=== PATIENT | male | born 1975 | race Caucasian/White ===

== ENCOUNTER 2022-12-03 15:43 | Emergency (ER) | payer OTHER, SELFPAY ==
[2022-12-03 16:25] VITALS: BP 110/76; PULSE 99; RESP 18; TEMP 36.9; O2SAT 97; BMI 31.5
--- NOTE | 2022-12-03 16:32 | ED_ITS ---
HPI - Syncope General Time Seen by Provider: 16:32 Date Seen: 12/03/22 Chief Complaint: Syncope/Fainted Stated Complaint: Passed out in Kitchen Time Seen by Provider: 12/03/22 16:30 Source: patient, family and RN notes reviewed Mode of arrival: ambulatory Limitations: no limitations History of Present Illness HPI narrative: 47-year-old male who presents today after syncopal episode and palpitations. Patient reports that he went up and down the stairs and after that felt like his heart was racing. He laid down for a while and symptoms did not improve, got up and took a couple of steps, passed out. Did not hit his head it does not complain of any pain. Denies any chest pain associated with this or shortness of breath, however does note that he has had recent increase in his reflux symptoms primarily in the evening. He denies nausea, vomiting, diarrhea. No new medications. He says that his heart rate felt fast but not irregular and spouse reports that was around 180. He drinks about 1 cup of coffee a day but no other caffeine or energy drinks or pre workout drinks. Patient and spouse report that patient had a similar episode to this on October h although he did not pass out at that time. Head tried to follow-up with his primary care provider but was not able to schedule an appointment. Related Data Home Medications Medication Instructions Recorded Confirmed bupropion HCl 300 mg 24 hr tablet, 450 mg PO DAILY 12/03/22 12/03/22 extended release dextroamphetamine-amphetamine ER 30 mg PO DAILY 12/03/22 12/03/22 30 mg 24hr capsule,extend release (Adderall XR) escitalopram oxalate 5 mg tablet 5 mg PO DAILY 12/03/22 12/03/22 (Lexapro) loratadine 10 mg tablet 10 mg PO DAILY 12/03/22 12/03/22 Allergies Allergy/AdvReac Type Severity Reaction Status Date / Time No Known Drug Allergies Allergy Verified 12/03/22 16:22 Review of Systems Status of ROS: Reports: 10 or more systems reviewed and unremarkable except as noted in History and below Exam Narrative: Exam Narrative: General: Well-developed and well-nourished, no acute distress Head: Atraumatic and normocephalic Eyes: Pupils are equal reactive, extraocular motions intact, conjunctiva clear ENT: External nose and ears are normal, posterior pharynx without erythema or exudate Neck: No midline cervical tenderness, full spontaneous range of motion the neck, trachea midline, no adenopathy Heart: Regular rate and rhythm no murmurs or thrills Lungs: Clear to auscultation bilaterally without wheezes or crackles Abdomen: Soft, nontender, nondistended with active bowel sounds Musculoskeletal: No tenderness, deformity, or edema Neurologic: Awake, alert, and oriented x3, no gross focal neurologic deficits, cranial nerves intact as tested Psych: Mood and affect are appropriate Skin: No rashes Const: Vital Signs, click to edit/add: Vital Signs - 24 hr 12/03/22 16:25 Temperature 98.4 F Pulse Rate [Right Pulse Oximeter] 99 Respiratory Rate 18 Blood Pressure [Ri ght Upper Arm] 110/76 Pulse Oximetry 97 Oxygen Delivery Me thod Room Air Course Course Hospital Course: Patient seen examined, prior records reviewed. Patient today presents with palpitations and a syncopal episode. By history it sounds like rate was about 180 and was regular. This by description would be most consistent with SVT, cannot exclude flutter fibrillation but again reported to be regular so fibrillation less likely. No chest pain associated with this episode but does note increased reflux symptoms recently. This may be contributing to some cardiac irritability precipitating SVT, or could be related to anginal symptom. Labs and fluids are ordered and will discuss further treatment with the patient. Consider beta-tito temporarily until patient can be seen by Cardiology and have a Holter monitor and further testing. Reevaluation(s) Time of Reevaluation #1: 17:37 Reevaluation #1: Labs independently interpreted by me with normal hemoglobin, negative troponin, reassuring metabolic panel and magnesium. Patient remains stable in the emergency department and asymptomatic. Needs to follow-up with cardiology and primary care for Zio patch and consideration for further testing and possible ab lation depending on dysrhythmia. Discussed possible beta-tito initiation with the patient. He would like to wait and speak to his regular doctor and have more testing done prior to this. His spouse has had prior cardiac surgery and apparently had SVT so they are familiar with what this is, evaluation treatment. Vital Signs Vital signs: Initial Vital Signs Temperature 98.4 F 12/03/22 16:25 Temperature Source Temporal Artery Scan 12/03/22 16:25 Pulse Rate 99 12/03/22 16:25 Respiratory Rate 18 12/03/22 16:25 Blood Pressure 110/76 12/03/22 16:25 Blood Pressure Mean 87 12/03/22 16:25 Blood Pressure Position Sitting 12/03/22 16:25 Pulse Oximetry 97 12/03/22 16:25 Oxygen Delivery Method Room Air 12/03/22 16:25 Vital Signs Temperature 98.4 F 12/03/22 16:25 Pulse Rate 99 12/03/22 16:25 Respiratory Rate 18 12/03/22 16:25 Blood Pressure 110/76 12/03/22 16:25 Pulse Oximetry 97 12/03/22 16:25 Oxygen Delivery Method Room Air 12/03/22 16:25 Temperature 98.4 F 12/03/22 16:25 Pulse Rate 99 12/03/22 16:25 Respiratory Rate 18 12/03/22 16:25 Blood Pressure 110/76 12/03/22 16:25 Pulse Oximetry 97 12/03/22 16:25 Oxygen Delivery Method Room Air 12/03/22 16:25 MDM - Syncope Lab Data Labs: Lab Results 12/03/22 12/03/22 Range/Units 16:43 16:45 WBC 6.17 (4.50-11.00) K/uL RBC 5.75 (4.30-5.90) m/uL Hgb 16.3 (13.5-17.5) gm/dL Hct 48.2 (37.0-53.0) % MCV 84 (80-100) fL MCH 28 (26-34) pg MCHC 34 (32-36) gm/dL RDW Coeff of Andrei 12.0 (11.5-15.5) % Plt Count 349 (140-440) K/uL Neut % (Auto) 49.6 (42.0-72.0) % Lymph % (Auto) 36.6 (20-44) % [place] % (Auto) 10.9 (0.0-11.0) % Eos % (Auto) 1.3 (0.0-7.0) % Baso % (Auto) 0.6 (0.0-3.0) % Neut # (Auto) 3.06 (1.7-7.0) K/uL Lymph # (Auto) 2.26 (0.90-2.90) K/uL [place] # (Auto) 0.70 (0.00-0.90) K/UL Eos # (Auto) 0.08 (0.00-0.50) K/uL Baso # (Auto) 0.04 (0.00-0.30) K/uL Abs Immat Gran (auto) 0.06 (0.00-0.30) K/uL Imm/Tot Granulo (auto) 1.0 % Sodium 136 (135-149) mmol/L Potassium 4.5 (3.6-5.1) mmol/L Chloride 104 (96-114) mmol/L Carbon Dioxide 22 (20-32) mmol/L Anion Gap 10 (7-15) mEq/L BUN 21 (5-24) mg/dL Creatinine 1.0 (0.5-1.5) mg/dL Estimated Creat Clear 105.42 Estimated GFR 95 ml/min Glucose 81 (60-115) mg/dL Calcium 9.1 (8.4-10.6) mg/dL Magnesium 2.2 (1.5-2.6) mg/dL POC Troponin I 0.00 L (0.01-0.04) ng/ml ECG Data Attestation: I personally reviewed and interpreted this ECG as follows: ECG interpretation date: 12/03/22 ECG interpretation time: 16:17 Prior ECG tracings: not available for review Interpretation: Normal sinus rhythm rate 89, no acute ST elevations or depressions, normal intervals, normal axis, QTC 442, IL 160. No prior for comparison. Discharge Plan Discharge Clinical Impression: Heart palpitations, Syncope Patient Disposition: Home w/ Parent or Adult Condition: Stable Instructions: Supraventricular Tachycardia (ED), Heart Palpitations (DC) Additional Instructions: Avoid caffeine and alcohol Follow-up with primary care as soon as possible for further evaluation and treatment Activity Level: Activity as Tolerated Discharge Diet: Regular Prescriptions: No Action loratadine 10 mg tablet 10 mg PO DAILY escitalopram oxalate [Lexapro] 5 mg tablet 5 mg PO DAILY dextroamphetamine-amphetamine [Adderall XR] 30 mg capsule,extended release 24hr 30 mg PO DAILY bupropion HCl 300 mg tablet extended release 24 hr 450 mg PO DAILY Stand Alone Forms: [employer] Info Instructions
[2022-12-03 17:04] LABS: Basophils Absolute Auto 0.04 K/uL (0.00-0.30); Basophils Percent Auto 0.6 % (0.0-3.0); Eosinophils Absolute Auto 0.08 K/uL (0.00-0.50); Eosinophils Percent Auto 1.3 % (0.0-7.0); Hematocrit 48.2 % (37.0-53.0); Hemoglobin* 16.3 gm/dL (13.5-17.5); Immature Granulocytes Abs Auto 0.06 K/uL (0.00-0.30); Lymphocytes Absolute Auto 2.26 K/uL (0.90-2.90); Lymphocytes Percent Auto 36.6 % (20-44); Mean Corpuscular HGB Conc 34 gm/dL (32-36); Mean Corpuscular Hemoglobin 28 pg (26-34); Mean Corpuscular Volume 84 fL (80-100); Monocytes Percent Auto 10.9 % (0.0-11.0); Neutrophils Absolute Auto 3.06 K/uL (1.7-7.0); Neutrophils Percent Auto 49.6 % (42.0-72.0); Platelet Count* 349 K/uL (140-440); Red Blood Count 5.75 m/uL (4.30-5.90); White Blood Count* 6.17 K/uL (4.50-11.00)
[2022-12-03 17:12] LABS: Slide Review Reflex No
[2022-12-03 17:23] LABS: Chloride* 104 mmol/L (96-114); Sodium* 136 mmol/L (135-149)
[2022-12-03 17:24] LABS: Potassium* 4.5 mmol/L (3.6-5.1)
[2022-12-03 17:26] LABS: Est. Creatinine Clearance* 105.42; Estimated Glomerular Filt Rate 95 ml/min
[2022-12-03 17:27] LABS: Anion Gap 10 mEq/L (7-15); Blood Urea Nitrogen* 21 mg/dL (5-24); Calcium* 9.1 mg/dL (8.4-10.6); Carbon Dioxide* 22 mmol/L (20-32); Glucose* 81 mg/dL (60-115); Magnesium* 2.2 mg/dL (1.5-2.6)
[2022-12-03 17:44] VITALS: PULSE 88; O2SAT 97
[2022-12-03 17:45] VITALS: BP 121/86; PULSE 86; O2SAT 98
[2022-12-03 17:46] VITALS: PULSE 87; O2SAT 98
== END 2022-12-03 17:59 | disposition home or self-care (01) ==
PROVIDERS: Emergency Provider Family Medicine; PCP Physician Assistant Medical
DX: R55 Syncope and collapse (principal); R00.2 Palpitations
CPT/HCPCS: 36415; 80048; 83735; 84484; 85025; 93005; 99284

== ENCOUNTER 2023-08-22 20:33 | Outpatient (CLI) | payer OTHER, SELFPAY ==
--- OUTSIDE RECORDS SUMMARY | 2023-08-22 20:36 | XMS_ITS | Continuity of Care Document ---
Author Name [facility] Organization [facility] Care Team Providers Care Hoop Cutter Name Role Phone [facility] Unavailable Unavailable Problems Combined list of problems from Department of Defense and Veterans Affairs facilities. It does not include entries that were removed or entered in error. Problem Status Onset Date Problem Type Date of Resolution Comments Source Exposure to potentially hazardous substance ([facility] [id number]) Active 06/16/19 24 Condition Jun 16, 2023 Entered By: HOLLAND LOPEZ [facility]: [facility] LO[facility] Documentation Initiative [facility] Pain in left ankle and joints of left foot Active 08/31/19 17 Condition [facility] Allergic rhinitis Active Condition [facility] Attention deficit hyperactivity disorder, predominantly inattentive type Active Condition [facility] Depression Active Condition [facility] Erectile dysfunction Active Condition [facility] Family social history Active Condition Jan 14, 2021 Entered By: JOHN CESAR Comment: 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 2 kids.Dec 27, 2022 Entered By: JOHN CESAR Comment: M Aunt w SLE, Mother w MS. +moms side w autoimmune disease. MGF CVA. Dad + depression. 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 [place]ed [place] Entered By: JOHN CESAR Comment: Quit smoking 2009. Over 100 cig/lifetime. No etoh. [facility] Migraine Active Condition [facility] Osteoarthritis Active Condition [facility] Osteoarthritis Active Condition Jun 102018 Entered By: PASCUAL TROTTER Comment: hands [facility] Pes planus Active Condition Feb 01 Entered By: CLAUDIA MUNROE Comment: bilateral, appears to cause left ankle pains [facility] Posttraumatic stress disorder Active Condition [facility] Primary erectile dysfunction Active Condition [facility] Seasonal allergic rhinitis Active Condition [facility] Spasm of bladder Active Condition [facility] Strain of tendon of foot and ankle Active Condition [facility] skin disorders appendage hair follicle folliculitis Inactive Condition FOLLICULITIS: Discussed folliculitis vs pseudo folliculitis. Instructed to obtain a 2 bladed razor instead of the 5 blade razor he is currently using. Continue to shave after showering, but don''t dry face first. Have Rx''d a 5 day course of Septra DS and some topical Bactroban. F/U prn after the abx are complete. No shaving waiver needed. [facility] migraine headache Active Condition [facility] GRAINE HEADACHE: - Diagnosis based on chief complaint and exam findings - Maxalt given at 1020 patient reports symptoms improved - Encouraged to regulate sleep cycle - Don''t skip meals - Increase water/fluid intake - RTC if no improvement or condition worsens - Report to ER if you experience fevers greater than 103, severe headache, visual changes/disturb ances, lightheadedness , syncope, chest pain, tachycardia, SOB, wheezing, numbness, tingling, change in strength, etc - Discussed patient care with preceptor - Patient verbalized agreement and understanding [facility] no psychiatric diagnosis or condition on axis I Inactive Condition [facility] Need For Prophylactic Measure Inactive Condition [facility] visit for: issue medical certificate Inactive Condition [facility] assessment of patient condition work status Active Condition [facility] deviated nasal septum Active Condition [facility] lateral epicondylitis (tennis elbow) left Active Condition [facility] visit for: issue medical certificate fitness Inactive Condition [facility] visit for: issue repeat prescription for medication Inactive Condition [facility] pharyngitis Inactive Condition [facility] upper respiratory infection Inactive Condition [facility] axis V global assess of functioning (GAF) scale ___ (100-0) Active Condition [facility] psychiatric diagnosis or condition deferred on axis II Active Condition [facility] Administrative Evaluation Services Inactive Condition [facility] male erectile disorder Active Condition [facility] prostatitis Active Condition [facility] bladder disorders Active Condition [facility] assess patient condition work-related occupational disease Active Condition [facility] conditions influencing health status Active Condition [facility] visit for: screening exam traumatic brain injury Active Condition [facility] visit for: examination of subpopulation Active Condition [facility] urethritis Inactive Condition DoD pain during urination (dysuria) Active Condition [facility] urinary tract infection Inactive Condition [facility] visit for: services physical pre-deployment Active Condition [facility] tendonitis Active Condition DoD joint pain, localized in the wrist Active Condition DoD tenosynovitis de Quervain's Inactive Condition DoD rhythm disorder Active Condition DoD primary snoring Active Condition DoD post-traumatic stress disorder Active Condition [facility] visit for: occupational health / fitness exam Active Condition [facility]D Need For Vaccination Against Influenza Inactive Condition [facility] pharyngitis acute Inactive Condition [facility] xerosis cutis Inactive Condition DoD anxiety disorder NOS Active Condition DoD plantar fasciitis Inactive Condition [facility] FASCIITIS: - Diagnosis based on chief complaint and exam findings - Plantar Fasciitis exercise handout given - RTC if no improvement or condition worsens - Report to ER if you experience fevers greater than 103, severe headache, visual changes/disturb ances, lightheadedness , syncope, chest pain, tachycardia, SOB, wheezing, numbness, tingling, change in strength, etc - Discussed patient care with preceptor - Patient verbalized agreement and understanding DoD generalized anxiety disorder Inactive Condition [facility] hyperlipidemia Active Condition DoD major depression chronic Active Condition No SI/HIResidual symptoms suggestive of ongoing depression, vs. med side effects,, vs. other. Patient concerned for [facility]ef[facility] for ongoing eval and mgmtNeed assessment for WWQ statusAt risk for PTSD? At risk for TBI[31yo AD male with chronic major depression on Wellbutrin and Celexa, ambien and prn xanax -- requesting psychiatry eval for ongoing eval and tx -- assess and comment on WWQ status.] [facility] closed fracture distal phalanx 2nd finger Inactive Condition [facility] primary insomnia Inactive Condition [facility] allergic rhinitis Active Condition DoD sciatica Inactive Condition [facility] Patient Counseling: Active Condition DoD insomnia Active Condition history of insomnia has done well on this med in the past, needs refill DoD depression Active Condition history o f depression and anxiety, not suicidal or homicidal recently pcs'd needs refill of meds, will temp refill as this is an acute sick call slot, patient will make a routine appt with his PCM [facility] visit for: screening exam depression Inactive Condition DoD lateral epicondylitis (tennis elbow) right Inactive Condition ASA prn. ice. handout. discussed dx and rehab today. [facility] visit for: services physical Active Condition [facility] visit for: administrative purpose Inactive Condition Patient received all post deployment couseling as required [facility] visit for: services flight physical Inactive Condition [facility] astigmatism regular Active Condition [facility] refractive error - myopia Active Condition [facility] alcohol abuse Active Condition [facility] Diagnosis: ICD-10-CM F43.12 Post-traumatic stress disorder, chronic Active Diagnosis [facility] Diagnosis: ICD-10-CM F33.9 Major depressive disorder, recurrent, unspecified Active Diagnosis [facility] Diagnosis: ICD-10-CM 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 Medication Details Route Status Patient Instructions Prescription Expires Prescription Number Last Dispense Date Ordering Provider Order Date Order Qty Source AMPHETAMINE /DEXTROAMPH ETAMINE 30MG TAB TAKE ONE TABLET BY MOUTH EVERY DAY ORALLY ACTIVE SAM CESAR F 2020 [facility] BUPROPION HCL 150MG 24HR TAB,SA TAKE THREE TABLETS BY MOUTH EVERY MORNING FOR MOOD ORALLY ACTIVE 06/09/2024 [id number] Neda CHESTER T 2023 270 [facility] BUPROPION HCL 150MG 24HR TAB,SA TAKE THREE TABLETS BY MOUTH EVERY MORNING FOR MOOD ORALLY DISCONT INUED 04/20/2024 [id number] Neda CHESTER T 2023 270 [facility] BUPROPION HCL 150MG 24HR TAB,SA TAKE THREE TABLETS BY MOUTH EVERY MORNING FOR MOOD ORALLY 02/18/2023 [id number] MATTHIEU SALAS 2021 270 [facility] CARBOXYMETH YLCELLULOSE NA 1% GEL,OPH 0.4ML INSTILL 1 DROP TO BOTH EYES TWICE A DAY FOR EYE IRRITATI ON BOTH EYES 08/17/2023 [id number] WALTERS,P ATRICIA M 2022 90 [facility] CELECOXIB 200MG CAP TAKE ONE CAPSULE BY MOUTH EVERY DAY NEEDED FOR PAIN ORALLY 02/24/2023 [id number] SAM CESAR F 2021 90 [facility] DEXTROAMPHE TAMINE-AMPH ET ER (dextroamph etamine sulf-saccha rate/amphet amine sulf-aspart ate), 20 MG, CAP ER 24H, ORAL, [employer], 100 ea. BOTTLE Active [id number] 2023 14 Pharmac y [facility]ilit y DEXTROAMPHE TAMINE-AMPH ET ER (dextroamph etamine sulf-saccha rate/amphet amine sulf-aspart ate), 30 MG, CAP ER 24H, ORAL, [employer], 100 ea. BOTTLE Active [id number] 2023 30 Pharmac y [facility] t[facility] Service Facilit y DEXTROAMPHE TAMINE-AMPH ET ER (dextroamph etamine sulf-saccha rate/amphet amine sulf-aspart ate), 30 MG, CAP ER 24H, ORAL, [employer], 100 ea. BOTTLE Active [id number] 2023 30 Pharmac y [facility] t[facility] Service Facilit y ESCITALOPRA M OXALATE 10MG TAB TAKE ONE TABLET BY MOUTH EVERY DAY FOR MOOD ORALLY ACTIVE 07/25/2024 [id number] 4 Neda CHESTER T 2023 90 [facility] ESCITALOPRA M OXALATE 10MG TAB TAKE ONE TABLET BY MOUTH EVERY DAY FOR MOOD ORALLY DISCONT INUED (EDIT) 09/07/2023 [id number] Neda CHESTER T 2023 90 [facility] ESCITALOPRA M OXALATE 5MG TAB TAKE ONE TABLET BY MOUTH AT BEDTIME FOR DEPRESSI ON ORALLY 05/26/2023 [id number] MATTHIEU SALAS 2022 90 [facility] FLUTICASONE PROPIONATE 50MCG/SPRAY SOLN,NASAL, 16GM SPRAY 2 SPRAYS IN EACH NOSTRIL EVERY DAY FOR ALLERGIE S NASAL 02/24/2023 [id number] SAM CESAR F 2021 3 [facility] LORATADINE 10MG TAB TAKE ONE TABLET BY MOUTH EVERY DAY NEEDED FOR ALLERGIE S ORALLY 02/24/2023 [id number] SAM CESAR F 2021 90 [facility] METOPROLOL SUCCINATE (METOPROLOL SUCCINATE), 25 MG, TAB ER 24H, ORAL, [facility], 500 ea. BOTTLE Cancele d [id number] : 2023 0 Pharmac y [facility] t[facility] Service [facility]ilit y METOPROLOL SUCCINATE (METOPROLOL SUCCINATE), 25 MG, TAB ER 24H, ORAL, [facility], 500 ea. BOTTLE Active [id number] 2023 120 Pharmac y [facility]ilit y OMEPRAZOLE 20MG CAP,EC TAKE 1 CAPSULE BY MOUTH EVERY DAY ORALLY ACTIVE SAM CESAR F 2022 [facility] RIZATRIPTAN BENZOATE 10MG TAB,ORALLY DISINTEGRAT ING DISSOLVE ONE TABLET IN MOUTH ONCE NEEDED FOR HEADACHE S *MAY REPEAT AFTER 2 HOURS IF SYMPTOMS PERSIST ORALLY 02/25/2023 [id number] SAM CESAR 2021 18 [facility] SILDENAFIL CITRATE 100MG TAB TAKE ONE TABLET BY MOUTH NEEDED - TAKE 1 HOUR BEFORE ANTICIPA TISHA SEXUAL ACTIVITY --MAXIMU M 6 DOSES FOR 30-DAY SUPPLY. FOR ERECTION S ORALLY ACTIVE 12/28/2023 [id number] SAM CESAR F 2022 18 [facility] SILDENAFIL CITRATE 100MG TAB TAKE ONE-HALF TABLET BY MOUTH NEEDED - TAKE 1 HOUR BEFORE ANTICIPA TISHA SEXUAL ACTIVITY --MAXIMU M 4 DOSES FOR 30-DAY SUPPLY. FOR ERECTION S ORALLY 09/17/2022 [id number] MATTHIEU SALAS 2021 9 [facility] Allergies, Adverse Reactions, Alerts Combined list of allergies from Department of Defense and Veterans Affairs facilities. It does not include entries that were removed or entered in error. Substance Category Reaction Severity Reaction type Status Date Reported Comments Source [facility] Propensity to adverse reaction (finding) Itching of eye active 7 [facility] {Cla } Allergy to substance (disorder) Unknown active 3 [facility] Immunizations Combined list of available immunizations from the Department of Defense and Veterans Affairs facilities. Immunization Series Date Given Administered By Site Reaction Lot Number CVX Code Drug [facility] Rn Status Comments Source INFLUENZA, INJECTABLE, QUADRIVALENT, PRESERVATIVE FREE 2021 150 complet ed [facility] TDAP 2021 115 complet ed [facility] COVID-19 (PFIZER), MRNA, LNP-S, PF, 30 MCG/0.3 ML DOSE 3 2020 208 complet ed PFR; [id number]; 2 [facility] INFLUENZA, INJECTABLE, QUADRIVALENT, PRESERVATIVE FREE 2020 150 complet ed [facility] COVID-19 (PFIZER), MRNA, LNP-S, PF, 30 MCG/0.3 ML DOSE 2 2020 208 complet ed PFR; [id number]; 1 [facility] COVID-19 (CloSys), MRNA, LNP-S, PF, 30 MCG/0.3 ML DOSE 1 2020 208 complet ed PFR; [id number]; 1 [facility] INFLUENZA, INJECTABLE, QUADRIVALENT, PRESERVATIVE FREE 2019 150 complet ed [facility] INFLUENZA, SEASONAL, INJECTABLE, PRESERVATIVE FREE 2018 140 complet ed [facility] Influenza, injectable, Madin Lana Canine Kidney, quadrivalent with preservative 1 2016 [id number] Seqirus (SEQ) comple t ed Influenza , injectabl e, Madin Lana Canine Kidney, quadrival ent with preservat mi DoD TD(ADULT) UNSPECIFIED FORMULATION 2016 139 complet ed [facility] tetanus and diphtheria toxoids, adsorbed, preservative free, for adult use (2 Lf of tetanus toxoid and 2 Lf of diphtheria toxoid) 3 2016 [id number] Sanofi Pasteur (PMC) complet ed tetanus and diphtheri a toxoids, adsorbed, preservat mi free, for adult use (2 Lf of tetanus toxoid and 2 Lf of diphtheri a toxoid) DoD Influenza, seasonal, injectable 0 2015 [id number] 141 [employer] (SEQ) complet ed Influenza , seasonal, injectabl e DoD influenza, live, intranasal, quadrivalent 1 2014 [id number] 149 [employer] (MED) complet ed influenza , live, intranasa l, quadrival ent DoD influenza, live, intranasal, quadrivalent 18 2013 [id number] 149 [employer], [employer]. (MED) complet ed influenza , live, intranasa l, quadrival ent DoD measles, mumps and rubella virus vaccine 2 2013 [id number] 03 Merck (MSD) complet ed measles, mumps and rubella virus vaccine DoD anthrax vaccine 6 2013 [id number] 24 [facility] ([facility]) complet ed anthrax vaccine DoD typhoid Vi capsular polysaccharid e vaccine 8 2013 [id number] 101 Sanofi Pasteur ([facility]) complet ed typhoid Vi capsular polysacch aride vaccine DoD Influenza, seasonal, injectable, preservative free 17 2012 [id number] 140 [employer]. (NOV) complet ed Influenza , seasonal, injectabl e, preservat mi free DoD influenza virus vaccine, live, attenuated, for intranasal use 17 2011 [id number] 111 [employer], [employer]. (MED) complet ed influenza virus vaccine, live, attenuate d, for intranasa l use DoD tuberculin skin test; purified protein derivative solution, intradermal 6 2011 Unknown, Provider [id number] 96 Sanofi Pasteur (PMC) complet ed tuberculi n skin test; purified protein derivativ e solution, intraderm al [facility] Influenza, seasonal, injectable, preservative free 1 2010 140 Transcribed (TRS) complet ed Influenza , seasonal, injectabl e, preservat mi free DoD influenza virus vaccine, split virus (incl. purified surface antigen)-reti red CODE 1 2010 [id number] 15 [facility] [employer] (CS) complet ed influenza virus vaccine, split virus (incl. purified surface antigen)- retired CODE DoD anthrax vaccine 5 2010 [id number] 24 [facility] ([facility]) complet ed anthrax vaccine DoD typhoid Vi capsular polysaccharid e vaccine 1 2010 [id number] 101 Sanofi Pasteur ([facility]) complet ed typhoid Vi capsular polysacch aride vaccine DoD anthrax vaccine 5 2007 [id number] 24 [facility] ([facility]) complet ed anthrax vaccine DoD typhoid Vi capsular polysaccharid e vaccine 1 2007 [id number] 101 Sanofi Pasteur ([facility]) complet ed typhoid Vi capsular polysacch aride vaccine DoD influenza virus vaccine, live, attenuated, for intranasal use 1 2007 [id number] 111 [employer], [employer]. (MED) complet ed influenza virus vaccine, live, attenuate d, for intranasa l use DoD anthrax vaccine 4 2006 [id number] 24 [facility] ([facility]) complet ed anthrax vaccine DoD influenza virus vaccine, live, attenuated, for intranasal use 0 2006 [id number] 111 [facility] (SKB) complet ed influenza virus vaccine, live, attenuate d, for intranasa l use DoD anthrax vaccine 3 2006 [id number] 24 [facility] ([facility]) complet ed anthrax vaccine DoD tetanus toxoid, reduced diphtheria toxoid, and acellular pertu is vaccine, adsorbed 1 2006 [id number] 115 Sanofi Pasteur ([facility]) complet ed tetanus toxoid, reduced diphtheri a toxoid, and acellular pertussis vaccine, adsorbed DoD anthrax vaccine 1 2006 [id number] 24 [facility] ([facility]) complet ed anthrax vaccine DoD varicella virus vaccine 0 2005 21 () Not Given varicella virus vaccine [facility] tuberculin skin test; purified protein derivative solution, intradermal 1 2005 Unknown, Provider [id number] 96 Sanofi Pasteur ([facility]) complet ed tuberculi n skin test; purified protein derivativ e solution, intraderm al [facility] influenza virus vaccine, live, attenuated, for intranasal use 1 2005 [id number] 111 [employer] (MED) complet ed influenza virus vaccine, live, attenuate d, for intranasa l use DoD anthrax vaccine 1 2005 [id number] 24 [facility] ([facility]) complet ed anthrax vaccine DoD typhoid Vi capsular polysaccharid e vaccine 1 2005 [id number] 101 Sanofi Pasteur ([facility]) complet ed typhoid Vi capsular polysacch aride vaccine DoD influenza virus vaccine, live, attenuated, for intranasal use 1 2004 [id number] 111 [employer]. (MED) complet ed influenza virus vaccine, live, attenuate d, for intranasa l use [facility] influenza virus vaccine, split virus (incl. purified surface antigen)-reti red CODE 1 2003 [id number] 15 Sanofi Pasteur (PMC) complet ed influenza virus vaccine, split virus (incl. purified surface antigen)- retired CODE [facility] influenza virus vaccine, whole virus 0 2003 [id number] 16 Sanofi Pasteur (PMC) complet ed influenza virus vaccine, whole virus [facility] vaccinia (smallpox) vaccine 0 2003 [id number] 75 [employer] (WAL) complet ed vaccinia (smallpox ) vaccine [facility] typhoid vaccine, parenteral, other than acetone-kille d, dried 0 2003 [id number] 41 Sanofi Pasteur (PMC) complet ed typhoid vaccine, parentera l, other than acetone-k illed, dried [facility] tuberculin skin test; purified protein derivative solution, intradermal 1 2003 Unknown, Provider [id number] 96 Teresa () complet ed tuberculi n skin test; purified protein derivativ e solution, intraderm al [facility] rabies vaccine, for intramuscular injection RETIRED CODE 3 2003 [id number] 18 [place] (CON) complet ed rabies vaccine, for intramusc ular injection RETIRED CODE [facility] [place] Encephalitis Vaccine SC 3 2003 [id number] 39 Sanofi Pasteur (PMC) complet ed [place] Encephali tis Vaccine [facility] rabies vaccine, for intramuscular injection RETIRED CODE 2 2003 [id number] 18 [place] (CON) complet ed rabies vaccine, for intramusc ular injection RETIRED CODE [facility] [place] Encephalitis Vaccine SC 2 2003 [id number] 39 Sanofi Pasteur (PMC) complet ed [place] Encephali tis Vaccine [facility] rabies vaccine, for intramuscular injection RETIRED CODE 1 2003 [id number] 18 [place] (CON) complet ed rabies vaccine, for intramusc ular injection RETIRED CODE [facility] [place] Encephalitis Vaccine SC 1 2003 [id number] 39 Sanofi Pasteur (PMC) complet ed [place] Encephali tis Vaccine [facility] influenza virus vaccine, whole virus 0 2002 [id number] 16 [employer] (PWJ) complet ed influenza virus vaccine, whole virus DoD tuberculin skin test; purified protein derivative solution, intradermal 1 2002 Unknown, Provider 96 () complet ed tuberculi n skin test; purified protein derivativ e solution, intraderm al DoD influenza virus vaccine, whole virus 0 2001 [id number] 16 Sanofi Pasteur ([facility]) complet ed influenza virus vaccine, whole virus DoD tuberculin skin test; purified protein derivative solution, intradermal 1 2001 Unknown, Provider 96 () complet ed tuberculi n skin test; purified protein derivativ e solution, intraderm al DoD typhoid Vi capsular polysaccharid e vaccine 0 2001 [id number] [facility] ([facility]) complet ed typhoid Vi capsular polysacch aride vaccine DoD influenza virus vaccine, whole virus 0 2000 [id number] 16 Merck (MSD) complet ed influenza virus vaccine, whole virus DoD influenza virus vaccine, whole virus 0 2000 [id number] 16 [facility] complet ed influenza virus vaccine, whole virus DoD typhoid vaccine, parenteral, other than acetone-kille d, dried 0 1999 [id number] 41 Merieux (IM) complet ed typhoid vaccine, parentera l, other than acetone-k illed, dried DoD tuberculin skin test; purified protein derivative solution, intradermal 1 1999 Unknown, Provider [id number] 96 [facility] ([facility]) complet ed tuberculi n skin test; purified protein derivativ e solution, intraderm al DoD hepatitis B vaccine, adult dosage 3 1999 [id number] 43 [employer]line (B) complet ed hepatitis B vaccine, adult dosage DoD influenza virus vaccine, whole virus 0 1998 [id number] 16 [facility] ([facility]) complet ed influenza virus vaccine, whole virus DoD influenza virus vaccine, whole virus 0 [id number] 16 [employer] (WAL) complet ed influenza virus vaccine, whole virus DoD typhoid vaccine, parenteral, other than acetone-kille d, dried 0 1997 [id number] 41 Merieux (IM) complet ed typhoid vaccine, parentera l, other than acetone-k illed, dried DoD hepatitis B vaccine, adult dosage 2 1997 [id number] 43 [employer]line (SKB) complet ed hepatitis B vaccine, adult dosage DoD yellow fever vaccine 0 [id number] 37 [employer] (CON) complet ed yellow fever vaccine DoD hepatitis B vaccine, adult dosage 1 1997 [id number] 43 [employer] (SKB) complet ed hepatitis B vaccine, adult dosage DoD hepatitis A vaccine, adult dosage 2 1997 [id number] Merck (MSD) complet ed hepatitis A vaccine, adult dosage DoD trivalent poliovirus vaccine, live, oral 0 1996 02 () complet ed trivalent polioviru s vaccine, live, oral DoD measles, mumps and rubella virus vaccine 0 1996 03 () complet ed measles, mumps and rubella virus vaccine DoD hepatitis A vaccine, adult dosage 1 1996 [id number] [employer] (SKB) complet ed hepatitis A vaccine, adult dosage DoD meningococcal polysaccharid e vaccine (MPSV4) 0 1996 32 () complet ed meningoco ccal polysacch aride vaccine (MPSV4) DoD tetanus and diphtheria toxoids, adsorbed, preservative free, for adult use (2 Lf of tetanus toxoid and 2 Lf of diphtheria toxoid) 0 1996 09 () complet ed tetanus and diphtheri a toxoids, adsorbed, preservat mi free, for adult use (2 Lf of tetanus toxoid and 2 Lf of diphtheri a toxoid) DoD influenza virus vaccine, whole virus 0 1996 16 () complet ed influenza virus vaccine, whole virus DoD Vital Signs Combined list of inpatient and outpatient Vital Signs from Department of Defense and Veterans Affairs, ranging from 12 months to all on record, depending upon the facility. Vital Sign Value Date Comments Source Encounters Combined list of: 1) Encounters from Department of Veterans Affairs facilities going back up to thelast 18 months. 2) Encounters from the Department of Defense facilities going back up to 280 months. Location Location Details Encounter Type Encounter Number Reason For Visit Attending Provider ADM Date DC Date Status Disposition Source [facility] ) OUTPATIENT [id number] DANIEL CHANG 10/16 Released w/o Limitations KO[facility]([employer] [facility] Rose([employer] [facility] ([place] ) OUTPATIENT [id number] DANIEL CHANG 10/16 Released w/o Limitations [facility] KOJO Slade([employer] [facility] ([place] Jose [facility] KOJO Spicer([place] [facility] ([facility]) ) OUTPATIENT [id number] edema nose bride CLAUDIA MENDEZ 10/16 Released w/o Limitations [facility]([employer] [facility] ([place] Jose [facility] KOJO Spicer([place] [facility] ([facility]) ) OUTPATIENT [id number] cyst right side of nose. CLAUDIA MENDEZ 10/19 Released w/o Limitations [facility] KO[facility] Slade([employer] [facility] ([place] Jose [facility] KOJO Spicer([employer] Optometry [facility] ([facility]) ) OUTPATIENT [id number] OMAR Burciaga 02/11 Released w/o Limitations Jose [facility] KOJO Wood([employer] Optomet ry [facility] ([place] Jose [facility] KOJO Spicer([employer] Flight Medicine [facility] ([facility]) ) OUTPATIENT [id number] [facility] JOHAN Arevalo 06/10 Released w/o Limitations [facility] KOJO Slade([employer] Flight Medicin e [facility] ([place] Jose [facility] KOJO Spicer([employer] [facility] ) OUTPATIENT [id number] 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 MATTHIEU SALDANA 11/24 Released w/o Limitations [facility]([employer] Pediatr ics [facility] ([place] Jose [facility] KOJO Spicer([employer] [facility] TELE CONSULT [id number] possibl e food poisoni DELON Ridley 03/02 [facility]([employer] [facility] ([place] Jose [facility] KOJO Spicer(Basset t [facility]) OUTPATIENT [id number] FLASH ESTRADA 03/02 Released w/o Limitations [facility] KOJO Slade(Arango ett [facility]) Jose [facility] KOJO Spicer([employer] [facility] ([facility]) ) OUTPATIENT [id number] elbow pain CLAUDIA MENDEZ 03/07 Released w/o Limitations Jose [facility] KOJO Wood([employer] [facility] ([place] Jose [facility] KOJO Spicer([employer] [facility] ) TELE CONSULT [id number] milena WRIGHTLEMODESTO 03/07 [facility] KOJO Slade([employer] [facility] ([place])) Jose [facility] KOJO Spicer([employer] [facility] ) OUTPATIENT [id number] persona moreno referre d per life skills CLAUDIA MENDEZ 03/08 Released w/o Limitations Jose [facility] KOJO Wood([employer] [facility] ([place])) [facility] KOJO Rose([employer] [facility] ([place]) ) OUTPATIENT [id number] f/u meds CLAUDIA MENDEZ 05/25 Released w/o Limitations [facility] KOJO Slade([employer] [facility] ([place] Jose [facility] KOJO Spicer([employer] Flight [facility] ([facility]) ) TELE CONSULT [id number] ?? re: GRIS Rodriguez 06/23 [facility] KO[facility]ade([employer] Flight [facility]in [facility] ([place])) [facility]([employer] [facility] ([place]) ) OUTPATIENT [id number] f/u sleep disturb ances CLAUDIA MENDEZ 06/28 Released w/o Limitations [facility]([employer] [facility] ([place])) [facility] [place]Hear ing Conserv[facility] ion [facility]) OUTPATIENT [id number] FRANCY Mitchell 07/19 Released w/o Limitations [facility] [place](He aring Conserv ation [facility]) [facility]([employer] [facility] ([place]) ) OUTPATIENT [id number] shoulde r pain/ swollen gland underar m CLAUDIA MENDEZ 08/31 Released w/o Limitations [facility]([employer] [facility] ([place] OUTPAT[facility] [id number] 10/29 Released w/o Limitations [facility] OUTPATIENT [id number] 11/30 Released w/o Limitations [facility] OUTPATIENT [id number] 01/02 Released w/o Limitations [facility]([employer] [facility] ([place] ) OUTPATIENT [id number] change meds SUSIE FRANK 03/24 Released w/o Limitations [facility]([employer] [facility] ([place])) [facility]([employer] [facility] ([place] ) OUTPATIENT [id number] f/u and renewal of meds SUSIE FRANK 06/02 Released w/o Limitations [facility]([employer] [facility] ([place])) [facility](Wa [facility]rior Oper Med Team D_AD) OUTPATIENT [id number] MEDICAT ION BREANNA BROWN 08/24 Released w/o Limitations [facility]( [place] [facility] D_[place]) [facility](Hi rrior Oper Med Team D_AD) OUTPATIENT [id number] POSSIBL E PBI THEODORE NIETO 10/16 Released with Work/Duty Limitations [facility]( [place] [facility] Med Team D_AD) [facility] Oper Med Team D_AD) TELE CONSULT [id number] Lab results PEDRO NIEVES DL 10/19 [facility]( [place] [facility] Med Team D_AD) [facility](ZZ Neurology Cl WR) OUTPATIENT [id number] memory lapses or loss [facility] 11/12 Released w/o Limitations [facility]( ZZNeuro logy Cl WR) [facility](Hi rrior Oper Med Team D_AD) TELE CONSULT [id number] med refill NIEVESCANDICE VENEGASPATRIA DL 01/09 [facility]( [place] [facility] Med Team D_AD) [facility](Hi rrior Oper Med Team D_AD) OUTPATIENT [id number] severe cough POLY ROJO 01/10 Released w/o Limitations [facility]( [place] [facility] Med [facility] D_AD) [facility] OUTPATIENT [id number] 04/19 Released w/o Limitations [facility] OUTPATIENT [id number] 06/21 Released w/o Limitations [facility](Op erational Medicine MG) OUTPATIENT [id number] postdep loyment POLY ROJO 07/26 Released w/o Limitations [facility]( Operati onal Medicin e MG) [facility](Hi rrior Oper Med Team D_AD) OUTPATIENT [id number] f/u Occupat ional Therapy RUBIO MCCORMACK 08/13 Released w/o Limitations [facility]( [place] Oper Med Team D_AD) [facility]) DENTAL [id number] t-2 exam, insert HNG BATTLESIAT JOVONSAYDA Carlos O 11/27 Released w/o Limitations [facility]( [facility]) [facility]) DENTAL [id number] pro only MIGEL MILLER 11/28 Released w/o Limitations [facility]( [facility]) [facility]([place] [facility]) TELE CONSULT [id number] CC - AD w/ lower back pain. # . ISAIAH WU 12/19 [facility]( [place] s MG) [facility](Pr imary Care NO) OUTPATIENT [id number] refill meds JUAN CASTILLO 02/20 Released w/o Limitations [facility]( Primary Care NO) [facility](Pr imary Care NO) OUTPATIENT [id number] PER PT SORE THROAT MARY LOU TROTTER 03/03 Released w/o Limitations [facility]( Primary Care NO) [facility](Pr imary Care NO) OUTPATIENT [id number] Seasona l Flumist Lot# [id number] RADHA GALAVIZ 03/03 Released w/o Limitations [facility]( Primary Care NO) [facility](Pr imary Care NO) TELE CONSULT [id number] mental health appoint ment JUAN CASTILLO 12/08 [facility]( Primary Care NO) [facility](Pr imary Care NO) OUTPATIENT [id number] med f/u JUAN CASTILLO 02/16 Released w/o Limitations [facility] Primary Care NO) [facility](Pr imary Care NO) OUTPATIENT [id number] pain in left wrist JUAN CASTILLO 04/28 Released w/o Limitations [facility]( Primary Care NO) [facility](Pr imary Care NO) OUTPATIENT [id number] f/u for tendoni BREANNA Sims 06/29 Released w/o Limitations [facility]( Primary Care NO) [facility](Pr imary Care NO) OUTPATIENT [id number] deployi bashir, needs med renewal BREANNA CORDON 09/17 Released w/o Limitations [facility]( Primary Care NO) [facility](Op erational Medicine MG) OUTPATIENT [id number] pha/dep TOLU Hyde 09/29 Released w/o Limitations [facility]( Operati onal Medicin e MG) [facility](Op erational Medicine MG) OUTPATIENT [id number] TOLU Ulloa 09/29 Released w/o Limitations [facility]( Operati onal Medicin e MG) [facility](Fl ight Med MG) OUTPATIENT [id number] Hearing Test KRANTHI ALANIZ Moreno 10/19 Released w/o Limitations [facility]( Flight Med MG) [facility](Op erational Medicine MG) OUTPATIENT [id number] Pre-Dep loyment Clearan rani LEONEL LEON 11/10 Released w/o Limitations [facility]( Operati onal Medicin e MG) [facility] OUTPATIENT [id number] 11/20 Released w/o Limitations [facility] OUTPATIENT [id number] 12/22 [facility] OUTPATIENT [id number] 12/31 [facility] OUTPATIENT [id number] 01/02 Released w/o Limitations Theater Facilit y [facility](ZZZLS L TBI Screening Neurology ) OUTPATIENT [id number] OND/OEF Concuss ion Screen RAGHU CORDOBA 01/04 Released w/o Limitations [facility](ZZZ LSL TBI Screeni ng Neurolo gy) [facility](LSL Urology) OUTPATIENT [id number] difficu lty urinati DONALD Martinez 01/04 Released w/o Limitations [facility](LSL Urology ) [facility]) OUTPATIENT [id number] 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 MORRIS NAVARRO 01/04 Released w/o Limitations [facility]urin [facility]) [facility](LSL Urology) OUTPATIENT [id number] f/u DONALD GARCÍA 01/05 Released w/o Limitations [facility](LSL Urology ) [facility]) OUTPATIENT [id number] F/U-TCC MORRIS NAVARRO 01/05 Released w/o Limitations [facility]) [facility](Op erational Medicine MG) OUTPATIENT [id number] post deploym ent TOLU GRACE 01/12 Released w/o Limitations [facility]( Operati onal Medicin e MG) [facility](Ca se Managemen t Cl MG) TELE CONSULT [id number] New pt / air-tinbreanna DOOLEY ND, SKYLA 01/14 [facility]( Case Managem ent Cl MG) [facility](Op erational Medicine MG) OUTPATIENT [id number] Post-De ploymen t Clearan ce LEONEL LEON S 01/14 Released w/o Limitations [facility]( Operati onal Medicin e MG) [facility](Ca se Managemen t Cl MG) TELE CONSULT [id number] Update assessm ent SOUMYA ISRAEL, SKYLA 02/16 [facility]( Case Managem ent Cl MG) [facility](Fa chintan Med Cl Team M_Non-AD) OUTPATIENT [id number] MENTAL CONFUSI ON MELISSA VASQUEZ S 02/16 Released w/o Limitations [facility]( Family Med Cl Team M_Non-A D) [facility](Op tometry Clinic MG) OUTPATIENT [id number] eye exam DONALD YOUSIF 02/24 Released w/o Limitations [facility]( Optomet ry Clinic MG) [facility](Ur ology Cl Be) OUTPATIENT [id number] visit for: militar y service s marcelina mayer pre-dep PASCUAL Randall 02/24 Released w/o Limitations [facility]( Urology Cl Be) [facility](Ur ology Cl Be) TELE CONSULT [id number] LYNETTE Egan pt request eval for PRINCE SIERRA 03/11 [facility]( Urology Cl Be) [facility](Ur ology Cl Be) TELE CONSULT [id number] eduardoona PRINCE Doe 03/16 [facility]( Urology Cl Be) [facility](Ur ology Cl Be) TELE CONSULT [id number] testost PRINCE Millard 03/18 [facility]( Urology Cl Be) [facility](Ur ology Cl Be) OUTPATIENT [id number] f/up lab ASHWIN CARBAJAL 04/15 Released w/o Limitations [facility]( Urology Cl Be) [facility](Wa rrior Oper Med Team D_AD) TELE CONSULT [id number] Fit for duty letter needs cosme reKelsea #[phone] / . DONALD TROTTER 05/04 [facility]( [place] Oper Med Team D_AD) [facility] Med Cl Team M_Non-AD) OUTPATIENT [id number] fit for duty letter MELISSA VASQUEZ Joana 05/12 Released w/o Limitations [facility]( Family Med Cl Team M_Non-A D) [facility]) OUTPATIENT [id number] Notes Entered by: CANDIDO POLANCO A 09 Sep 2011 0803 ------- ------- ------- ------- -- [facility] BIMAL POLANCO 09/08 Released w/o Limitations [facility](P [facility]) [facility]) OUTPATIENT [id number] NEW PATIENT /WELBUT RIN REFILL MAZIN MULLEN 10/25 Released w/o Limitations [facility]) [facility]) OUTPATIENT [id number] EMERALD WEISS 10/27 Released w/o Limitations [facility]) [facility]) TELE CONSULT [id number] Notes Entered by: Reji HASSAN 01 Nov 2011 1312 ------- ------- ------- ------- -- 72HR/LILIBETH LOCKE 10/31 [facility]) [facility]) OUTPATIENT [id number] continu ed symptom s from 25 October MAZIN MULLEN 11/01 Released w/o Limitations [facility]) [facility]) OUTPATIENT [id number] Notes Entered by: KSENIA LOPEZ 22 Nov 2011 1211 ------- ------- ------- ------- -- KSENIA GIBSON 11/21 Released w/o Limitations [facility]) [facility]) OUTPATIENT [id number] Notes Entered by: KSENIA LOPEZ 22 Nov 2011 1219 ------- ------- ------- ------- -- KSENIA GIBSON 11/21 Released w/o Limitations [facility]) [facility]) TELE CONSULT [id number] Notes Entered by: RIMA LUNDBERG 02 Dec 2011 1108 ------- ------- ------- ------- -- 72HR REFILL LILIBETH GOLDEN 12/01 [facility]) [facility]) OUTPATIENT [id number] SEXUAL ISSUES LILIBETH GOLDEN 12/29 Released w/o Limitations [facility]) [facility]) TELE CONSULT [id number] Notes Entered by: SHASHA SANTOYO 06 Jan 2012 0949 ------- ------- ------- ------- -- Medicat LILIBETH Price 01/05 [facility]) [facility]) TELE CONSULT [id number] Notes Entered by: SALCEDO 27 Jan 2012 1507 ------- ------- ------- ------- -- 24HR ACUTE OLIVIA CHINCHILLA 01/26 [facility]) [facility] OUTPATIENT [id number] WRIST TENDONI SUMA NEUMANN 04/21 Released w/o Limitations [facility] ) [facility]) TELE CONSULT [id number] Notes Entered by: JULI CARTER AE 24 Apr 2012 1441 ------- ------- ------- ------- -- Results of SUMA Mandujano 04/24 [facility] ) [employer]([facility]) TELE CONSULT [id number] Notes Entered by: DEENA BRIDGES 04 May 2012 1254 ------- ------- ------- ------- -- 72 HR UMAIR VELAZQUEZ 05/04 [facility] ) [employer]([facility]) TELE CONSULT [id number] Notes Entered by: MICHA COLVIN 11 Aug 2012 0809 ------- ------- ------- ------- -- NETWORK RESULTS OSBALDO Bernard NOTE 05/24 SUMA MCCARTNEY 08/11 [facility] ) [employer]([facility]) TELE CONSULT [id number] Notes Entered by: MICHA COLVIN 11 Aug 2012 0812 ------- ------- ------- ------- -- NETWORK RESULTS OSBALDO Bernard NOTE 05/24 MCKAYLA NGUYEN 08/11 [facility] ) [employer]([facility]) OUTPATIENT [id number] DISCUSS POSS RHINOPL MCKAYLA KIMBALL 08/25 Released w/o Limitations [employer]([facility] ) [facility]) OUTPATIENT [id number] Notes Entered by: FUENTES WOOD 30 Oct 2012 1419 ------- ------- ------- ------- -- dta MIRIAM YOUSSEF Justin 10/30 Released w/o Limitations [facility]) [facility]) OUTPATIENT [id number] Notes Entered by: ALDO REIS 23 Nov 2012 1045 ------- ------- ------- ------- -- dta MORRIS BERMUDEZ 11/23 Released w/o Limitations [facility]) [facility]) OUTPATIENT [id number] RONNIE LANDINERLUAN 12/12 Released w/o Limitations [facility]) [facility]) OUTPATIENT [id number] Notes Entered by: ALDO REIS 12 Dec 2012 0953 ------- ------- ------- ------- -- dta MAURI STANLEYAJIT Coles 12/12 Released w/o Limitations [facility]) [facility]) OUTPATIENT [id number] Notes Entered by: KSENIA LOPEZ 27 Dec 2012 0810 ------- ------- ------- ------- -- KSENIA GIBSON 12/27 Released w/o Limitations [facility]) [facility]) TELE CONSULT [id number] Notes Entered by: BLESSING PAYAN 24 Apr 2013 1334 ------- ------- ------- ------- -- Carol AnnR ERIN REDDING 04/24 [facility]) [facility]) OUTPATIENT [id number] Notes Entered by: KSENIA LOPEZ 14 May 2013 1336 ------- ------- ------- ------- -- KSENIA GIBSON 05/14 Released w/o Limitations [employer]([facility]) [employer](Opt ometry) OUTPATIENT [id number] GEE BURNS 05/30 Released w/o Limitations [employer] [facility] [employer](O ptometr y) [facility] OUTPATIENT [id number] 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 10/10 Released w/o Limitations [facility] OUTPATIENT [id number] 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 11/22 Released w/o Limitations Theater Facilit y [facility]) OUTPATIENT [id number] Notes Entered by: MITA MACIEL 04 Dec 2013 0828 ------- ------- ------- ------- -- Occupat ional Health Exam/Au RUBIO Del Angel 12/04 Released w/o Limitations [facility](F light Medicin e) [facility]) OUTPATIENT [id number] Notes Entered by: KSENIA LOPEZ 05 Dec 2013 0911 ------- ------- ------- ------- -- KSENIA GIBSON 12/05 Released w/o Limitations [facility]) [facility]) OUTPATIENT [id number] Notes Entered by: LELE DE LA GARZA 09 Jan 2014 1245 ------- ------- ------- ------- -- Return from [facility] 01/09 Released w/o Limitations [facility]) [facility]) OUTPATIENT [id number] PRP LEONEL MURPHY 01/24 Released w/o Limitations [facility]) [facility]) OUTPATIENT [id number] KEITH RICKETTS 02/06 Released w/o Limitations [facility]) [facility]) OUTPATIENT [id number] f/u KEITH MCINTYRE 02/18 Released w/o Limitations [facility]) [facility]) OUTPATIENT [id number] Notes Entered by: KSENIA LOPEZ 18 Mar 2014 1225 ------- ------- ------- ------- -- [facility] KSENIA LOPEZ 03/18 Released w/o Limitations [facility]) [facility]) TELE CONSULT [id number] Notes Entered by: CARMELITA TORO 18 Apr 2014 0821 ------- ------- ------- ------- -- 24 HR ACUTE KEITH MCINTYRE 04/18 [facility]) [facility]) OUTPATIENT [id number] Notes Entered by: DAVIDE GAONA 24 Apr 2014 1133 ------- ------- ------- ------- -- PER KEITH PEARSON 04/24 Released w/o Limitations [facility]) [facility]) OUTPATIENT [id number] Notes Entered by: FUENTES WOOD 14 Jun 2014 0934 ------- ------- ------- ------- -- KEITH BECKMAN 06/14 Released w/o Limitations [facility]) [facility](Opt ometry) OUTPATIENT [id number] EYE EXAM RICH ELENA 08/08 Released w/o Limitations [facility](O ptometr y) [facility]) TELE CONSULT [id number] Notes Entered by: ERIN CARPENTER 13 Sep 2014 0916 ------- ------- ------- ------- -- Missed ERIN PIMENTEL Moreno 09/13 [facility](P [facility]) [facility]([facility]) OUTPATIENT [id number] Notes Entered by: DAVIDE GAONA 08 Oct 2014 1401 ------- ------- ------- ------- -- PERKEITH POWER 10/08 Released w/o Limitations [facility] [facility](P [facility]) [facility] [place] [place] OUTPATIENT [id number] Pre-Op, JUANI Chang 10/15 Released w/o Limitations [facility] [place] [place] [place] [place] OUTPATIENT [id number] CRS Briefin g/HUANG Rivera 10/16 Released w/o Limitations [facility] [place] [place] [place] [place] OUTPATIENT [id number] CRS Surgery /HUANG Rivera 10/17 Released w/o Limitations [facility] [place] [place] [place] [place] OUTPATIENT [id number] 4 day f/u, JUANI Chang 10/21 Released w/o Limitations [facility] [place] [place](Opt ometry) OUTPATIENT [id number] CRS 1 week GEE HARRIS 10/25 Released w/o Limitations [employer](O ptometr y) [employer](Opt ometry) OUTPATIENT [id number] 1 mo crs f/u GEE HARRIS 11/15 Released w/o Limitations [employer](O ptometr y) [facility]) OUTPATIENT [id number] Notes Entered by: AMARA GONZALEZ 20 Nov 2014 1103 ------- ------- ------- ------- -- leg pain KEITH MCINTYRE 11/20 Released w/o Limitations [facility](P [facility]) [facility](Opt ometry) OUTPATIENT [id number] 2 mo crs f/u STEVENGEE LOPEZ 01/02 Released w/o Limitations [employer](O ptometr y) [employer](Opt ometry) OUTPATIENT [id number] 3 mo crs f/u STEVENGEE LOPEZ 01/21 Released w/o Limitations [employer](O ptometr y) [facility] OUTPATIENT [id number] nasal congest ion KEITH MCINTYRE 02/26 Released w/o Limitations [facility]) [facility]) OUTPATIENT [id number] Notes Entered by: JUAN FRANCISCO NAZARIO 05 Mar 2015 1215 ------- ------- ------- ------- -- WALK IN PRP PHA EMERALD NAZARIO 03/05 Released w/o Limitations [facility]) [facility]) OUTPATIENT [id number] Notes Entered by: KSENIA LOPEZ 05 Mar 2015 1302 ------- ------- ------- ------- -- KSENIA GIBSON 03/05 Released w/o Limitations [facility]) [facility] OUTPATIENT [id number] req fit and clear KEITH MCINTYRE 03/12 Released w/o Limitations [facility]) [facility] OUTPATIENT [id number] Notes Entered by: JAUN QUINTANA 17 Apr 2015 1257 ------- ------- ------- ------- -- Cold SX's KEITH MCINTYRE 04/17 Released w/o Limitations [employer]([facility]) [employer](Phy sical Therapy) OUTPATIENT [id number] leg pain OLIVIA STAPLES S 04/18 Released w/o Limitations [employer](P hysical Therapy ) [employer](Opt ometry) OUTPATIENT [id number] 6 month CRS f/u KASSYRICH B 04/21 Released w/o Limitations [employer](O ptometr y) [employer](Phy sical Therapy) OUTPATIENT [id number] OLIVIA STAPLES S 05/19 Released w/o Limitations [employer](P hysical Therapy ) [employer]([facility]) OUTPATIENT [id number] per KEITH Lane 05/21 Released w/o Limitations [employer]([facility]) [facility] OUTPATIENT [id number] Notes Entered by: AMARA GONZALEZ 27 Jun 2015 1248 ------- ------- ------- ------- -- rash KEITH MCINTYRE 06/26 Released w/o Limitations [employer]([facility]) [facility]) OUTPATIENT [id number] Notes Entered by: YAMINI BOWENS 11 Jul 2015 1402 ------- ------- ------- ------- -- OCCUPAT [facility]/ AUDIOGR AM KALEY GARCIA 07/10 Released w/o Limitations [employer]([facility]) [employer]) OUTPATIENT [id number] LILIBETH SINHA 09/28 Released w/o Limitations [employer]([facility]) [employer](Opt ometry) OUTPATIENT [id number] 12 mo crs f/u KASSY NUSRATSHANTE B 10/26 Released w/o Limitations [employer](O ptometr y) [employer]) OUTPATIENT [id number] Notes Entered by: JOHAN MACKEY 22 Dec 2015 1051 ------- ------- ------- ------- -- BACK PAIN LILIBETH TOMPKINS 12/21 Released w/o Limitations [facility] TELE CONSULT [id number] Notes Entered by: SANA ANGELES 06 Jan 2016 1444 ------- ------- ------- ------- -- Network Results -PODIAT RY-8Jul y16-See artifac ts & images LILIBETH TOMPKINS 01/05 [facility]) [facility] TELE CONSULT [id number] Notes Entered by: XOCHILT WILLIAMSON 04 Feb 2016 1425 ------- ------- ------- ------- -- Self inspect ion LATANYA WILLIAMSON 02/03 [facility] TELE CONSULT [id number] Notes Entered by: Kristen TOMPKINS HER 05 Feb 2016 0934 ------- ------- ------- ------- -- TB concern s LILIBETH TOMPKINS 02/04 [facility]) [facility] TELE CONSULT [id number] Notes Entered by: Kristen TOMPKINS HER 24 Feb 2016 1236 ------- ------- ------- ------- -- Discuss ion with member LILIBETH TOMPKINS 02/23 [facility]) [facility] OUTPATIENT [id number] Notes Entered by: YANIRA HULL 18 Mar 2016 1052 ------- ------- ------- ------- -- WALK IN ANKLE / JOINT PAIN LILIBETH TOMPKINSI 03/18 Released with Work/Duty Limitations [facility]) [facility] OUTPATIENT [id number] Notes Entered by: STEVEN DE LA CRUZ 04 May 2016 1129 ------- ------- ------- ------- -- TRISERV ICE RONNIE [facility] 05/04 Released w/o Limitations [facility]) OUTPATIENT [id number] Maryam HASSAN per [facility] liz [facility] 05/05 Released w/o Limitations [facility]) [facility] TELE CONSULT [id number] Notes Entered by: MONICA ALAMO 03 Jun 2016 141 ------- ------- ------- ------- -- Network results - sleep study -look in artifac ts and images LILIBETH TOMPKINSI 06/03 [facility]) [facility] OUTPATIENT [id number] Notes Entered by: YANIRA HULL 09 Jun 2016 0707 ------- ------- ------- ------- -- walk in per LILIBETH Olivas 06/09 Released w/o Limitations [facility]) [facility] TELE CONSULT [id number] Notes Entered by: Kristen TOMPKINS 25 Jun 2016 1047 ------- ------- ------- ------- -- DAWG LILIBETH LeaI 06/25 [facility]) [facility]) TELE CONSULT [id number] Notes Entered by: EULALIA DUNHAM 17 Aug 2016 0944 ------- ------- ------- ------- -- [facility] [place] Jennifer Goode ce Review EULALIA DUNHAM 08/17 Released w/o Limitations [facility](B [facility] Oper[facility]al Medicin e Clin) [facility] OUTPATIENT [id number] PRP-sle ep concern s/pain DONALD PATEL 08/27 Released w/o Limitations [facility]) [facility] TELE CONSULT [id number] Notes Entered by: MARIBEL PATEL 30 Aug 2016 0736 ------- ------- ------- ------- -- Xray results DONALD PATEL 08/30 [facility]) [facility]) OUTPATIENT [id number] Urinary Pain/Er ectile Disfunc tion DONALD PATEL 09/10 Released w/o Limitations [address] [place] [address] Group([facility]) [facility] TELE CONSULT [id number] Notes Entered by: MARIBEL PATEL 17 Sep 2016 1052 ------- ------- ------- ------- -- Lab results DONALD PATEL 09/17 [facility]) [facility] TELE CONSULT [id number] Notes Entered by: MARIBEL PATEL 21 Sep 2016 1207 ------- ------- ------- ------- -- Medicat ion renewal DONALD PATEL 09/21 [facility]) [facility] OUTPATIENT [id number] Notes Entered by: MAXIMO HUGHES 22 Oct 2016 0951 ------- ------- ------- ------- -- Walk In for insect bite DONALD PATEL 10/22 Released with Work/Duty Limitations [facility]) [facility]) TELE CONSULT [id number] Notes Entered by: SANA ANGELES 10 Nov 2016 1049 ------- ------- ------- ------- -- Network Results --MRI LT ANKLE-- 11/05/16 --See artifac ts & images. DONALD PATEL 11/10 [facility]) [facility]) TELE CONSULT [id number] Notes Entered by: MAO HILLMAN 16 Nov 2016 1527 ------- ------- ------- ------- -- NETWORK RESULTS --PODIA TRY --JUL 17 -- SEE ARTIFAC TS & IMAGES DONALD PATEL 11/16 [facility](P [facility]) [facility]) OUTPATIENT [id number] CONSULT DONALD SU 11/19 Released with Work/Duty Limitations [facility](P er Rel [facility]g [facility]) [facility](Inc orrect [facility](Inac tive)) OUTPATIENT [id number] Notes Entered by: GARRET FREEMAN 19 Nov 2016 0943 ------- ------- ------- ------- -- AUDIOGR AM ANEUDY FREEMAN 11/19 Released w/o Limitations [facility](I ncorrec t [facility](In active) ) [facility]) TELE CONSULT [id number] Notes Entered by: ADRIENNE MENJIVAR 26 Nov 2016 0939 ------- ------- ------- ------- -- Network Results -XR Left Hand 4aug17 See Artifac ts and Images DONALD PATEL 11/26 [facility]) [facility](Inc orrect [facility](Inac tive)) OUTPATIENT [id number] Notes Entered by: CRISTAL CAMARGO 06 Dec 2016 1030 ------- ------- ------- ------- -- AUDIOGR AM FOLLOW- UP LEATHA SALDAÑA 12/06 Released w/o Limitations [facility](I ncorrec t [facility](In active) ) [facility]) TELE CONSULT [id number] Notes Entered by: MARIBEL PATEL 15 Dec 2016 0952 ------- ------- ------- ------- -- DONALD NOVAK 12/15 [facility]) [facility] OUTPATIENT [id number] WALK IN PER CAPT DONALD GARVIN 12/28 Released w/o Limitations [facility]) [facility] OUTPATIENT [id number] PRP:F/U DONALD PATEL 02/04 Released w/o Limitations [facility]) [facility] OUTPATIENT [id number] Wart Removal -Left Foot DONALD PATEL 02/25 Released w/o Limitations [facility]) [facility](Phy sical Therapy) OUTPATIENT [id number] L Ankle ROM SANAM LOUIS 03/17 Released w/o Limitations [facility](P hysical Therapy ) [facility] OUTPATIENT [id number] Need more migrain e medicin e/wart removal DONALD PATEL 05/02 Released with Work/Duty Limitations [facility]) [facility] OUTPATIENT [id number] Medicat ion Follow Up DONALD PATEL 05/26 Released with Work/Duty Limitations [employer]([facility]) [employer]([facility]) OUTPATIENT [id number] Medicat ion Follow Up DONALD PATEL 08/31 Released w/o Limitations [employer]([facility]) [employer](C Team B-Non AD) OUTPATIENT [id number] MEDICAT ION REFILL RADHA KATHLEEN 01/06 Released w/o Limitations [employer](F Team B-Non AD) [employer](Fli ght Medicine) OUTPATIENT [id number] 4 naf ESTEFANY JEFF Breanna 03/16 Released w/o Limitations [employer](F light Medicin e) [place] [facility] OFFICE O/P EST MOD 30-39 MIN [id number] Diagnos is: ICD-10- CM F33.9 Major depress mi disorde r, recurre nt, unspeci fied
JENY CESAR F 02/23 [facility] [place] [facility] Outpatient Encounter [id number] 04/23 [facility] [place] [facility] Outpatient Encounter [id number] 05/07 [facility] [place] [facility] OFF[facility] O/P EST MOD 30-39 MIN [id number] Diagnos is: ICD-10- CM F43.12 Post-tr aumatic stress disorde r, chronic
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
LYNETTE WALTERS 08/16 [facility] [place] [facility] Outpatient Encounter [id number] 08/16 [facility] [place] [facility] Outpatient Encounter [id number] 10/22 [facility] [place] [facility] Outpatient Encounter [id number] 12/27 [facility] [place] [facility] OFF[facility] O/P EST HI 40-54 MIN [id number] Diagnos is: ICD-10- CM F33.9 Major depress mi disorde r, recurre nt, unspeci fied
JENY CESAR 12/27 [facility] [place] [facility] Outpatient Encounter [id number] RAQUEL MORRISON 04/20 [facility] [place] [facility] O/P EST MOD 30 MIN [id number] Diagnos is: ICD-10- CM F43.12 Post-tr aumatic stress disorde r, chronic
FREDY CHESTER T [facility] [place] [facility] Outpatient Encounter [id number] 07/18 [facility] [place] [facility] OFF[facility] O/P EST MOD 30 MIN [id number] Diagnos is: ICD-10- CM F43.12 Post-tr aumatic stress disorde r, chronic
FREDY CHESTER T 07/24 [facility] Procedures Combined list of: 1) Procedures from Department of [facility] Affairs facilities going back up to thelast 18 months, not all [place] non-surgical procedures are included; 2) All procedures from the Department of Defense facilities. Procedure Procedure Type Code Date Perfomer Comments Sourkristen e Case Management, each 15 minutes SKYLA HARDY Diagnostic Cystoscopy Diagnostic Cystoscopy 65678 DONALD ROLNAD Measuremt Post-Voiding Resid Urine, Bladder Capacity Ultrasd Measuremt Post-Voiding Resid Urine, Bladder Capacity Ultrasd 46240 Vivi GARCÍADONALD [facility] Psychometric Neuropsych Testing Battery Admin By Computer Psychometric Neuropsych Testing Battery Admin By Computer 23016 011 JENNY RAMOS [facility] Psychometric Neuropsych Testing Battery Admin By Computer Psychometric Neuropsych Testing Battery Admin By Computer 46970 010 KARI MCDERMOTT [facility] Psychiatric Diagnostic Evaluation Comprehensive Examination Psychiatric Diagnostic Evaluation Comprehensive Examination 24130 010 JENNY RAMOS [facility] Audiometry Group Testing Audiometry Group Testing 73090 007 FRANCY HEART [facility] Clinical Social Work Individual Outpatient Counseling 45 Minutes Clinical Social Work Individual Outpatient Counseling 45 Minutes 62183 006 MIRTA TEMO [facility] Clinical Social Work Individual Outpatient Counseling 45 Minutes Clinical Social Work Individual Outpatient Counseling 45 Minutes 50670 006 BRENT KIRBY [facility] Clinical Social Work Individual Outpatient Counseling 30 Minutes Clinical Social Work Individual Outpatient Counseling 30 Minutes 60825 006 MARY CARMEN [facility] Threshold Audiogram (Pure Tone) Threshold Audiogram (Pure Tone) 36603 006 JOHAN SILVA [facility] Determination Of Refractive State Determination Of Refractive State 07874 005 OMAR LEROY [facility] Ophthalmological New Patient Start Comprehensive Care Ophthalmological New Patient Start Comprehensive Care 99236 005 OMAR LEROY [facility] Excision Of Lesion Face Benign .6 to 1cm 005 CLAUDIA PHILLIPS [facility] Psychiatric Diagnostic Evaluation Comprehensive Examination Psychiatric Diagnostic Evaluation Comprehensive Examination 73193 005 DANIEL CHANG [facility] Psychiatric Diagnostic Evaluation Review of Records and Reports Psychiatric Diagnostic Evaluation Review of Records and Reports 17330 005 DANIEL CHANG [facility] Psychometric Emotional / Behavioral A e ment Psychometric Emotional / Behavioral Assessment 20720 018 JUWAN AZAR Psychotherapy Individual Approximately 60 Minutes Psychotherapy Individual Approximately 60 Minutes 62742 018 JUWAN AZAR Psychometric Emotional / Behavioral A e ment Psychometric Emotional / Behavioral Assessment 61915 018 JUWAN AZAR Psychiatric Diagnostic Evaluation Comprehensive Examination Psychiatric Diagnostic Evaluation Comprehensive Examination 33521 018 JUWAN AZAR Psychometric Emotional / Behavioral A e ment Psychometric Emotional / Behavioral Assessment 04421 018 KACY AZARSA Derik [facility] Psychometric Neuropsych Testing Battery Admin By Computer Psychometric Neuropsych Testing Battery Admin By Computer 57471 018 JUWAN AZAR Psychotherapy Individual Approximately 60 Minutes Psychotherapy Individual Approximately 60 Minutes 22300 018 DOE JUWAN [facility] Physical Therapy Service Evaluation Low Complexity Physical Therapy Service Evaluation Low Complexity 41276 017 SANAM LOUIS Paring / Curettage Of Benign Hyperkeratotic Lesion, Single Paring / Curettage Of Benign Hyperkeratotic Lesion, Single 61631 017 DONALD PATEL Destruction Of Flat Warts By Cryosurgery Up To 14 Lesions Destruction Of Flat Warts By Cryosurgery Up To 14 Lesions 92079 017 DONALD PATEL Psychiatric Therapy Preparation of Psychiatric Status Report Psychiatric Therapy Preparation of Psychiatric Status Report 33602 017 JERRY RAMAN [facility] Psychometric Emotional / Behavioral A e ment Psychometric Emotional / Behavioral Assessment 95591 016 SUSIE WALKER Psychotherapy Indiv Approx 45 Min W/ Medical Evaluation & Management 016 SUSIE WALKER Psychotherapy Indiv Approx 45 Min W/ Medical Evaluation & Management 016 JESUS HAHN Psychometric Emotional / Behavioral A e ment Psychometric Emotional / Behavioral Assessment 93912 016 JESUS HAHN Determination Of Refractive State Determination Of Refractive State 72978 016 RICH ELENA Ophthalmological Prior Patient Start Comprehensive Care Ophthalmological Prior Patient Start Comprehensive Care 98742 016 RICH ELENA Psychometric Emotional / Behavioral A e ment Psychometric Emotional / Behavioral Assessment 19232 016 JERRY RAMAN Psychotherapy Individual Approximately 60 Minutes 016 JERRY RAMAN Psychometric Emotional / Behavioral A e ment Psychometric Emotional / Behavioral Assessment 46753 016 JERRY RAMAN Psychotherapy Individual Approximately 60 Minutes 016 JERRY RAMAN Psychotherapy Indiv Approx 45 Min W/ Medical Evaluation & Management 016 JESUS HAHN Psychometric Emotional / Behavioral A e ment Psychometric Emotional / Behavioral Assessment 56859 JESUS HAHN [facility] Psychometric Emotional / Behavioral A e ment Psychometric Emotional / Behavioral Assessment 45188 JERRY RAMAN Psychotherapy Individual Approximately 60 Minutes JERRY RAMAN Psychotherapy Individual Approx 30 Min W/ Medical Evaluation & Management JESUS HAHN [facility] Physical Therapy: ___ Se ion Segments, 15 Minutes Each Physical Therapy: ___ Session Segments, 15 Minutes Each 37422 OLIVIA STAPLES S [facility] Physical Therapy Service Re-Evaluation Physical Therapy Service Re-Evaluation 69297 OLIVIA STAPLES S [facility] Psychotherapy Individual Approximately 60 Minutes JERRY RAMAN Psychotherapy Individual Approximately 45 Minutes JERRY RAMAN Postoperative Visit, Without Charge Postoperative Visit, Without Charge 84563 RICH ELENA [facility] Foot, arch support, removable, premolded, longitudinal, each OLIVIA STAPLES L420 M sz 13 [facility] Physical Therapy Education Orthotics Training EDILMA STAPLESIN S [facility] Physical Therapy: ___ Se ion Segments, 15 Minutes Each Physical Therapy: ___ Session Segments, 15 Minutes Each 30183 EDILMA STAPLESIN S [facility] Physical Therapy Service Evaluation Physical Therapy Service Evaluation 10271 EDILMA STAPLESIN S [facility] Psychotherapy Individual Approx 30 Min W/ Medical Evaluation & Management JESUS HAHN [facility] Non-Physician Phone Call To Pt/Provider Intermed (11-20 min) Non-Physician Phone Call To Pt/Provider Intermed (11-20 min) 21038 JERRY RAMAN Psychotherapy Individual Approximately 60 Minutes JERRY RAMAN Psychotherapy Individual Approximately 60 Minutes JERRY RAMAN Psychotherapy Individual Approximately 60 Minutes JERRY RAMAN Postoperative Visit, Without Charge Postoperative Visit, Without Charge 55053 GEE HARRIS [facility] Psychotherapy Individual Approximately 60 Minutes JERRY RAMAN Psychotherapy Individual Approximately 60 Minutes 015 JERRY RAMAN Psychotherapy Individual Approximately 60 Minutes 015 JERRY RAMAN Postoperative Visit, Without Charge Postoperative Visit, Without Charge 93675 015 GEE HARRIS Psychotherapy Individual Approximately 60 Minutes 015 JERRY RAMAN Psychotherapy With Medication Management Psychotherapy With Medication Management 33298 015 HUANGSHANTELKANE JESUS Moreno [facility] Psychotherapy Individual Approximately 60 Minutes 015 JERRY RAMAN Psychotherapy Individual Approximately 60 Minutes 015 JERRY RAMAN Psychotherapy Individual Approximately 60 Minutes 015 JERRY RAMAN Postoperative Visit, Without Charge Postoperative Visit, Without Charge 15235 015 GEE HARRIS Postoperative Visit, Without Charge Postoperative Visit, Without Charge 94006 015 GEE HARRIS Postoperative Visit, Without Charge Postoperative Visit, Without Charge 75170 015 JUANI GAMBOA Photorefractive keratectomy (PRK) 015 SOLIS ORTIZ [facility] [employer]vised [employer] Educational Services Physician Supervised Group Educational Services 67123 015 SOLIS ORTIZ Scanning Computerized Ophthalmic Diagnostic Imaging Optic Nerve Scanning Computerized Ophthalmic Diagnostic Imaging Optic Nerve 02254 015 JUANI GAMBOA Corneal Pachymetry Corneal Pachymetry 73072 10/10 015 JUANI GAMBOA Scanning Computerized Ophthalmic Diagnostic Imaging Anterior Segment, Unilateral Scanning Computerized Ophthalmic Diagnostic Imaging Anterior Segment, Unilateral 88332 015 JUANI GAMBOA External Ocular Photography External Ocular Photography 82280 015 JUANI GAMBOA Computerized Corneal Topography Computerized Corneal Topography 68265 015 JUANI GAMBOA Determination Of Refractive State Determination Of Refractive State 85780 015 JUANI GAMBOA Ophthalmological New Patient Start Comprehensive Care Ophthalmological New Patient Start Comprehensive Care 11669 015 JUANI GAMBOA Psychotherapy Individual Approximately 60 Minutes 015 JERRY RAMAN Psychiatric Diagnostic Evaluation Psychiatric Diagnostic Evaluation 43423 015 JERRY RAMAN Non-Physician Phone Call To Pt/Provider Intermed (11-20 min) Non-Physician Phone Call To Pt/Provider Intermed (11-20 min) 52708 015 ROGELIO COOK Ophthalmological Prior Patient Start Comprehensive Care Ophthalmological Prior Patient Start Comprehensive Care 87171 015 RICH ELENA Corneal Pachymetry Corneal Pachymetry 43421 015 RICH ELENA Computerized Corneal Topography Computerized Corneal Topography 33931 015 RICH ELENA Determination Of Refractive State Determination Of Refractive State 46491 015 RICH ELENA Psychotherapy Individual Approximately 60 Minutes 014 MAYRA ALFARO Psychotherapy Individual Approximately 30 Minutes 014 JESUS HAHN Psychotherapy With Medication Management Psychotherapy With Medication Management [id number] JESUS HAHN Psychiatric Diagnostic Evaluation Initial Psychiatric Diagnostic Evaluation Initial [id number] MAYRA ALFARO Spectacles Services Fitting Monofocal Except For Aphakia Spectacles Services Fitting Monofocal Except For Aphakia [id number] GEE HARRIS Determination Of Refractive State Determination Of Refractive State [id number] GEE HARRIS Ophthalmological New Patient Start Comprehensive Care Ophthalmological New Patient Start Comprehensive Care [id number] GEE HARRIS Psychotherapy With Medication Management Psychotherapy With Medication Management [id number] JESUS HAHN Psychologic Testing And Report Administered By Computer Psychologic Testing And Report Administered By Computer [id number] TEENA STANLEY Psychotherapy With Medication Management Psychotherapy With Medication Management [id number] JESUS HAHN Psychiatric Diagnostic Evaluation Review of Records and Reports Psychiatric Diagnostic Evaluation Review of Records and Reports [id number] DIMAS SUERO Psychotherapy Individual Approximately 60 Minutes 013 DIMAS SUERO Psychotherapy Individual Approximately 60 Minutes 013 DIMAS SUERO Psychotherapy Individual Approximately 60 Minutes 013 GABYAceDIMAS Tyson Psychotherapy With Medication Management Psychotherapy With Medication Management [id number] HUANGMARIZA JESUS Mayer Tyson Psychiatric Diagnostic Evaluation Comprehensive Examination Psychiatric Diagnostic Evaluation Comprehensive Examination [id number] DIMAS SUERO Psychotherapy Individual Approx 30 Min W/ Medical Evaluation & Management Psychotherapy Individual Approx 30 Min W/ Medical Evaluation & Management [id number] JEANETTENICK JESUS Mayer Tyson Psychotherapy With Medication Management Psychotherapy With Medication Management [id number] SELMA JESUS Mayer Tyson Psychologic Testing And Report Administered By Computer Psychologic Testing And Report Administered By Computer [id number] TEENA STANLEY [facility] Psychiatric Diagnostic Evaluation Comprehensive Examination Psychiatric Diagnostic Evaluation Comprehensive Examination [id number] SELMA JESUS Mayer Tyson Psychiatric Diagnostic Evaluation Comprehensive Examination Psychiatric Diagnostic Evaluation Comprehensive Examination [id number] JENNA HECTOR [facility] Fitting Monofocal Except For Aphakia [facility] Services Fitting Monofocal Except For Aphakia [id number] [id number] DONALD YOUSIF 1 FOC, 1 GMI, 1 S91A. PD 59 [facility] Determination Of Refractive State Determination Of Refractive State [id number] [id number] DONALD YOUSIF Ophthalmological New Patient Start Comprehensive Care Ophthalmological New Patient Start Comprehensive Care [id number] [id number] DONALD YOUSIF Coordinated care fee, maintenance rate 011 SKYLA BRUCE Case Management, each 15 minutes 011 SKYLA BRUCE Coordinated care fee, maintenance rate 011 SKYLA BRUCE SCREENING TEST OF VISUAL ACUITY, QUANTITATIVE, BILATERAL [facility] AUDIOMETRIC TESTING OF GROUPS [facility] ANTHRAX VACCINE, FOR SUBCUTANEOUS OR INTRAMUSCULAR USE 007 [facility] POSTOPERATIVE FOLLOW-UP VISIT, NORMALLY INCLUDED IN THE SURGICAL PACKAGE, INDICATE THAT EVALUATION & MANAGEMENT SERVICE WAS PERFORMED DURING A POSTOPERATIVE PERIOD REASON RELATED ORIGINAL PROCEDURE 015 [facility] PHOTOREFRACTIVE KERATECTOMY (PRK) 015 [facility] PHYS/OTH QUALIFIED HEALTH PLASTIC TOOL MAKER QUALIFIED,EDUCATION,TR AIN,LICENSURE/REGULATI ON (WHEN APPLICABLE) EDUC SER RENDERED TO PATS IN A GRP SETTING (EG,,OBESITY,O R DIABETIC INSTRUCT) [facility] SCANNING COMPUTERIZED OPHTHALMIC DIAGNOSTIC IMAGING, POSTERIOR SEGMENT, WITH INTERPRETATION AND REPORT, UNILATERAL OR BILATERAL; OPTIC NERVE [facility] INDIVIDUAL PSYCHOTHERAPY, INSIGHT ORIENTED, BEHAVIOR MODIFYING AND/OR SUPPORTIVE, IN AN OFFICE OR OUTPATIENT FACILITY, APPROXIMATELY 45 TO 50 MINUTES [id number] WITH THE PATIENT [facility] INDIVIDUAL PSYCHOTHERAPY, INSIGHT ORIENTED, BEHAVIOR MODIFYING AND/OR SUPPORTIVE, IN AN OFFICE OR OUTPATIENT FACILITY, APPROXIMATELY 45 TO 50 MINUTES [id number] WITH THE PATIENT DoD INDIVIDUAL PSYCHOTHERAPY, INSIGHT ORIENTED, BEHAVIOR MODIFYING AND/OR SUPPORTIVE, IN AN OFFICE OR OUTPATIENT FACILITY, APPROXIMATELY 20 TO 30 MINUTES [id number] WITH THE PATIENT [facility] PATIENT EDUCATION, NOT OTHERWISE CLASSIFIED, NON-PHYSICIAN PROVIDER, INDIVIDUAL, PER SESSION [facility] PURE TONE AUDIOMETRY (THRESHOLD); AIR ONLY [facility] DETERMINATION OF REFRACTIVE STATE DoD EXCISION, OTHER BENIGN LESION INCLUDING MARGINS, EXCEPT SKIN TAG (UNLESS LISTED ELSEWHERE), FACE, EARS, EYELIDS, NOSE, LIPS, MUCOUS MEMBRANE; EXCISED DIAMETER 0.6 TO 1.0 CM [facility] PSYCHIATRIC DIAGNOSTIC INTERVIEW EXAMINATION [facility] PSYCHIATRIC EVALUATION OF HOSPITAL RECORDS, OTHER PSYCHIATRIC REPORTS, PSYCHOMETRIC AND/OR PROJECTIVE TESTS, AND OTHER ACCUMULATED DATA FOR MEDICALDIAGNOSTIC PURPOSES [facility] MANUAL THERAPY TECHNIQUES (EG, MOBILIZATION/ MANIPULATION, MANUAL LYMPHATIC DRAINAGE, MANUAL TRACTION), 1 OR MORE REGIONS, EACH 15 MINUTES 004 [facility] DETERMINATION OF REFRACTIVE STATE [facility] MEASUREMENT OF POST-VOIDING RESIDUAL URINE AND/OR BLADDER CAPACITY BY ULTRASOUND, NON-IMAGING 011 [facility] BRIEF EMOTIONAL/BEHAVIORAL ASSESSMENT (EG, DEPRESSION INVENTORY, ATTENTION-DEFICIT/HYPE RACTIVITY DISORDER [ADHD] SCALE), WITH SCORING AND DOCUMENTATION, PER STANDARDIZED INSTRUMENT [facility] BRIEF EMOTIONAL/BEHAVIORAL ASSESSMENT (EG, DEPRESSION INVENTORY, ATTENTION-DEFICIT/HYPE RACTIVITY DISORDER [ADHD] SCALE), WITH SCORING AND DOCUMENTATION, PER STANDARDIZED INSTRUMENT [facility] NEUROPSYCHOLOGICAL TESTING (EG, [place] CARD SORTING TEST), ADMINISTERED BY A COMPUTER, WITH QUALIFIED HEALTH PLASTIC TOOL MAKER INTERPRETATION AND REPORT [facility] BRIEF EMOTIONAL/BEHAVIORAL ASSESSMENT (EG, DEPRESSION INVENTORY, ATTENTION-DEFICIT/HYPE RACTIVITY DISORDER [ADHD] SCALE), WITH SCORING AND DOCUMENTATION, PER STANDARDIZED INSTRUMENT [facility] PHYSICAL THERAPY EVALUATION:LOW COMPLEXITY,REQ:HIST W NO PERS FACT &/COMORB THAT IMPACT PLAN OF CARE;CLIN DECIS MAKING OF LOW COMPLEXITY,TYPICALLY,2 0 MIN ARE SPENT [id number] W THE PATIENT &/FAMILY [facility] PARING OR CUTTING OF BENIGN HYPERKERATOTIC LESION (EG, CORN OR CALLUS); SINGLE LESION [facility] PREPARATION OF REPORT OF PATIENT'S PSYCHIATRIC STATUS, HISTORY, TREATMENT, OR PROGRESS (OTHER THAN FOR LEGAL OR CONSULTATIVE PURPOSES) FOR OTHER INDIVIDUALS, AGENCIES, OR INSURANCE CARRIERS [facility] BRIEF EMOTIONAL/BEHAVIORAL ASSESSMENT (EG, DEPRESSION INVENTORY, ATTENTION-DEFICIT/HYPE RACTIVITY DISORDER [ADHD] SCALE), WITH SCORING AND DOCUMENTATION, PER STANDARDIZED INSTRUMENT [facility] PSYCHOTHERAPY, 45 MINUTES WITH PATIENT WHEN PERFORMED WITH AN EVALUATION AND MANAGEMENT SERVICE (LIST SEPARATELY IN ADDITION TO THE CODE FOR PRIMARY PROCEDURE) [facility] DETERMINATION OF REFRACTIVE STATE [facility] BRIEF EMOTIONAL/BEHAVIORAL ASSESSMENT (EG, DEPRESSION INVENTORY, ATTENTION-DEFICIT/HYPE RACTIVITY DISORDER [ADHD] SCALE), WITH SCORING AND DOCUMENTATION, PER STANDARDIZED INSTRUMENT [facility] BRIEF EMOTIONAL/BEHAVIORAL ASSESSMENT (EG, DEPRESSION INVENTORY, ATTENTION-DEFICIT/HYPE RACTIVITY DISORDER [ADHD] SCALE), WITH SCORING AND DOCUMENTATION, PER STANDARDIZED INSTRUMENT [facility] PSYCHOTHERAPY, 45 MINUTES WITH PATIENT WHEN PERFORMED WITH AN EVALUATION AND MANAGEMENT SERVICE (LIST SEPARATELY IN ADDITION TO THE CODE FOR PRIMARY PROCEDURE) [facility] BRIEF EMOTIONAL/BEHAVIORAL ASSESSMENT (EG, DEPRESSION INVENTORY, ATTENTION-DEFICIT/HYPE RACTIVITY DISORDER [ADHD] SCALE), WITH SCORING AND DOCUMENTATION, PER STANDARDIZED INSTRUMENT [facility] PSYCHOTHERAPY, 30 MINUTES WITH PATIENT WHEN PERFORMED WITH AN EVALUATION AND MANAGEMENT SERVICE (LIST SEPARATELY IN ADDITION TO THE CODE FOR PRIMARY PROCEDURE) [facility] THERAPEUTIC PROCEDURE, 1 OR MORE AREAS, EACH 15 MINUTES; THERAPEUTIC EXERCISES TO DEVELOP STRENGTH AND ENDURANCE, RANGE OF MOTION AND FLEXIBILITY [facility] PSYCHOTHERAPY, 60 MINUTES WITH PATIENT DoD PSYCHOTHERAPY, 45 MINUTES WITH PATIENT DoD POSTOPERATIVE FOLLOW-UP VISIT, NORMALLY INCLUDED IN THE SURGICAL PACKAGE, INDICATE THAT EVALUATION & MANAGEMENT SERVICE WAS PERFORMED DURING A POSTOPERATIVE PERIOD REASON RELATED ORIGINAL PROCEDURE DoD FOOT, ARCH SUPPORT, REMOVABLE, PREMOLDED, LONGITUDINAL, EACH DoD PSYCHOTHERAPY, 30 MINUTES WITH PATIENT WHEN PERFORMED WITH AN EVALUATION AND MANAGEMENT SERVICE (LIST SEPARATELY IN ADDITION TO THE CODE FOR PRIMARY PROCEDURE) DoD TELE ASSESS & MGT SRV PROV QUAL NONPHYS HLTH CARE PRO TO EST PAT,PARENT,GUARD NOT ORIG REL ASSESS & MGT SRV PROV W/IN PREV 7 DAYS NOR LEAD ASSESS & MGT SRV/PX W/IN NXT 24H/SOON APT; 11-20 MIN MED DIS DoD PSYCHOTHERAPY, 60 MINUTES WITH PATIENT DoD PSYCHOTHERAPY, 60 MINUTES WITH PATIENT DoD PSYCHOTHERAPY, 60 MINUTES WITH PATIENT DoD POSTOPERATIVE FOLLOW-UP VISIT, NORMALLY INCLUDED IN THE SURGICAL PACKAGE, INDICATE THAT EVALUATION & MANAGEMENT SERVICE WAS PERFORMED DURING A POSTOPERATIVE PERIOD REASON RELATED ORIGINAL PROCEDURE DoD PSYCHOTHERAPY, 60 MINUTES WITH PATIENT DoD PSYCHOTHERAPY, 60 MINUTES WITH PATIENT DoD PSYCHOTHERAPY, 60 MINUTES WITH PATIENT DoD POSTOPERATIVE FOLLOW-UP VISIT, NORMALLY INCLUDED IN THE SURGICAL PACKAGE, INDICATE THAT EVALUATION & MANAGEMENT SERVICE WAS PERFORMED DURING A POSTOPERATIVE PERIOD REASON RELATED ORIGINAL PROCEDURE DoD PSYCHOTHERAPY, 60 MINUTES WITH PATIENT DoD PHARMACOLOGIC MANAGEMENT, INCLUDING PRESCRIPTION AND REVIEW OF MEDICATION, WHEN PERFORMED WITH PSYCHOTHERAPY SERVICES (LIST SEPARATELY IN ADDITION TO THE CODE FOR PRIMARY PROCEDURE) DoD PSYCHOTHERAPY, 60 MINUTES WITH PATIENT DoD PSYCHOTHERAPY, 60 MINUTES WITH PATIENT DoD PSYCHOTHERAPY, 60 MINUTES WITH PATIENT DoD POSTOPERATIVE FOLLOW-UP VISIT, NORMALLY INCLUDED IN THE SURGICAL PACKAGE, INDICATE THAT EVALUATION & MANAGEMENT SERVICE WAS PERFORMED DURING A POSTOPERATIVE PERIOD REASON RELATED ORIGINAL PROCEDURE DoD POSTOPERATIVE FOLLOW-UP VISIT, NORMALLY INCLUDED IN THE SURGICAL PACKAGE, INDICATE THAT EVALUATION & MANAGEMENT SERVICE WAS PERFORMED DURING A POSTOPERATIVE PERIOD REASON RELATED ORIGINAL PROCEDURE DoD PSYCHOTHERAPY, 60 MINUTES WITH PATIENT DoD PSYCHIATRIC DIAGNOSTIC EVALUATION [facility] TELE ASSESS & MGT SRV PROV QUAL NONPHYS HLTH CARE PRO TO EST PAT,PARENT,GUARD NOT ORIG REL ASSESS & MGT SRV PROV W/IN PREV 7 DAYS NOR LEAD ASSESS & MGT SRV/PX W/IN NXT 24H/SOON APT; 11-20 MIN MED DIS [facility] OPHTHALMOLOGICAL SERVICES: MEDICAL EXAMINATION AND EVALUATION, WITH INITIATION OR CONTINUATION OF DIAGNOSTIC AND TREATMENT PROGRAM; COMPREHENSIVE, ESTABLISHED PATIENT, 1 OR MORE VISITS DoD PSYCHOTHERAPY, 60 MINUTES WITH PATIENT DoD PSYCHOTHERAPY, 30 MINUTES WITH PATIENT DoD PSYCHIATRIC DIAGNOSTIC EVALUATION [facility] FITTING OF SPECTACLES, EXCEPT FOR APHAKIA; MONOFOCAL [facility] PHARMACOLOGIC MANAGEMENT, INCLUDING PRESCRIPTION AND REVIEW OF MEDICATION, WHEN PERFORMED WITH PSYCHOTHERAPY SERVICES (LIST SEPARATELY IN ADDITION TO THE CODE FOR PRIMARY PROCEDURE) [facility] PSYCHOLOGICAL TSTING (INCL PSYCHODIAG ASSESSMNT, EMOTITY, INTELLECTUAL ABILITIES, PERSONALITY &PSYCHOPATHOLOGY, EG, MMPI), ADMINISTERED COMPUTER, W QUALIFIED HEALTH PLASTIC TOOL MAKER INTERPRET &RPT [facility] PSYCHIATRIC EVALUATION OF HOSPITAL RECORDS, OTHER PSYCHIATRIC REPORTS, PSYCHOMETRIC AND/OR PROJECTIVE TESTS, AND OTHER ACCUMULATED DATA FOR MEDICALDIAGNOSTIC PURPOSES DoD PSYCHOTHERAPY, 60 MINUTES WITH PATIENT DoD PSYCHOTHERAPY, 60 MINUTES WITH PATIENT DoD PSYCHOTHERAPY, 60 MINUTES WITH PATIENT DoD PHARMACOLOGIC MANAGEMENT, INCLUDING PRESCRIPTION AND REVIEW OF MEDICATION, WHEN PERFORMED WITH PSYCHOTHERAPY SERVICES (LIST SEPARATELY IN ADDITION TO THE CODE FOR PRIMARY PROCEDURE) [facility] PSYCHIATRIC DIAGNOSTIC INTERVIEW EXAMINATION [facility] INDIVIDUAL PSYCHOTHERAPY, INSIGHT ORIENTED, BEHAVIOR MODIFYING AND/OR SUPPORTIVE, IN AN OFFICE OR OUTPATIENT FACILITY, APPROXIMATELY 20 TO 30 MINUTES [id number] W THE PATIENT; W MED EVAL & MGT SER [facility] PHARMACOLOGIC MANAGEMENT, INCLUDING PRESCRIPTION, USE, AND REVIEW OF MEDICATION WITH NO MORE THAN MINIMAL MEDICAL PSYCHOTHERAPY [facility] PSYCHOLOGICAL TSTING (INCL PSYCHODIAG ASSESSMNT, EMOTITY, INTELLECTUAL ABILITIES, PERSONALITY &PSYCHOPATHOLOGY, EG, MMPI), ADMINISTERED COMPUTER, W QUALIFIED HEALTH PLASTIC TOOL MAKER INTERPRET &RPT [facility] PSYCHIATRIC DIAGNOSTIC INTERVIEW EXAMINATION [facility] PSYCHIATRIC DIAGNOSTIC INTERVIEW EXAMINATION [facility] FITTING OF SPECTACLES, EXCEPT FOR APHAKIA; MONOFOCAL [facility] COORDINATED CARE FEE, MAINTENANCE RATE [facility] CASE MANAGEMENT, EACH 15 MINUTES [facility] NEUROPSYCHOLOGICAL TESTING (EG, [place] CARD SORTING TEST), ADMINISTERED BY A COMPUTER, WITH QUALIFIED HEALTH PLASTIC TOOL MAKER INTERPRETATION AND REPORT [facility] INTRODUCTION OF NEEDLE OR INTRACATHETER, VEIN [facility] NEUROPSYCHOLOGICAL TESTING (EG, [place] CARD SORTING TEST), ADMINISTERED BY A COMPUTER, WITH QUALIFIED HEALTH PLASTIC TOOL MAKER INTERPRETATION AND REPORT [facility] PSYCHIATRIC DIAGNOSTIC INTERVIEW EXAMINATION [facility] Social History Combined list of available smoking, tobacco, and other social history from Department of Defense and Veterans Affairs facilities. Social History Type Response Date Comment Sour e Tobacco smoking status NHIS [facility] FORMER USER 12/27/2022 [place] [facility] History of tobacco use [facility] QUIT 1 5 YRS OR MORE 12/27/2022 [facility] History of tobacco use [facility] FORMER USER 02/23/2022 [facility] History of tobacco use [facility] NEVER USED 01/14/2021 [facility] History of tobacco use [facility]-TOBACCO QUIT 5 TO < 15 YRS 06/13/2019 [facility] History of tobacco use [facility] FORMER USER 06/13/2018 [facility] This section is an empty social history section. [facility] Plan of Care List of future care activities from Department of Veterans Affairs facilities. Additional future care activities may be listed in the Assessment and Plan section. Date/Time Care Activity Care Activity Detail Facili ty 08/22/2023 AMBULATORY - NONE AMBULATORY - NONE [facility] 09/19/2023 AMBULATORY - PSYCHIATRY AMBULATORY - PSYC HIATRY [facility]
--- OUTSIDE RECORDS SUMMARY | 2023-08-22 20:36 | XMS_ITS | Encounter Summary ---
Author Name Department of [facility] Organization [facility] Address [address] [place] [address] Selected Encounter This section includes the information on record at MD for the Encounter. Date/Time Encounter Type Encounter Description Reason Provider Source Dec 27, 2022 01:00 PM OFFICE O/P EST HI 40-54 MIN PRIMARY CARE/MEDICINE ICD-10-CM F33.9 Major depressive disorder, recurrent, unspecified JOHN CESAR Derik Encounter Template Text not used by MD Assessments - Encounter Diagnoses This section includes the primary and secondary diagnoses documented for the Encounter. Date/Time Primary/Secondary Diagnosis Diagnosis Name Provider Source Dec 27, 2022 01:53 PM PRIMARY Major depressive disorder, recurrent, unspecified JOHN CESAR [facility] Dec 27, 2022 01:53 PM SECONDARY Allergic rhinitis, unspecified JOHN CESAR [facility] Dec 27, 2022 01:53 PM SECONDARY Congenital pes planus, unspecified foot JOHN CESAR [facility] Dec 27, 2022 01:53 PM SECONDARY Contact with and exposure to other hazardous substances JOHN CESAR [facility] Dec 27, 2022 01:53 PM SECONDARY Male erectile dysfunction, unspecified JOHN CESAR [facility] Dec 27, 2022 01:53 PM SECONDARY Other migraine, not intractable, without status migrainosus JOHN CESAR [facility] Dec 27, 2022 01:53 PM SECONDARY Post-traumatic stress disorder, chronic JOHN CESAR [facility] Dec 27, 2022 01:53 PM SECONDARY Primary osteoarthritis, unspecified site JOHN CESAR [facility] Dec 27, 2022 01:53 PM SECONDARY Syncope and collapse JOHN CESAR [facility] Dec 27, 2022 01:53 PM SECONDARY Tachycardia, unspecified JOHN CESAR [facility] Plan of Treatment: Future Appointments (+ 6 months) and Future Tests (+/- 45 days) The Plan of Treatment section includes future care activities for the patient from [facility] This section includes future appointments and future orders which are active, pending or scheduled. Future Appointments This section includes appointments that were scheduled to occur 6 months from the date of the Encounter, up to a maximum of 20 appointments. The data comes from all [facility]. Appointment Date/Time Appointment Type Appointme nt Facility Name Jun 02, 2023 01:00 PM [facility] Jun 09, 2023 10:15 AM [facility] Active, Pending, and Scheduled Orders This section includes a listing of several types of active, pending, and scheduled orders, including clinic medications orders, diagnostic test orders, procedure orders and consult orders; where the start date of the order is 45 days before the date of the Encounter or 45 days after the date of theEncounter. The data comes from all [facility]. Test Date/Time Test Type Test Details Facility Name Dec 27, 2022 12:00 AM Laboratory - Chemi stry Order OCCULT BLOOD FIT X1 SCREEN STOOL FECES SP ONCE [facility] Vital Signs: All taken on the encounter date This section contains inpatient and outpatient Vital Signs collected on the date of the Encounter. Date/Time Temperature Pulse Blood Pressure Respiratory Rate SP02 Pain Height Weight Body Mass Index Source Dec 27, 2022 12:51 PM 91 /min 127/86 mm[Hg] 16 /min 97 % 0 73 in 233 lb 31 [facility] Social History: Smoking Status (Most current) and Tobacco Use (All prior to encounter date) This section includes the most current, and the historical, smoking and tobacco- related health factors from the MD facility where the Encounter took place. Current Smoking Status This section includes the most current smoking, or tobacco-related health factor, from the MD facility where the Encounter took place. Date/Time Current Smoking Status Comment Mellissa aleman Dec 27, 2022 01:00 PM VA-TOBACCO FORMER USER [facility] Tobacco Use History This section includes a history of the smoking, or tobacco-related health factors, that were collected on or before the date of the Encounter. The data comes from the MD facility where the Encounter took place. Date/Time Smoking Status/Tobacco Use Comment F kala Dec 27, 2022 01:00 PM VA-TOBACCO QUIT 15 YRS OR MORE [facility] Feb 23, 2022 09:30 AM VA-TOBACCO FORMER USER [facility] Feb 23, 2022 09:30 AM VA-TOBACCO QUIT 15 YRS OR MORE [facility] Jan 14, 2021 11:00 AM VA-TOBACCO NEVER USED [facility] Jun 13, 2019 12:54 PM VA-TOBACCO FORMER USER [facility] Jun 13, 2019 12:54 PM VA-TOBACCO QUIT 5 TO < 15 YRS [facility] Jun 13, 2018 08:51 AM VA-TOBACCO FORMER USER [facility] Jun 13, 2018 08:51 AM VA-TOBACCO QUIT 5 TO < 15 YRS [facility] Encounter Notes: All associated encounter notes This section contains the clinical notes associated to the Encounter. Date/Time Encounter Note(s) Provider Source Dec 27, 2022 01:51 PM ADMINISTRATIVE NOTE: LOCAL TITLE: AFTER VISIT SUMMARY NOTE STANDARD TITLE: ADMINISTRATIVE NOTE DICT DATE: DEC 27, 2022@13:51:32 ENTRY DATE: DEC 27, 2022@13:51:32 DICTATED BY: JOHN CESAR EXP COSIGNER: URGENCY: STATUS: COMPLETED The patient was provided with a copy of an after-visit summary at the conclusion of the visit. A copy of the after-visit summary provided to the patient is available in [employer]. SCANNED DOCUMENT SIGNATURE NOT REQUIRED Electronically Filed: 12/27/2022 by: JOHN CESAR MD STAFF Physician JOHN CESAR [facility] Dec 27, 2022 12:52 PM INTERNAL MEDICINE OUTPATIENT NOTE: LOCAL TITLE: MEDICINE CLINIC NURSING NOTE STANDARD TITLE: INTERNAL MEDICINE OUTPATIENT NOTE DATE OF NOTE: DEC 27, 2022@12:52 ENTRY DATE: DEC 27, 2022@12:52:56 AUTHOR: KACEY LEE EXP COSIGNER: URGENCY: STATUS: COMPLETED MEDICINE CLINIC NURSING NOTE Has ADDENDA TYPE OF VISIT: Appointment Check In Type of appointment: In-person appointment REASON FOR VISIT: annual visit ALLERGIES: Patient has answered NKA VITAL SIGNS: Blood Pressure: 127/86 (12/27/2022 12:51) Pulse: 91 (12/27/2022 12:51) Respiration: 16 (12/27/2022 12:51) Temperature: 97.8 F [36.6 C] (02/23/2022 09:28) Weight: 233 lb [105.69 kg] (12/27/2022 12:51) Height: 73 in [185.4 cm] (12/27/2022 12:51) BMI: 30.8 O2 Sat: 97% (12/27/2022 12:51) Pain: 0 (12/27/2022 12:51) PAIN SCREEN: Patient is not having significant pain that they wish to discuss with their provider today. MEDICATION Active Outpatient Medications (including Supplies): BUPROPION HCL 150MG 24HR SA TAB TAKE THREE TABLETS BY ACTIVE MOUTH EVERY MORNING FOR MOOD CARBOXYMETHYLCELLULOSE 1% OPH GEL 0.4ML INSTILL 1 DROP TO ACTIVE BOTH EYES TWICE A DAY FOR EYE IRRITATION CELECOXIB 200MG CAP TAKE ONE CAPSULE BY MOUTH EVERY DAY ACTIVE NEEDED FOR PAIN ESCITALOPRAM OXALATE 5MG TAB TAKE ONE TABLET BY MOUTH AT ACTIVE BEDTIME FOR DEPRESSION FLUTICASONE PROP 50MCG 120D NASAL INHL SPRAY 2 SPRAYS IN ACTIVE EACH NOSTRIL EVERY DAY FOR ALLERGIES LORATADINE 10MG TAB TAKE ONE TABLET BY MOUTH EVERY DAY ACTIVE NEEDED FOR ALLERGIES RIZATRIPTAN 10MG DISINTEGRATE TAB DISSOLVE ONE TABLET IN ACTIVE MOUTH ONCE NEEDED FOR HEADACHES *MAY REPEAT AFTER 2 HOURS IF SYMPTOMS PERSIST Non-VA AMPHETAMINE/DEXTROAMPHETAMINE 30MG TAB 30MG MOUTH ACTIVE EVERY DAY Over the Counter/Herbal Medications: The patient states that they take some outside medications and/or herbals. Tobacco Use Screening: The patient is a former tobacco user. The patient quit fifteen or more years ago. Nursing Annual Screening: Fall History Screen During the past 12 months, have you had any falls? Patient does not report any falls in the past 12 months. MEDICATIONS: Patient is on one of the following medication classes: Antihypertensives, Antidepressants, Antipsychotics, Diuretics, or Controlled substance medication used for pain. FALL RISK ADVICE: Fall Risk Advice provided. Handout entitled Fall Prevention At Home reviewed and given to patient and/or significant other. Script Talk Screen Are you able to read your prescription bottles with your glasses, magnifiers or other aids? Yes or patient not taking any prescriptions. Skin Screen Patient reports any current pressure ulcers, a history of pressure ulcers, or a wound from a pesticide use medical coordinator or Patient is bed-confined or a wheelchair-user or Patient requires assistance to transfer/change position No, Skin Screen is Negative Home Abuse/Violence Screen Is your home free of abuse and violence? Yes MOVE! Program Screen Body Mass Index (BMI)= 30.8 [place]: No data available [place] Hgb A1C: No data available [place] Hgb A1C: No data available Point of Care Hgb A1C: POC HGB A1C____ No Outpatient Nutrition Screen Body Mass Index (BMI)= 30.8 [place]: No data available [place] Hgb A1C: No data available [place] Hgb A1C: No data available Point of Care Hgb A1C: POC HGB A1C____ Is patient's BMI less than 18.5? No Does patient have swallowing, coughing, or chewing problems affecting oral intake? No Has patient experienced unplanned weight loss or gain greater than 10 pounds over the last 2 months? No Is patient's Hgb A1C (Glycosylated Hemoglobin) greater than 9.5? Information not available Is patient receiving Total Parenteral Nutrition (TPN) or Tube Feedings? No Patient Health Education Screen BARRIERS/SPECIAL NEEDS: No barriers identified PREFERRED STYLE OF LEARNING: No preference stated Client Assistive Service (JADE) Screen Does the patient require assistance with outpatient visit? No Influenza Immunization: The patient declines to receive the recommended dose of seasonal influenza vaccine. Immunization: INFLUENZA, UNSPECIFIED FORMULATION Refusal Reason: PATIENT DECISION Patient refuses all immunization(s) in the FLU group Date Documented: 12/27/22 12:54 /siva LEE LPN, LPN Signed: 12/27/2022 12:54 12/27/2022 ADDENDUM STATUS: COMPLETED EDUCATION: PARTICIPANT(s): Patient Hemoccult card provided Printed instructions provided and patient/family able to repeat these instructions accurately. /siva LEE LPN, LPN Signed: 12/27/2022 14:18 KACEY LEE [facility] Dec 27, 2022 08:43 AM INTERNAL MEDICINE NOTE: LOCAL TITLE: MEDICINE CLINIC NOTE STANDARD TITLE: INTERNAL MEDICINE NOTE DATE OF NOTE: DEC 27, 2022@08:43 ENTRY DATE: DEC 27, 2022@08:44 AUTHOR: JOHN CESAR COSIGNER: URGENCY: STATUS: COMPLETED SUBJECT: Annual Visit [facility] MATTHIEU PINTO is a 47 year old MALE here for follow up on medical problems as noted in problem list below. Nurse's note and prior clinic notes reviewed. HPI: Annual visit. Seeing MH at MD, meds changed fairly recently with good response. Has community PCP at [facility]: Cici Hartley DO [address] [place] [address] REcent ED visit and PCP f/u: seen in the [facility] emergency department on 12/03 for evaluation of syncope and tachycardia- rose mary was experiencing heart palpitations at home, smart watch showed HR 160-180s. Laid down, then when couldn't sleep, stood and walked 3 steps before syncope, witnessed by his . In ED, EKG was unremarkable. Troponin was negative. CBC and BMP was unremarkable. Similar episode on 10/26, but this did not lead to syncope. Palpitations lasted for approximately 15 to 20 minutes. Saw his PCP in [place] 12/17, TTE, zio and cards consult ordered. Notes walked dog 3 miles yesterday and no issues; HR never broke 130s. Tried valsava and no response. Some orthostatic hypotension which never happens w exercise. No adderall dose changes recently. Losing weight intentionally, changed diet. BORREGO stable, coming in clusters, uses triptan last line. Waiting on neurophthalmology. REVIEW OF SYSTEMS: ROS negative except for as noted above. MEDICAL HISTORY: Reviewed and updated in problem list. SOCIAL HISTORY: Reviewed in problem list and nurses note. ALLERGIES REVIEWED MEDS: buPROPion (WELLBUTRIN XL) 150 mg Extended-Release tablet Take 3 Tablets by mouth every morning. Total of 450mg daily [START ON 01/03/2023] dextroamphetamine-amphetamine (ADDERALL XR) 30 mg Extended- Release capsule Take 1 Capsule (30 mg) by mouth once daily. 30 Capsule 0 dextroamphetamine-amphetamine (Adderall XR) 30 mg Extended-Release capsule Take 1 Capsule (30 mg) by mouth once daily. 30 Capsule 0 dextroamphetamine-amphetamine (Adderall XR) 30 mg Extended-Release capsule Take 1 Capsule (30 mg) by mouth once daily. 25 Capsule 0 dextroamphetamine-amphetamine (Adderall XR) 30 mg Extended-Release capsule Take 1 Capsule (30 mg) by mouth once daily. 30 Capsule 0 dextroamphetamine-amphetamine (ADDERALL) 5 mg tablet Take 1 Tablet (5 mg) by mouth once daily. As needed in the afternoon 30 Tablet 0 dextroamphetamine-amphetamine (ADDERALL) 5 mg tablet Take 1 Tablet (5 mg) by mouth once daily. 30 Tablet 0 dextroamphetamine-amphetamine (ADDERALL) 5 mg tablet Take 1 Tablet (5 mg) by mouth once daily. As needed in the afternoon 30 Tablet 0 escitalopram oxalate (LEXAPRO) 5 mg tablet Take 1 Tablet (5 mg) by mouth every morning. Rx started by [facility]. 0 fluticasone (50 mcg per actuation) nasal solution (FLONASE) SPRAY 2 SPRAYS IN EACH NOSTRIL EVERY DAY FOR ALLERGIES loratadine (CLARITIN) 10 mg tablet TAKE ONE TABLET BY MOUTH EVERY DAY FOR ALLERGIES meloxicam (MOBIC) 7.5 mg tablet Take 1 Tablet (7.5 mg) by mouth once daily. 30 Tablet 0 methocarbamoL (ROBAXIN) 750 mg tablet Take 1 Tablet (750 mg) by mouth every 6 hours if needed for Muscle Spasm. 30 Tablet 0 omeprazole 20 mg tablet Take 1 Tablet (20 mg) by mouth once daily before a meal. 90 Tablet 3 rizatriptan ([employer]) 10 mg disintegrating tablet 10 mg. No current facility-administered medications for this visit. EXAM: Blood Pressure: 127/86 (12/27/2022 12:51) Pulse: 91 (12/27/2022 12:51) Weight: 233 lb [105.69 kg] (12/27/2022 12:51) Body Mass Index: 30.8 General: Alert, well developed, NAD HEENT: Head normocephalic, sclera anicteric Lungs:Nonlabored respirations, on RA, clear breath sounds, normal effort CV: RRR, S1S2, no murmurs Pulses: distal pulses palpable and symmetric Abdomen: Soft, obese, nontender, nondistended MSK: Normal muscle bulk and tone Extremities: No deformities, warm, dry, no edema Skin: Warm, dry, no visible lesions Neuro: Appropriate, oriented, no abnormal movements, normal gait Psych: Pleasant, cooperative, attentive DATA/LABS REVIEWED: records in [facility] reviewed TSH 0.88 Reviewed recent labs/imaging results with patient ASSESSMENT & PLAN: #TAchycardia #Syncope TTE, zio and cards consult ordered per PCP. Suspect SVT, encourage trial vagal maneuvers, consider f/u w MH here re potential DDI and SE- reviewed together #Dyslipidemia: lipids at [facility] reviewed together #ASCVD 1.8%. Recommended lifestyle changes, planning f/u lipids next year #Depression: Stable, seing MH here, on buproprion/escitalopram. Following w therapist at [facility] too. #GERD: on PPI from [facility] PCP, stable, discussed H2B option #ADHD: stable, on adderall XR from [facility] PCP #ED: on sildenafil PRN, discussed testosterone testing indications/tx #Obesity: great work! working on wt loss/TLC, offered MOVE/gymnastic coach program #Seasonal allergic rhinitis; currently on Flonase, refill loratadine #Migraine BORREGO: rizatriptan 10 mg as needed- refill PRN, discussed trial abortive therapy sooner. #Pes planus: new orthotics PRN #OA: mainly involving the hands; changed to PRN celecoxib. #Health Care Maintenance: Colorectal cancer screening: FIT at 45 - order today AAA Screen N/a DM II (Adults 40-70 + obesity): GLUCOSE w community labs Statin (ASCVD > 7.5%, age 40-75): ASCVD risk <2% Prostate CA: N/A Lung CA N/a Return to clinic [facility] 12-18 months, no labs, comanaged care John Cesar MD MPAS Total time spent on patient care including chart review, JLV review, diagnostic and testing review, patient interview/examination, communicating with consultants, care plan changes, counseling and documentation with patient and/or surrogate was 40+ minutes. Future Appointments: DEC 27, 2022@13:00 Clinic: [facility] Avg Risk Colorectal Cancer Screen: AVERAGE RISK colorectal cancer screening is due based on information available to this clinical reminder FOBT/FIT (Fecal Immunochemical Testing) has been ordered. See order tab for details. Medication Reconciliation: Education Evaluations *Was medication education provided for NEW medications or CHANGES to medications? (including medication name, dose, route, reason for use, and potential side effects). No new medications or medication changes during this encounter. TERATOGENIC MED & CONTRACEPTION REVIEW (Optional)... MEDICATION RECONCILIATION List Given: An updated medication list was provided to the patient/caregiver. Review Done: The medication list shown below was verified for accuracy and it includes all pending medications/active medications/all medications or discontinued within the last 90 days/all remote medications and non-VA medications. If a given category (i.e. remote meds) is not shown, that means that a patient doesn't have a medication(s) in that category. Allergies listed below were also reviewed/updated for accuracy. Allergies/ADR from [facility] may not display in CPRS. Use JLV MRT5 - Allergies/ADRs FACILITY ALLERGY/ADR -------- [facility] REPT EFF [id number] [facility] No Known Allergies Active and Recently Outpatient Medications (including Supplies): Issue Date Status Last Fill Active Outpatient Medications Refills Expiration 1) BUPROPION HCL 150MG 24HR SA TAB Qty: ACTIVE Issu:02-17-22 270 for 90 days Sig: TAKE THREE Refills: 1 Last:11-19-22 TABLETS BY MOUTH EVERY MORNING FOR Expr:02-18-23 MOOD 2) CARBOXYMETHYLCELLULOSE 1% OPH GEL 0.4ML ACTIVE Issu:08-16-22 Qty: 90 for 90 days Sig: INSTILL 1 Refills: 3 Last:08-18-22 DROP TO BOTH EYES TWICE A DAY FOR EYE Expr:08-17-23 IRRITATION 3) CELECOXIB 200MG CAP Qty: 90 for 90 days ACTIVE Issu:02-23-22 Sig: TAKE ONE CAPSULE BY MOUTH EVERY Refills: 2 Last:08-31-22 DAY NEEDED FOR PAIN Expr:02-24-23 4) ESCITALOPRAM OXALATE 5MG TAB Qty: 90 ACTIVE Issu:05-25-22 for 90 days Sig: TAKE ONE TABLET BY Refills: 0 Last:11-19-22 MOUTH AT BEDTIME FOR DEPRESSION Expr:05-26-23 5) FLUTICASONE PROP 50MCG 120D NASAL INHL ACTIVE Issu:02-23-22 Qty: 3 for 90 days Sig: SPRAY 2 Refills: 2 Last:08-31-22 SPRAYS IN EACH NOSTRIL EVERY DAY FOR Expr:02-24-23 ALLERGIES 6) LORATADINE 10MG TAB Qty: 90 for 90 days ACTIVE Issu:02-23-22 Sig: TAKE ONE TABLET BY MOUTH EVERY Refills: 1 Last:11-19-22 DAY NEEDED FOR ALLERGIES Expr:02-24-23 7) RIZATRIPTAN 10MG DISINTEGRATE TAB Qty: ACTIVE Issu:02-24-22 18 for 60 days Sig: DISSOLVE ONE Refills: 4 Last:08-31-22 TABLET IN MOUTH ONCE NEEDED FOR Expr:02-25-23 HEADACHES *MAY REPEAT AFTER 2 HOURS IF SYMPTOMS PERSIST Issue Date Status Last Fill Inactive Outpatient Medications Refills Expiration 1) SILDENAFIL CITRATE 100MG TAB Qty: 9 for Issu:09-16-21 90 days Sig: TAKE ONE-HALF TABLET BY Refills: 1 Last:08-31-22 MOUTH NEEDED - TAKE 1 HOUR BEFORE Expr:09-17-22 ANTICIPATED SEXUAL ACTIVITY--MAXIMUM 4 DOSES FOR 30-DAY SUPPLY. FOR ERECTIONS Start Date Active Non-VA Medications Refills Expiration 1) Non-VA AMPHETAMINE/DEXTROAMPHETAMINE ACTIVE 30MG TAB SiMG MOUTH EVERY DAY 9 Total Medications /es/ JOHN CESAR MD STAFF Physician Signed: 12/27/2022 13:53 JOHN CESAR [facility]
--- OUTSIDE RECORDS SUMMARY | 2023-08-22 20:36 | XMS_ITS | Clinical Summary ---
Author Name Unknown Organization [facility] Address [place], [place] [address] Care Team Providers Care Card Tender Name Role Phone Cici Hartley DO Primary Care Provider [phone] Allergies Active Allergy Reactions Criticality Noted Date Comments Unlisted Allergen (Include Detail In Comments) *Unknown - Childhood Rxn 12/12/2012 Seasonal Medications Medication Sig Dispensed Refills Start Date End Date Status loratadine (CLARITIN) 10 mg tablet Take 10 mg by mouth once daily if needed for Allergy Symptoms. 01/14/2021 Active buPROPion (WELLBUTRIN XL) 150 mg Extended-Release tablet Take 450 mg by mouth once daily in the evening. 04/30/2021 Active fluticasone (50 mcg per actuation) nasal solution (FLONASE) Inhale 2 Sprays into affected nostril(s) once daily if needed (seasonal allergies). 02/23/2022 Active rizatriptan (MAXALT SOFTWARE DEVELOPMENT PROJECT MANAGER) 10 mg disintegrating tablet Take 10 mg by mouth 2 times daily if needed for Migraine (headache). Take doses at least 2 hours apart. 02/24/2022 Active escitalopram oxalate (Lexapro) 10 mg tablet Take 10 mg by mouth once daily in the evening. Active omeprazole (PRILOSEC) 20 mg Delayed-Release capsule Take 20 mg by mouth once daily. Active aspirin chewable 81 mg chewable tabletIndications:SVT (supraventricular tachycardia) (HC) Chew 1 Tablet (81 mg) by mouth once daily with a meal. Take for six weeks post ablation, then discontinue. 06/21/2023 Active dextroamphetamine-amp hetamine (Adderall XR) 20 mg Extended-Release capsuleIndications:At tention deficit hyperactivity disorder (ADHD), combined type Take 1 Capsule (20 mg) by mouth once daily. 14 Capsule 06/28/2023 Active dextroamphetamine-amp hetamine (Adderall XR) 30 mg Extended-Release capsuleIndications:At tention deficit hyperactivity disorder (ADHD), combined type Take 1 Capsule (30 mg) by mouth once daily. 30 Capsule 08/07/2023 09/06/2023 Active dextroamphetamine-amp hetamine (Adderall XR) 30 mg Extended-Release capsuleIndications:At tention deficit hyperactivity disorder (ADHD), combined type Take 1 Capsule (30 mg) by mouth once daily. 30 Capsule 09/06/2023 Active dextroamphetamine-amp hetamine (Adderall XR) 30 mg Extended-Release capsuleIndications:At tention deficit hyperactivity disorder (ADHD), combined type Take 1 Capsule (30 mg) by mouth once daily. 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: 05/15/2021 as expected Episode of recurrent major depressive disorder 1 Mild TBI (traumatic brain injury) 01/07/2020 Overview: 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 Encounters Date Type Department Care Team Description 06/28/2023 12:55 PM CDT Office Visit [facility] [address] [place] [address] Cici Hartley DO Post Procedure (SVT Ablation - check incision ); Medication Management (Discuss restarting Adderall) 06/28/2023 Travel 06/26/2023 Travel 06/20/2023 1:50 PM CDT Anesthesia Event [facility] [address] [place] [address] JossueMatthieuVIRGIE 06/20/2023 11:17 AM CDT - 06/21/2023 11:00 AM CDT Hospital Encounter [facility] [address] [place] [address] eHnny Queen MD SVT (supraventricular tachycardia) (Primary Dx) Discharge Disposition: Home Self Care 06/20/2023 Travel 06/02/2023 9:30 AM PAYROLL MANAGER Office Visit [facility] [address] [facility] [address] [place] [address] Henny Queen MD CV Electrophysiology New (Ref Dr. Knight dx: SVT to discuss options//PCP: Cici Hartley DO) 06/02/2023 Travel 05/31/2023 Travel from Last 3 Months Immunizations Name Administration Dates Next Due AMB Influenza, IIV4 PF (=>6 mos Flulaval,Fluzone Fluarix)(Flu Clinic Only) 02/04/2020 Anthrax Vaccine 05/15/2013, 1,01/10/2008,02/25,08/22/2006,07/19/2006,06/07/2005 COVID-19 vaccine ([email or web address] 30mcg/0.3mL) HARITHA FLEMING 03/26/2021,06/15/2020,05/25/2020 Hepatitis A (Adult) 11/25/1997,01/04/1997 Hepatitis B (Adult) 06/19/1999,12/23/1997,1997 Influenza Virus, Unspecified 01/14/2021, 01/25/2019,12/27/2016,01/21,01/09/2013,09/29/2010 Influenza, IIV4 02/23/2022 Influenza, Whole Virus 02/26/2004 Influenza,LAIV4 Live Intrana patrick (Flumist) 02/03/2015,01/26/2012 Frisian Encephalitis 07/15/2003,06/10/2003,05/12 MMR 01/04/1997 MMR, Unspecified 05/15/2013 Meningococcal Vaccine (Menomune) 12/28/1996 Oral Polio Vaccine 01/04/1997 Rabies Vaccine 07/30/2003,06/10/2003,05/30/2003 Smallpox (Vaccinia) Live [id number] 02/07/2004 TD, UNSPECIFIED 09/10/2016 Td (Age >=7 Years) 09/10/2016,12/28/1996 Tdap 02/23/2022,08/22/2006 Tuberculin (PPD) 10/05/2011, 6,08/02/2003,12/03,10/31/2001,03/07/2000 Typhoid (injectable) 05/15/2013,09/30/19 11,01/10/2008,06/07,10/31/2001 Typhoid Parenteral,Killed 11/19/2003,03/07/2000, 01/15/1998 Yellow Fever 11/29/1997 Family History Medical History Relation Name Comments Seizures Daughter Absence Seizure s Lupus Maternal Aunt Stroke Maternal Grandfather Heart failure Maternal Grandmother Multiple sclerosis Mother Relation Name Status Comments Daughter Father Alive Maternal Aunt Maternal Grandfather Maternal Grandmother Mother Alive Social History Tobacco Use Types Packs/Day Years Used Date Smoking Tobacco: Never Smokeless Tobacco: Never Tobacco Cessation:Counseling Given: Yes Alcohol Use Standard Drinks/Week Comments Not Currently 0 (1 standard drink = 0.6 oz pur e alcohol) PHQ-2 Answer Date Recorded PHQ-2 TOTAL SCORE 4 06/28/2023 Social Connections Answer Date Recorded Frequency of Communication with Friends and Fami ly 4 06/26/2023 Financial Resource Strain Answer Date R ecorded Difficulty of Paying Living Expenses 3 06/26/2023 Difficulty of Paying Living Expenses Not on file 06/26/2023 Food Insecurity Answer Date Recorded Worried About Running Out of Food in the Last Ye ar 1 06/26/2023 Transportation Needs Answer Date Record ed Lack of Transportation (Medical) 1 06/26/2023 Housing Stability Answer Date Recorded Unable to Pay for Housing in the Last Year 1 06/26/2023 Sex and Gender Information Value Date Recorded Sex Assigned at Male 05/20/2021 8:39 PM PAYROLL MANAGER Gender Identity Male 05/20/2021 8:39 PM PAYROLL MANAGER Sexual Orientation Straight 05/20/2021 8: 39 PM PAYROLL MANAGER Obstetrics History Last Filed Vital Signs Vital Sign Reading Time Taken Comments Blood Pressure 126/83 06/28/2023 12:54 PM CDT Pulse 74 06/28/2023 12:54 PM CDT Temperature 36.7 ??C (98 ??F) 06/21/2023 9:20 AM CDT Respiratory Rate 11 06/21/2023 1:01 AM CDT Oxygen Saturation 97% 06/28/2023 12:54 PM CDT Inhaled Oxygen Concentration - - Weight 117.9 kg (260 lb) 06/28/2023 12:54 PM CDT Height 185.4 cm (6' 1) 06/20/2023 1:00 PM CDT Body Mass Index 34.3 06/20/2023 1:00 PM CDT Plan of Treatment Health Maintenance Due Date Last Done Comments HIV for age 15-65 1992 Colonoscopy through age 75 2022 COVID-19 vaccine series ( season) 2022 03/26/2021, 06/15/2020, 05/25/2020 Influenza for age 9-49 12/11/2023 , 01/14/2021, 02/04/2020, Additional history exists BMI (ht and wt on same day) for age 18+ 06/02/2024 06/02/2023, 04/23/2022, 11/17/2021, Additional history exists Depression screening for age 12+ 06/27/2024 06/28/2023, 11/17/2021, 11/21/2020, Additional history exists Lipids for age 45-75 11/17/2026 11/17/2021, 11/22/19 21 Tetanus booster 02/24/2032 02/23/2022, 05/2016, 09/10/2016, Additional history exists Hepatitis C screening for age 18-79 Completed 11/17/2021 Tdap Completed 02/23/2022, 08/22/2006 Pneumococcal series for age 6-64 Aged Out No longer eligible based on patient's age to complete this topic Procedures Procedure Name Priority Date/Time Associated Diagnosis Comments SCAN-CARDIAC STRIP 06/21/2023 9: 49 AM CDT EKG 12 LEAD Early AM 06/21/2023 5:27 AM CDT SCAN-CARDIAC STRIP 06/20/2023 11 :34 PM CDT SCAN-CARDIAC STRIP 06/20/2023 11 :34 PM CDT SCAN-CARDIAC STRIP 06/20/2023 11 :34 PM CDT CV PROCEDURE TO BE PERFORMED Routine 06/20/2023 5:09 PM CDT HCHG ACTIVATED CLOTTING TM CV Timed 06/20/2023 4:50 PM CDT HCHG ACTIVATED CLOTTING TM CV Timed 06/20/2023 4:34 PM CDT HCHG ACTIVATED CLOTTING TM CV Timed 06/20/2023 4:33 PM CDT HCHG ACTIVATED CLOTTING TM CV Timed 06/20/2023 3:08 PM CDT HCHG ACTIVATED CLOTTING TM CV Timed 06/20/2023 2:58 PM CDT EP STUDY /ABLATION Routine 06/20/2023 2: 16 PM CDT EKG 12 LEAD Preop 06/20/2023 1:00 PM CDT CBC W PLT NO DIFF Preop 06/20/2023 12: 54 PM CDT BASIC METABOLIC PANEL Preop 06/20/2023 12:54 PM CDT EKG 12 LEAD Today 06/02/2023 9:07 AM PAYROLL MANAGER PVC's (premature ventricular contractions) ANTI HCV Routine 11/17/2021 10:34 AM CDT Encounter for hepatitis C screening test for low risk patient LIPID PANEL W REFLEX MEASURED LDL Routine 11/17/2021 10:34 AM CDT Screening for lipid disorders from Last 3 Months or Most Recently Relevant to Health Maintenance Results * SCAN-CARDIAC STRIP (06/21/2023 9:49 AM CDT) Scanner OTHER * EKG (06/21/2023 5:27 AM CDT) Only the most recent of3 resultswithin the time period is included. Interpretation Normal sinus rhythm Normal ECG When compared with ECG of 20-JUN-2023 13:00, (Unconfirmed ) Minimal criteria for Anterior infarct are no longer Present BEYOND NOW Ventricular Rate 72 BPM BEYOND NOW Atrial Rate 72 BPM BEYOND NOW P-R Interval 156 ms BEYOND NOW QRS Duration 100 ms BEYOND NOW QT 414 ms BEYOND NOW QTc 453 ms BEYOND NOW P [place] 17 degrees BEYOND NOW R [place] 64 degrees BEYOND NOW T [place] 64 degrees BEYOND NOW 06/21/2023 5:27 AM CDT 06/21/2023 12:55 PM CDT Henny Queen MD EKG ORD BEYOND NOW [place], [place] * SCAN-CARDIAC STRIP (06/20/2023 11:34 PM CDT) Scanner OTHER * SCAN-CARDIAC STRIP (06/20/2023 11:34 PM CDT) Scanner OTHER * SCAN-CARDIAC STRIP (06/20/2023 11:34 PM CDT) Scanner OTHER * EP Procedure to be Performed (06/20/2023 5:09 PM CDT) Narrative Henny Queen MD - 06/20/2023 5:09 PM CDT Henny Queen MD ? 06/20/2023 ??5:[address] [facility] COMPREHENSIVE ELECTROPHYSIOLOGY STUDY AND CATHETER ABLATION OF SUPRAVENTRICULAR TACHYCARDIA ( ??ATRIAL TACHYCARDIA) PROCEDURE NOTE Matthieu Pinto [id number] 06/20/2023 47 y.o. 1975 male Referring Physician: Dr. Cici Hartley DO Area Director Of Home Health Sales/Sawmilling Operator: Henny Queen MD Assistants: None Preoperative Diagnosis: Recurrent supraventricular tachycardia. Postoperative Diagnosis: 1.Status post ablation of ??left atrial tachycardia from lateral mitral annulus. Summary of History : 47 y.o. male with recurrent symptomatic supraventricular tachycardia that has resulted in emergency room visits despite ongoing therapy with ??metoprolol who presents for EP study and ablation of arrhythmia mechanism. ??He has had recurrent narrow complex tachycardia.I discussed the alternatives of treatment for the recurrent supraventricular tachycardia including antiarrhythmic therapy versus ablation and I recommended EP study and ablation for the patient given that this strategy has the potential to actually cure him. After an extensive discussion of the risks, potential benefits and post procedure restrictions with the patient, he gave his informed consent to proceeding. Indications for procedure : 1.Recurrent symptomatic paroxysmal supraventricular tachycardia despite ongoing therapy with atenolol in a patient who prefers ablation therapy over antiarrhythmic therapy. PROCEDURES PERFORMED: 1.Comprehensive electrophysiology study including right atrial pacing and recoding, left atrial( coronary sinus) pacing and recording, right ventricular pacing and recording, His bundle recording and paraHisian pacing. 2. Mapping and ablation of ??atrial tachycardia with the assistance of CARTO- 3 D mapping system 3. Isoproterenol infusion for arrhythmia induction and maintenance. 4. ??Trans- septal puncture. 5. Intracardiac echo to visualize trans-septal puncture and rule out pericardial effusion at the end of the case. CATHETERS USED: 1. ??3.5 mm D/F curve ??Thermocool SMART TOUCH ablation catheter (used as a roving catheter for His bundle recording and later right atrial pacing and recording) . Non irrigated settings used for ablation. 2. 4 pole deflectable Catheter for recording and pacing in the right ventricle. 3. 10 pole DecaNav catheter for coronary sinus pacing and recording. 4. 8 Fr intracardiac echo catheter. SITES RECORDED : 1. Right ventricle 2. Right atrium 3. Coronary sinus. 4. His bundle SITES PACED: 1. Right ventricular apex. 2. Coronary sinus 3. Right atrium 4. His bundle TACHYCARDIAS INDUCED : Atrial tachycardia with distal to proximal activation in the coronary sinus with a cycle length of 330 ms. Map showing successful ablation site: DETAILS OF PROCEDURE: The patient presented to the EP lab in sinus rhythm.After a huddle and time out with all participants present was performed, versed and fentanyl was given for mild conscious sedation and then he was subsequently prepped and draped in the usual sterile fashion. After infiltrating the right groin with 2% lidocaine, A single 7 Fr and two 8Fr sheaths were placed into the right femoral vein using ultrasound guidance and the modified Seldinger technique. Through the venous sheaths, first the decapolar catheter was inserted into the coronary sinus, then a non deflectable Bharti catheter was placed into the right ventricular apex and finally an F curve 4 mm ablation catheter was placed onto His position. The decapolar catheter had excellent capture thresholds as did the right ventricular catheter. Baseline conduction intervals were normal. ??Pacing from the right ventricular apex showed decremental ventricular- atrial (VA) conduction with concentric atrial activation consistent with retrograde conduction up the AV node. ParaHisian pacing was consistent with a ngozi response. ??Programmed atrial pacing demonstrated dual AV ngozi pathways with occasional atypical AV ngozi echoes. On isoproterenol the patient had easily inducible tachycardia. The tachycardia had VA wobble, ??eccentric atrial activation with distal to proximal activation in the coronary sinus consistent with atrial tachycardia. Pacing from the right ventricle dissociated the atrial activation from the right ventricle and occasionally we observed a pseudo- V-A-V response but overall the clinical tachycardia was consistent with atrial tachycardia. ??Via the right femoral vein, left atrial instrumentation was performed with single trans-septal puncture using ICE and the Preface Sheath and Heartspan needle. A single Preface sheath was used for the trans-septal puncture which was performed with the 71 cm Heartspan needle. The left atrial opening pressure was 10 mm Hg. Systemic anticoagulation with intravenous heparin was initiated just prior to the first trans-septal puncture with a target ACT of 350- 400 sec. A [employer]-array multielectrode mapping catheter was used for mapping the pulmonary veins ??in tachycardia and an area or early activation on the lateral mitral annulus just below the base of the appendage was identified. This area was 35 ms pre p wave with a Qs on the unipolar electrogram. Ablation lesions delivered here resulted in acceleration and then termination of tachycardia. Extensive ablation was required before the tachycardia was no longer inducible. We increased the isoproterenol gradually to 16 mcg/ minute and repeat programmed stimulation again showed no ?? inducible tachycardia. He still had dual AV ngozi pathways. ?? Intracardiac echo performed in the EP lab showed no pericardial effusion. ??The catheters were then removed and the sheaths were left in place to be removed in the prep and recovery area. He tolerated the procedure well and there were no complications.The patient was taken to a telemetry monitored bed in stable condition. In Summary: Matthieu Pinto presented to the EP lab were a comprehensive electrophysiology study was performed. He had an easily inducible atrial tachycardia that was mapped and ablated from the lateral mitral annulus via a trans- septal catheterization approach. Tachycardia was no longer inducible with aggressive programmed stimulation on isoproterenol after ablation. ??He has dual antegrade and retrograde AV ngozi pathways. Recommendations: 1. Admit overnight for observation patient can be discharged tomorrow if there is no evidence of complications. 2. ??Sheaths to be pulled once ACT < 200. 3 hours of bed rest. 3. Discontinue metoprolol . 4. Follow up with me in electrophysiology clinic in ??6 months 5. Can resume work without restrictions in one week. 6.. Aspirin 81 mg daily for 6 weeks. Henny Queen MD Cardiac Sawmilling Operator [facility] Henny Queen MD ASSISTANT PROPERTY MANAGER OR D * (ABNORMAL) ACTIVATED CLOTTING TIME [id number] ACT (06/20/2023 4:50 PM CDT) Only the most recent of5 resultswithin the time period is included. [facility] ACTIVATED CLOTTING TIME, POCT 352(H) 74 - 125 sec 06/22/2023 4:58 PM CDT [facility] Blood BLOOD SPECIMEN / Unknown 06/20/2023 4:50 PM CDT 06/22/2023 4:58 PM CDT eHnny Queen MD HEMATOLOGY [facility] Nu3 [facility] [address] [place] [address], * EP STUDY /ABLATION (06/20/2023 2:16 PM CDT) Anatomical Region Laterality Modality X-Ray Angiograph y, X-Ray Angiography 06/20/2023 2:16 PM CDT Narrative Transcriptions Henny Queen MD - 06/20/2023 5:59 PM CDT [facility] Electrophysiology Procedure/Implant Report Name: MATTHIEU PINTO Event Date: 06/20/2023 [facility] ID #: [id number] Date: 1975 Gender: Male Age: 47 [facility] #: [id number] Procedure Performed By: HENNY QUEEN [facility] Referring Physician: Dr. Fortino Knight Summary / Conclusions Matthieu Pinto presented to the EP lab were a comprehensiveelectrophysiology study was performed. He had an easily inducible atrialtachycardia that was mapped and ablated from the lateral mitral annulusvia a trans- septal catheterization approach. Tachycardia was no longerinducible with aggressive programmed stimulation on isoproterenol afterablation. He has dual antegrade and retrograde AV ngozi pathways. Recommendations / Plan 1. Admit overnight for observation patient can be discharged tomorrow ifthere is no evidence of complications. 2. Sheaths to be pulled once ACT < 200. 3 hours of bed rest. 3. Discontinue metoprolol . 4. Follow up with me in electrophysiology clinic in 6 months 5. Can resume work without restrictions in one week. 6. Aspirin 81 mg daily for 6 weeks. 7. No contraindications to resuming adderall for treatment of ADHD ifdeemed necessary. Pre-Operative Diagnosis ? SVT (Supraventricular Tachycardia) Post-Operative Diagnosis ? Same as Pre-operative diagnosis Indications ? Same as Pre-operative diagnosis Brief Patient History Matthieu Pinto is a delightful 47 y.o. male with depression, history oftraumatic brain injury, attention deficit hyperactivity disorder and hashad recurrent episodic tachycardia and palpitations with no specificprovoking factors and was noted to have frequent episodes ofsupraventricular tachycardia for which he was referred by Dr. Mccullough discuss treatment options. He notes that over the last year he has hadsudden onset palpitations with heart rates in the 180s to 190s. Most ofthe episodes have occurred at rest without any specific provoking factors.The last time was many minutes to up to an hour. He gets some tightnessin his neck when the episodes persist. He reports an episode of syncopeafter a prolonged episode last October. He was also dehydrated on that day.Since initiation of the metoprolol, the episodes have been lasting shorterin duration but he continues to have multiple episodes per day. Ireviewed the notes by my colleagues as well as his previous cardiovasculartesting. After extensive discussion of the options, Matthieu chose to proceedwith an ablation procedure. Consent & [place] Protocol [place] protocol was followed. TIME OUT conducted just prior tostarting procedure confirmed patient identity, site/side, procedure,patient position, and availability of correct equipment and implants (ifapplicable). The risks, benefits, and alternatives of the procedure were discussed withthe patient and written informed consent was obtained. Procedure Description The patient presented to the EP lab in sinus rhythm.After a huddle andtime out with all participants present was performed, versed and fentanylwas given for mild conscious sedation and then he was subsequently preppedand draped in the usual sterile fashion. After infiltrating the rightgroin with 2% lidocaine, A single 7 Fr and two 8Fr sheaths were placedinto the right femoral vein using ultrasound guidance and the modifiedSeldinger technique. Through the venous sheaths, first the decapolarcatheter was inserted into the coronary sinus, then a non deflectableJosephson catheter was placed into the right ventricular apex and finallyan F curve 4 mm ablation catheter was placed onto His position. Thedecapolar catheter had excellent capture thresholds as did the rightventricular catheter. Baseline conduction intervals were normal. Pacingfrom the right ventricular apex showed decremental ventricular- atrial(VA) conduction with concentric atrial activation consistent withretrograde conduction up the AV node. ParaHisian pacing was consistentwith a ngozi response. Programmed atrial pacing demonstrated dual AVnodal pathways with occasional atypical AV ngozi echoes. On isoproterenolthe patient had easily inducible tachycardia. The tachycardia had VAwobble, eccentric atrial activation with distal to proximal activation inthe coronary sinus consistent with atrial tachycardia. Pacing from theright ventricle dissociated the atrial activation from the right ventricleand occasionally we observed a pseudo- V-A-V response but overall theclinical tachycardia was consistent with atrial tachycardia. Via theright femoral vein, left atrial instrumentation was performed with singletrans-septal puncture using ICE and the Preface Sheath and Heartspanneedle. A single Preface sheath was used for the trans-septal puncturewhich was performed with the 71 cm Heartspan needle. The left atrialopening pressure was 10 mm Hg. Systemic anticoagulation with intravenousheparin was initiated just prior to the first trans-septal puncture with atarget ACT of 350- 400 sec. A [employer]-array multielectrode mapping catheterwas used for mapping the pulmonary veins in tachycardia and an area orearly activation on the lateral mitral annulus just below the base of theappendage was identified. This area was 35 ms pre p wave with a Qs on theunipolar electrogram. Ablation lesions delivered here resulted inacceleration and then termination of tachycardia. Extensive ablation wasrequired before the tachycardia was no longer inducible. We increased theisoproterenol gradually to 16 mcg/ minute and repeat programmedstimulation again showed no inducible tachycardia. He still had dual AVnodal pathways. Intracardiac echo performed in the EP lab showed nopericardial effusion. The catheters were then removed and the sheathswere left in place to be removed in the prep and recovery area. Hetolerated the procedure well and there were no complications.The patientwas taken to a telemetry monitored bed in stable condition. Electrophysiology Study Data Basic Intervals Study State Underlying Rhythm Cycle Length IL PA AH HV QRS [place] QRSMorphology Baseline NSR 754 153 95 50 Post Ablation NSR 579 136 Antegrade 1:1 AV Node Function Study State Pacing Site AV Node SCL 1:1 AH HV Dual AVN Physiology? AVNFast 1:1 AVN Slow 1:1 Wenkebach Cycle Length Baseline CS 330 320 Refractory Periods Study State Pacing Site Paced Cycle Length Paced Cycle ERP AVN ERP DualNode Physiology? AVN ERP (fast) AVN ERP (slow) Baseline CS 500 280-290 Yes 270 Isuprel 500 Retrograde 1:1 AV Node Function Study State Pacing Site AV Node SCL 1:1 Dual AVN Physiology? AVN Fast 1:1 AVN Slow 1:1 Wenkebach Cycle Length No VA Conduction? Midline Activation? Baseline RVA 440 430 Study Events 430 Refractory Periods Study State Pacing Site Paced Cycle Length Paced Cycle ERP AVN ERP DualNode Physiology? AVN ERP (fast) AVN ERP (slow) Baseline RVA 550 250 Yes 430 Study Events Ventricular 550 250 Arrhythmias Study State Arrhythmia Type Arrhythmia Cycle Length Induction Method Baseline ART 340 PES Ablation Data Atrial Tachycardia Energy Source Ablation Catheter Used Rhythm During Ablation # of AttemptsMax Kohler Max Temp. Result RF EZ Steer ThermoCool, 3.5mm STSF-DF NSR 41 40 28 Success Mapping and ablation were performed for an atrial tachycardia in the leftatrium. Comments: Total ablation time: 1112 sec Catheter Use Catheter Type Catheter Description Insertion Site Intracardiac Site SheathSize Sheath Type Sheath Description Ablation EZ STEER Thermocool KOFI, Bidir., 3.5mm tip, Thermocouple, D-Fcurves Right Femoral Vein Map/Abl 8 fr Guide Preface Diagnostic/Map DecaNav F-Curve Decapolar 2-8-2 spacing Right Femoral VeinCS 8 Fr Standard Sidearm Diagnostic Octapolar, D curve, 2 mm Std Deflectable Cath Right FemoralVein RVA 8 fr Standard Sidearm Diagnostic/Map OCTA,PERSEID,2-2-2-2-2,F-CURVE Right Femoral Vein Map/Abl 8fr Guide Preface Procedure(s) Performed ? Site-Rite Ultrasound used for vascular access ? 3D Mapping ? SVT Ablation ? CS/LA Catheter pace/recording ? Intracardiac Echocardiography ? Programmed stimulation after drug Infusion (e.g.,Isoproteronol) Auxiliary Device Mapping System 1: Carto Procedure Detail Estimated Blood Loss: < 50 ml Specimen Collected: None Level of Sedation Achieved: See Anesthesia Note Total Flouro Time: 0 ENAMEL PULVERIZER Fluoro Dose Plane A: 0 mGy Total Flouro Dose: 0 mGy Staff Name Role Henny Queen Sawmilling Operator Racheal Burleson RN Nurse Wanda Rahman EPT Monitor Loren Warner Scrub Gopi Alvarez EPT Lead Front Desk Agent Matthieu Martinez CRNA Medications Ordered and Administered Start Time Stop Time Medication Dose Units Route Ordered By Given By 14:21 0.25% Bupivicaine 10 mL None MD Henny Singh MD 14:21 1% Lidocaine Hydrochloride 10 mL None MD Henny Singh MD 14:21 Heparin 4000 Units IV MD Racheal Singh RN 14:33 (New Bag) Isoproterenol (Isuprel) 2 mcg per min IV MD Racheal Pate, CORINNE 14:35 (New Bag) Isoproterenol (Isuprel) 2 mcg per min IV MD Racheal Pate RN 14:51 0.25% Bupivicaine 5 mL Subcut MD Henny Singh MD 14:51 1% Lidocaine Hydrochloride 5 mL Subcut MD Henny Singh MD 14:59 Heparin 11376 Units IV MD Racheal Singh, CORINNE 15:15 Heparin 2000 Units IV MD Racheal Singh RN 16:10 (New Bag) Isoproterenol (Isuprel) 8 mcg per min IV MD Henny Pate MD 16:26 Heparin 3000 Units IV MD Racheal Singh RN 16:40 (New Bag) Isoproterenol (Isuprel) 8 mcg per min IV MD Racheal Pate RN 16:40 Heparin 3000 Units IV MD Racheal Singh RN 17:05 Protamine 50 Mg IV MD Racheal Singh RN The anesthesia service monitored the patient?s conscious sedation duringthe procedure. The medications listed above were verbally ordered by me and read back tome as documented above. Refer to the hemodynamic procedure log report for additional casedetails. electronically signed on 06/20/2023 5:59:10 PM with status of Final Henny Queen MD Sawmilling Operator [facility] [address] [facility] [address] [place] [address] (p) [phone](f) Henny Queen MD CV IMAGING * CBC with Platelet no Diff (06/20/2023 12:54 PM CDT) [facility] WHITE BLOOD COUNT 6.2 4.5 - 11.0 thou/cu mm 06/20/2023 1:07 PM CDT [facility] RED BLOOD COUNT 5.44 4.30 - 5.90 mil/cu mm 06/20/2023 1:07 PM CDT [facility] HEMOGLOBIN 15.7 13.5 - 17.5 g/dL 06/20/2023 1:07 PM CDT [facility] HEMATOCRIT 45.9 37.0 - 53.0 % 06/20/2023 1:07 PM CDT [facility] MCV 84 80 - 100 fL 06/20/2023 1:07 PM CDT [facility] MCH 28.9 26.0 - 34.0 pg 06/20/2023 1:07 PM CDT [facility] MCHC 34.2 32.0 - 36.0 g/dL 06/20/2023 1:07 PM CDT [facility] RDW 12.4 11.5 - 15.5 % 06/20/2023 1:07 PM CDT [facility] PLATELET COUNT 258 140 - 440 thou/cu mm 06/20/2023 1:07 PM CDT [facility] MPV 9.4 6.5 - 11.0 fL 06/20/2023 1:07 PM CDT [facility] NRBC 0.0 % 06/20/2023 1:07 PM CDT [facility] ABS NRBC 0.0 thou /cu mm 06/20/2023 1:07 PM CDT [facility] Blood BLOOD SPECIMEN / Unknown Non-Lab Venipuncture / Unknown 06/20/2023 12:54 PM CDT 06/20/2023 1:01 PM CDT Henny Queen MD HEMATOLOGY [facility] [address] [place] [address], * Basic Metabolic Panel (06/20/2023 12:54 PM CDT) SODIUM 139 136 - 145 mmol/L 06/20/2023 1:39 PM CDT [facility] POTASSIUM 4.0 3.5 - 5.1 mmol/L 06/20/2023 1:39 PM CDT [facility] CHLORIDE 103 98 - 107 mmol/L 06/20/2023 1:39 PM CDT [facility] CO2,TOTAL 26 22 - 29 mmol/L 06/20/2023 1:39 PM CDT [facility] ANION GAP 10 5 - 18 06/20/2023 1:39 PM CDT [facility] GLUCOSE 97 70 - 99 mg/dL 06/20/2023 1:39 PM CDT [facility] CALCIUM 9.2 8.6 - 10.0 mg/dL 06/20/2023 1:39 PM CDT [facility] BUN 15 6 - 20 mg/dL 06/20/2023 1:39 PM CDT [facility] CREATININE 0.96 0.70 - 1.20 mg/dL 06/20/2023 1:39 PM CDT [facility] BUN/CREAT RATIO 16 10 - 20 1:39 PM T [facility] eGFR >90 >90 mL/min/1.7 3m2 06/20/2023 1:39 PM CDT [facility] Comment:As of 2021, eG FR is calculated by the CKD-EPI creatinine equation without race adjustment. ??eGFR can be influenced by muscle mass, exercise, and diet. ??The reported eGFR is an estimation only and is only applicable if the renal function is stable. Blood BLOOD SPECIMEN / Unknown Non-Lab Venipuncture / Unknown 06/20/2023 12:54 PM CDT 06/20/2023 1:01 PM CDT Henny Queen MD CHEMISTRY [facility] [address] [place] [address], * (ABNORMAL) LIPID PANEL W REFLEX MEASURED LDL (11/17/2021 10:34 AM CDT) CHOLESTEROL,TOTAL 216(H) 100 - 199 mg/dL 11/17/2021 6:34 PM CDT [facility] TRIGLYCERIDES 98 <150 mg/dL 11/17/2021 6:34 PM CDT [facility] HDL CHOLESTEROL 46 >40 mg/dL 6:34 PM CDT [facility] NON-HDL CHOLESTEROL 170(H) <145 mg/dl 11/17/2021 6:34 PM CDT [facility] CHOL/HDL RATIO 4.70(H) <4.50 11/17/2021 6:34 PM CDT [facility] LDL CHOLESTEROL 150(H) <=130 mg/dL 11/17/2021 6:34 PM CDT [facility] VLDL CHOLESTEROL 20 <=30 mg/dL 11/17/2021 6:34 PM CDT [facility] PROVIDER ORDERED STATUS RANDOM 11/17/2021 6:34 PM CDT [facility] Blood BLOOD SPECIMEN / Unknown Venipuncture / Unknown 11/17/2021 10:34 AM CDT 11/17/2021 10:34 AM CDT Cici gokitmatt JOINER CHEMISTRY [facility] [employer] [facility] [address] [place] [address], * ANTI HCV (11/17/2021 10:34 AM CDT) HEPATITIS C ANTIBODY Non-React mi Non-React mi 11/17/2021 6:31 PM CDT [facility] Comment:Antibodies to HCV no t detected; does not exclude the possibility of exposure to HCV. Blood BLOOD SPECIMEN / Unknown Venipuncture / Unknown 11/17/2021 10:34 AM CDT 11/17/2021 10:34 AM CDT Cicicastaclip Odilia JOINER SEND OUTS [facility] [address] [place] [address], [place] from Last 3 Months or Most Recently Relevant to Health Maintenance Advance Directives * Full Code (Latest Code Status on File) Date Activated Date Inactivated Comments 06/20/2023 5:07 PM 06/21/2023 1:32 PM Question Answer Comments Code Status Discussion: Other Care Teams Card Tender Relationship Specialty Start Date End Date Cici Hart[place] [address] PCP - General Family Practice 06/18/20
--- OUTSIDE RECORDS SUMMARY | 2023-08-22 20:37 | XMS_ITS | Encounter Summary ---
Author Name [facility] of [facility] Organization Department of Vetera [facility] Address [address] [place] [address] Selected Encounter This section includes the information on record at [place] for the Encounter. Date/Time Encounter Type Encounter Description Reason Pro vider Source Jul 19, 2023 04:05 PM Outpatient Encounter COMMUNITY CARE CONSULT IHE Encounter Template Text not used by [place] Plan of Treatment: Future Appointments (+ 6 months) and Future Tests (+/- 45 days) The Plan of Treatment section includes future care activities for the patient [facility] [place] [facility] This section includes future appointments and future orders which are active, pending or scheduled. Future Appointments This section includes appointments that were scheduled to occur 6 months from the date of the Encounter, up to a maximum of 20 appointments. The data comes from all [place] treatment facilities. Appointment Date/Time Appointment Type Appointme nt Facility Name Jul 25, 2023 10:15 AM AMBULATORY - PSYCHIATRY [facility] August 22, 2023 09:00 PM AMBULATORY - NONE [facility] Sep 19, 2023 09:15 AM AMBULATORY - PSYCHIATRY [facility] Active, Pending, and Scheduled Orders This section includes a listing of several types of active, pending, and scheduled orders, including clinic medications orders, diagnostic test orders, procedure orders and consult orders; where the start date of the order is 45 days before the date of the Encounter or 45 days after the date of theEncounter. The data comes from all [place] treatment facilities. Test Date/Time Test Type Test Details Facility Name Jun 09, 2023 12:01 PM Consult Order COMMUNITY CARE-SLEEP MEDICINE Cons Vending Stand Supervisor's Choice [facility] Social History: Smoking Status (Most current) and Tobacco Use (All prior to encounter date) This section includes the most current, and the historical, smoking and tobacco- related health factors from the [facility] where the Encounter took place. Current Smoking Status This section includes the most current smoking, or tobacco-related health factor, from the [place] facility where the Encounter took place. Date/Time Current Smoking Status Comment Mellissa aleman Dec 27, 2022 01:00 PM VA-TOBACCO QUIT 15 YRS OR MORE [facility] Tobacco Use History This section includes a history of the smoking, or tobacco-related health factors, that were collected on or before the date of the Encounter. The data comes from the [facility] where the Encounter took place. Date/Time Smoking Status/Tobacco Use Comment F kala Dec 27, 2022 01:00 PM VA-TOBACCO QUIT 15 YRS OR MORE [facility] Feb 23, 2022 09:30 AM VA-TOBACCO FORMER USER [facility] Feb 23, 2022 09:30 AM VA-TOBACCO QUIT 15 YRS OR MORE [facility] Jan 14, 2021 11:00 AM VA-TOBACCO NEVER USED [facility] Jun 13, 2019 12:54 PM VA-TOBACCO FORMER USER [facility] Jun 13, 2019 12:54 PM VA-TOBACCO QUIT 5 TO < 15 YRS [facility] Jun 13, 2018 08:51 AM VA-TOBACCO FORMER USER [facility] Jun 13, 2018 08:51 AM VA-TOBACCO QUIT 5 TO < 15 YRS [facility] Encounter Notes: All associated encounter notes This section contains the clinical notes associated to the Encounter. Date/Time Encounter Note(s) Provider Source Jul 19, 2023 04:06 PM NONVA NOTE: LOCAL TITLE: COMMUNITY CARE PRE-AUTH LETTER (AUTOPRINT) STANDARD TITLE: NONVA NOTE DATE OF NOTE: JUL 19, 2023@16:06 ENTRY DATE: JUL 19, 2023@16:06:53 AUTHOR: MANDEEP BEAR COSIGNER: URGENCY: STATUS: COMPLETED Jul MATTHIEU PINTO [address] [place], [place] [address] Dear MATTHIEU PINTO, Your VA provider has referred you to a provider within the community for care. Your medical care for Sleep Medicine has been authorized with the community care provider listed below. DO NOT REPORT TO THE [facility] Provider info: Care has been approved for the following vendor: Office name, address, and phone number: [facility] [address] [place] [address] Please contact the identified provider to schedule your community appointment. If you need assistance with this appointment, please call your facility community care office [facility] Office of Community Care at [phone] during the hours of 8:30AM - 3:00PM. Please follow up with your local [facility] community care office once this is scheduled. This step is needed to ensure your referral duration is maximized and the VA has accurate referral information for billing purposes. Authorization Number: [id number] Referral Issue Date: 2023-07-13 Expiration Date: 2024-01-09 (subject to change based on first appointment) If you are unable to schedule this appointment or the appointment is no longer needed, please contact the community provider above for notification/rescheduling and then call the [facility] Office [facility] Community Care at [phone] during the hours of 8:30AM - 3:00PM. If you need additional care/services not mentioned above or your authorization has and additional care is needed, please contact your primary care provider for a new referral. To review all care/service(s) approved under your referral, please go to the following link: [employer] [place] Portal([email or web address]) Co-Payments: If you are required to pay a VA co-payment, you will be billed by the VA for each authorized visit that you attend. However, you are NOT REQUIRED to make co-payments to a community provider. Thank you for the opportunity to serve you. Sincerely, [place] [facility] ([facility]) /sania/ MANDEEP BEAR Signed: 07/19/2023 16:08 MANDEEP BEAR [facility]
--- OUTSIDE RECORDS SUMMARY | 2023-08-22 20:37 | XMS_ITS | Encounter Summary ---
Author Name [facility] Organization Department of [facility] Address [address] [place] [address] Selected Encounter This section includes the information on record at [place] for the Encounter. Date/Time Encounter Type Encounter Description Reason Provider Source Jul 25, 2023 10:15 AM OFFICE O/P EST MOD 30 MIN [facility] - IND ICD-10-CM F43.12 Post-traumatic stress disorder, chronic SOLIS CLIFTON Derik Encounter Template Text not used by [place] Assessments - Encounter Diagnoses This section includes the primary and secondary diagnoses documented for the Encounter. Date/Time Primary/Secondary Diagnosis Diagnosis Name Provider Source Jul 25, 2023 10:38 AM PRIMARY Post-traumatic stress disorder, chronic SIVAKUMAR CLIFTON [facility] Jul 25, 2023 10:38 AM SECONDARY Attn-defct hyperactivity disorder, predom inattentive type SIVAKUMAR CLIFTON [facility] Jul 25, 2023 10:38 AM SECONDARY Major depressive disorder, recurrent, unspecified SIVAKUMAR CLIFTON [facility] Plan of Treatment: Future Appointments (+ 6 months) and Future Tests (+/- 45 days) The Plan of Treatment section includes future care activities for the patient from all [place] treatmentfacilities. This section includes future appointments and future orders which are active, pending or scheduled. Future Appointments This section includes appointments that were scheduled to occur 6 months from the date of the Encounter, up to a maximum of 20 appointments. The data comes from all [place] treatment facilities. Appointment Date/Time Appointment Type Appointme nt Facility Name August 22, 2023 09:00 PM AM[facility]ULATORY - NONE [facility] Sep 19, 2023 09:15 AM AMBULATORY - PS[place]AT[place] Social History: Smoking Status (Most current) and Tobacco Use (All prior to encounter date) This section includes the most current, and the historical, smoking and tobacco- related health factors from the [facility] where the Encounter took place. Current Smoking Status This section includes the most current smoking, or tobacco-related health factor, from the [facility] where the Encounter took place. Date/Time Current Smoking Status Comment Mellissa aleman Dec 27, 2022 01:00 PM VA-TOBACCO FORMER USER [facility] Tobacco Use History This section includes a history of the smoking, or tobacco-related health factors, that were collected on or before the date of the Encounter. The data comes from the [facility] where the Encounter took place. Date/Time Smoking Status/Tobacco Use Comment F kala Dec 27, 2022 01:00 PM VA-TOBACCO QUIT 15 YRS OR MORE [facility] Feb 23, 2022 09:30 AM VA-TOBACCO FORMER USER [facility] Feb 23, 2022 09:30 AM VA-TOBACCO QUIT 15 YRS OR MORE [facility] Jan 14, 2021 11:00 AM VA-TOBACCO NEVER USED [facility] Jun 13, 2019 12:54 PM VA-TOBACCO FORMER USER [facility] Jun 13, 2019 12:54 PM VA-TOBACCO QUIT 5 TO < 15 YRS [facility] Jun 13, 2018 08:51 AM VA-TOBACCO FORMER USER [facility] Jun 13, 2018 08:51 AM VA-TOBACCO QUIT 5 TO < 15 YRS [facility] Encounter Notes: All associated encounter notes This section contains the clinical notes associated to the Encounter. Date/Time Encounter Note(s) Provider Source Jul 25, 2023 10:04 AM PSYCHIATRY E & M NOTE: LOCAL TITLE: PSYCHIATRIC EVALUATION & MANAGEMENT STANDARD TITLE: PSYCHIATRY [facility] NOTE DATE OF NOTE: JUL 25, 2023@10:04 ENTRY DATE: JUL 25, 2023@10:04:56 AUTHOR: OLU CLIFTON EXP COSIGNER: URGENCY: STATUS: COMPLETED TELEPSYCHIATRIC ([facility]) EVALUATION AND MANAGEMENT FOLLOWUP VISIT Patient verbally consented to video appointment. Start Time: 1015 End Time: 1040 Patient's current location: At the home address on file. Emergency number: See numbers on file. Physician/Health Care Personnel: Olu Clifton MD Patient seen for 25 minute outpatient visit, with 20 minutes spent in psychotherapy. -- IDENTIFICATION: MATTHIEU PINTO is a 47 year old seen for follow up visit with the following mental health diagnoses: Posttraumatic stress disorder, chronic Major depressive disorder, recurrent, moderate Attention deficit hyperactivity disorder, predominantly inattentive type ASSESSMENT: MATTHIEU PINTO reports stable mood with ongoing fatigue and irritability in the afternoons and evenings. He reports good adherence to his medications without significant side effects and notices minimal improvement with increased dose of escitalopram. He reports good sleep hygiene, adequate sleep duration and reduced sleep latency with ongoing excessive daytime sleepiness. He has a community care sleep medicine referral pending. Stressors remain stable primarily attributed to childcare responsibilities. He denies new health concerns or elevated substance use. He denies SI or safety concerns. We discussed potential medication changes however he would like to maintain his current dose of escitalopram given previous improvement in mood. Additional changes will be deferred until results of his sleep study are received given his significant excessive daytime sleepiness and improvement with privately purchased CPAP device. No changes indicated. 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 Patient expressed understanding that they can call me or return for care sooner should they have side effects from medications, an increase in symptoms or other clinical concerns. -- Chart reviewed since last visit. The following is obtained from the patient and chart review. INTERVAL HISTORY: Since the last visit, MATTHIEU PINTO reports: - General/Mood: seems like it's okay feeling fatigued and irritable in afternoons and evenings - Meds: Good adherence, denies significant side effects, so significant difference from escitalopram increase - Sleep: Pending community care sleep medicine referral. Using privately purchased CPAP. Reports consistent sleep schedule, 6-7 hrs TST, reduced SL, continuous. Minimal RLS - Stress: Childcare stressors, stable. - Health: Stable - Drug/alcohol use: Denies alcohol or illicit substance use - Safety: denies SI or safety concerns TREATMENT HISTORY: 06/09/2023: Sleep medicine referral, increase escitalopram to 10 mg daily 07/25/2023: No changes MEDICATIONS: Active Outpatient Medications (including Supplies): Active Outpatient Medications Status 1) BUPROPION HCL 150MG 24HR SA TAB TAKE THREE TABLETS BY ACTIVE MOUTH EVERY MORNING FOR MOOD 2) CARBOXYMETHYLCELLULOSE 1% OPH GEL 0.4ML INSTILL 1 ACTIVE DROP TO BOTH EYES TWICE A DAY FOR EYE IRRITATION 3) ESCITALOPRAM OXALATE 10MG TAB TAKE ONE TABLET BY ACTIVE MOUTH EVERY DAY FOR MOOD 4) SILDENAFIL CITRATE 100MG TAB TAKE ONE TABLET BY MOUTH ACTIVE NEEDED - TAKE 1 HOUR BEFORE ANTICIPATED SEXUAL ACTIVITY--MAXIMUM 6 DOSES FOR 30-DAY SUPPLY. FOR ERECTIONS Active Non-VA Medications Status 1) Non-VA AMPHETAMINE/DEXTROAMPHETAMINE 30MG TAB 30MG ACTIVE MOUTH EVERY DAY 2) Non-VA OMEPRAZOLE 20MG EC CAP 20MG MOUTH EVERY DAY ACTIVE 6 Total Medications ALLERGIES: Patient has answered NKA VITALS: Last Weight:233 lb [105.69 kg] (12/27/2022 12:51) BMI (if available): 30.8 Last blood pressure: 127/86 (12/27/2022 12:51) Last Pulse: 91 (12/27/2022 12:51) Recent Labs: CREATININE____ TSH ____ HEMOGLOBIN A1C____ GLUCOSE____ CHOLESTEROL____ SGOT____ SGPT____ GAMMA GTP____ WBC____ PLT ____ Drug levels (if relevant): LITHIUM____ VALPROIC ACID____ CARBAMAZEPINE____ PSYCHIATIC EXAMINATION: Visit transition to audio due to video difficulties -General: Alert, awake, pleasant, cooperative hygiene. -Orientation: Alert to person, place and time. -Cognition/Memory: Intact, no evidence of memory problems -Speech: Normal rate and rhythm, coherent. -Mood: Okay -Thought Process/Content: Goal-directed, linear. Denies SI/HI. -Delusions: No. -Sensorium/Perceptual Disturbance: Clear. Did not appear to be responding to internal stimuli. No evidence of auditory and/or visual hallucinations. -Insight/Judgment: Intact -Attention: Intact. SAFETY ASSESSMENT: - Risks: male, MH dx, hx etoh use disorder, significant blast exposures - Protective Factors: denies SI, support from spouse/family, has social support, spiritual yasmine, stable financial/living situation, no elevated etoh/substance use, future-oriented, intact reality testing, connected to providers, no hx of SAs - Assessment: Acute risk: low Chronic Risk: low - Attending appointments, following recommendations, and compliant with prescribed psychiatric meds. /sania/ Olu Clifton MD Staff Psychiatrist Signed: 07/25/2023 10:38 OLU CLIFTON [facility]
--- OUTSIDE RECORDS SUMMARY | 2023-08-22 20:37 | XMS_ITS | Encounter Summary ---
Author Name [facility] of [facility] Organization [facility] Address [address] [place] [address] Selected Encounter This section includes the information on record at [place] for the Encounter. Date/Time Encounter Type Encounter Description Reason Provider Source Jun 09, 2023 10:15 AM OFFICE O/P EST MOD 30 MIN [facility] - IND ICD-10-CM F43.12 Post-traumatic stress disorder, chronic SOLIS CLIFTON Derik Encounter Template Text not used by [place] Assessments - Encounter Diagnoses This section includes the primary and secondary diagnoses documented for the Encounter. Date/Time Primary/Secondary Diagnosis Diagnosis Name Provider Source Jun 09, 2023 12:08 PM PRIMARY Post-traumatic stress disorder, chronic SIVAKUMAR CLIFTON [facility] Jun 09, 2023 12:08 PM SECONDARY Attn-defct hyperactivity disorder, predom inattentive type SIVAKUMAR CLIFTON [facility] Jun 09, 2023 12:08 PM SECONDARY Major depressive disorder, recurrent, unspecified SIVAKUMAR CLIFTON [facility] Plan of Treatment: Future Appointments (+ 6 months) and Future Tests (+/- 45 days) The Plan of Treatment section includes future care activities for the patient from all [place] treatmentfacilities. This section includes future appointments and future orders which are active, pending or scheduled. Future Appointments This section includes appointments that were scheduled to occur 6 months from the date of the Encounter, up to a maximum of 20 appointments. The data comes from all [place] treatment facilities. Appointment Date/Time Appointment Type Appointme nt Facility Name Jul 25, 2023 10:15 AM AMB[place] [facility] August 22, 2023 09:00 PM AM[facility] - [facility] [place] [facility] Sep 19, 2023 09:15 AM AMBULATORY [place] [facility] Active, Pending, and Scheduled Orders This section includes a listing of several types of active, pending, and scheduled orders, including clinic medications orders, diagnostic test orders, procedure orders and consult orders; where the start date of the order is 45 days before the date of the Encounter or 45 days after the date of theEncounter. The data comes from all [place] treatment facilities. Test Date/Time Test Type Test Details Facility Name Jun 09, 2023 12:01 PM Consult Order COMMUNITY CARE-SLEEP MEDICINE Cons Board Finisher's Choice [facility] Social History: Smoking Status (Most current) and Tobacco Use (All prior to encounter date) This section includes the most current, and the historical, smoking and tobacco- related health factors from the [place] facility where the Encounter took place. Current Smoking Status This section includes the most current smoking, or tobacco-related health factor, from the [facility] facility where the Encounter took place. Date/Time Current Smoking Status Comment Facil ity Dec 27, 2022 01:00 PM VA-TOBACCO QUIT 15 YRS OR MORE [facility] Tobacco Use History This section includes a history of the smoking, or tobacco-related health factors, that were collected on or before the date of the Encounter. The data comes from the [facility] facility where the Encounter took place. Date/Time Smoking Status/Tobacco Use Comment F acility Dec 27, 2022 01:00 PM VA-TOBACCO QUIT 15 YRS OR MORE [facility] Feb 23, 2022 09:30 AM VA-TOBACCO FORMER USER [facility] Feb 23, 2022 09:30 AM VA-TOBACCO QUIT 15 YRS OR MORE [facility] Jan 14, 2021 11:00 AM VA-TOBACCO NEVER USED [facility] Jun 13, 2019 12:54 PM VA-TOBACCO FORMER USER [facility] Jun 13, 2019 12:54 PM VA-TOBACCO QUIT 5 TO < 15 YRS [facility] Jun 13, 2018 08:51 AM VA-TOBACCO FORMER USER [facility] Jun 13, 2018 08:51 AM VA-TOBACCO QUIT 5 TO < 15 YRS [facility] Encounter Notes: All associated encounter notes This section contains the clinical notes associated to the Encounter. Date/Time Encounter Note(s) Provider Source Jun 09, 2023 10:16 AM PSYCHIATRY E & M NOTE: LOCAL TITLE: MH PSYCHIATRIC EVALUATION & MANAGEMENT STANDARD TITLE: PSYCHIATRY E & M NOTE DATE OF NOTE: JUN 09, 2023@10:16 ENTRY DATE: JUN 09, 2023@10:16:46 AUTHOR: OLU CLIFTON COSIGNER: URGENCY: STATUS: COMPLETED PSYCHIATRY DIAGNOSTIC EVALUATION WITH MEDICAL SERVICES Patient seen for initial evaluation. Duration: 60 minutes. ASSESSMENT: MATTHIEU PINTO is a 47 year old MALE with a history of PTSD and depression who presents for transfer care evaluation. Information is gathered through chart review and interview. Patient was a good historian. 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 He notes starting escitalopram has helped his mood and is interested in increasing his dose. Notably Adderall use is on hold due to a pending cardiac ablation for SVT and he has experienced increased difficulty with focus and attention leading to less productivity and consequently lower mood. He reports a delayed sleep phase and loud snoring with excessive daytime sleepiness. His purchased a CPAP machine online and he uses it with good effect however does not use it consistently. His cardiac ablation is scheduled on 06/20/2023. He denies significant substance use, SI or safety concerns. Given his tolerance and improved mood from escitalopram increasing his dose is appropriate. He was encouraged to reengage with supportive therapy at [facility] when amenable. No other changes indicated. 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 Patient verbalizes understanding. Patient expressed understanding that they can call me or return for care sooner should they have side effects from medications, an increase in symptoms or other clinical concerns. INFORMED CONSENT: The patient is able to understand the risks and benefits of the medications as explained. The patient verbally agrees to take the medications as prescribed and to inform me or other physicians if there are side effects and to seek emergency medical care if serious side effects develop such as an allergic reaction, chest pain, or difficulty breathing. EDUCATION: There is a RISK OF SEXUAL SIDE EFECTS. Patient advised to inform prescriber if changes in sexual desire or function are noticed. SAFETY ASSESSMENT: - Risks: male, MH dx, [...] recommendations, and compliant with prescribed psychiatric meds. CHIEF COMPLAINT: kind of a rough year HISTORY OF PRESENT PROBLEM: -General: Reports a difficult summer, reports increased home obligations d/t working as travel nurse. -Mood: difficult, more episodes of depression. Mood lowers in afternoon 3-4 pm most days with increased irritability. Taking escitalopram 5 mg which helped mood. Increased difficulty with concentration after pausing Adderall -Meds: on an Adderall pause d/t pending ablation for SVT. Escitalopram? -Sleep: delayed sleep phase, 7 hrs TST, normal PANDA, continuous, few nightmares, uses CPAP purchased online with good effect, reports loud snoring and prior sleep study in did. Intermittent RLS symptoms, denies RBD -Stress: on the high end of manageable, has a long commute, childcare responsibilities, daughter has 2 hrs of theater rehearsal daily. -Health: GERD, cardiac ablation on 06/20/23 after syncopal episode. -Safety: denies SI or safety concerns -CD: Denies alcohol or illicit substance use, occasional CBD use -Psychosis: denies -Therapy: [facility] discontinued felt too busy PSYCHIATRIC REVIEW OF SYSTEMS: -DEPRESSION: little interest/pleasure in doing things; feeling down, depressed, hypersomnia; feeling tired or having little energy; appetite changes; low self- concept; trouble with concentration; agitation; -PSYCHOSIS: denies -PEPPER: irritability; grandiosity -ANXIETY: feeling nervous, anxious, or on edge; not being able to stop or control worrying; worrying too much about different things; restlessness; easily annoyed or irritable; -PANIC ATTACKS: frequency: [id number], triggers: unprovoked or stress, duration: 2 hours, symptoms: tachycardia, SOB, resolves through: sleep, distractions -SOCIAL PHOBIA: denies -OCD: denies -PTSD: experienced or witnessed event; intrusive memories; avoiding traumatic stimuli; increased arousal/startle; impaired functioning; -ED: stress eating -ADHD: poor attention to detail; difficulty sustaining attention; poor listening; poor task completion; poor organization; avoids tasks; easily distracted; forgetful -BPLD: chronic emptiness; intense anger-outbursts; labile mood; MEDICAL REVIEW OF SYSTEMS: A complete review of systems is negative other than noted in HPI. No report of headache, vison changes, hearing changes; changes in ability to smell/taste, trouble swallowing, chest pain, shortness of breath, coughing, wheezing, abdominal pain, diarrhea, constipation, polyuria, dysuria -Some orthostasis occurring with SVT PSYCHIATRIC HISTORY (From interview and chart review): -Prior psychiatric diagnoses: PTSD, MDD, TEAGAN, ADHD -History of psychosis: denies -Suicide attempts: denies -Psychiatric hospitalizations: denies -Self-injurious behavior: denies -Violence towards others: denies -Civil commitment: N/A -History of ECT: denies SUBSTANCE ABUSE HISTORY (From interview and chart review): -Alcohol: Hx of heavy use, 10 yrs since regularly drank -Tobacco: 2009 last smoked -Caffeine: 5 cups coffee -Other Drugs: denies -Chemical Dependency Treatment: ADAPT outpatient EtOH tx in 2004, PRIOR TREATMENT HISTORY: - SSRIS: escitalopram- helpful for mood, citalopram-lack of efficacy SNRIS: OTHER ADs: bupropion-good effect on mood APs: MOOD STABILIZERS: ANXIOLYTIC/SEDATIVES: zolpidem-helps with sleep MATs: STIMULANTS: Adderall-works well for attention, OTHERS: PSYCHOTHERAPY: Individual supportive psychotherapy at [facility]- helpful. CBT for PTSD- small benefit --------- SOCIAL HISTORY (From interview and chart review): -Early history: Born in [place] and grew up in [place], pretty good childhood, mother with MS, some stress from siblings getting in trouble -Social supports/Recreation: close with family, 1 close friend -Partner/Children: Divorce, 16 yrs, 2 children ages 14 and 10 -Current living situation: [place] in home with and kids -Educational History: Poor student, no discipline issues, associates degree and BA in [employer]. 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 PAST MEDICAL/SURGICAL HISTORY: Depression (SCT [id number]) Posttraumatic stress disorder (SCT [id number]) Migraine (SCT 26231558) Erectile dysfunction (SCT 225064354) Seasonal allergic rhinitis (SCT [id number] (SCT [id number]) Family social history ([facility] [id number]) ALLERGIES: Patient has answered NKA MEDICATION RECONCILIATION: Active Outpatient Medications (including Supplies): Active Outpatient Medications Status 1) BUPROPION HCL 150MG 24HR SA TAB TAKE THREE TABLETS BY ACTIVE MOUTH EVERY MORNING FOR MOOD 2) CARBOXYMETHYLCELLULOSE 1% OPH GEL 0.4ML INSTILL 1 ACTIVE DROP TO BOTH EYES TWICE A DAY FOR EYE IRRITATION 3) SILDENAFIL CITRATE 100MG TAB TAKE ONE TABLET BY MOUTH ACTIVE NEEDED - TAKE 1 HOUR BEFORE ANTICIPATED SEXUAL ACTIVITY--MAXIMUM 6 DOSES FOR 30-DAY SUPPLY. FOR ERECTIONS Active Non-VA Medications Status 1) Non-VA AMPHETAMINE/DEXTROAMPHETAMINE 30MG TAB 30MG ACTIVE MOUTH EVERY DAY 2) Non-VA OMEPRAZOLE 20MG EC CAP 20MG MOUTH EVERY DAY ACTIVE 5 Total Medications LABS: LAB RESULTS TODAY - NONE FOUND VITALS: Last Weight:233 lb [105.69 kg] (12/27/2022 12:51) BMI (if available): 30.8 Last blood pressure: 127/86 (12/27/2022 12:51) Last Pulse: 91 (12/27/2022 12:51) PSYCHIATIC EXAMINATION: -General: Alert, awake, calm, cooperative, appropriately dressed, adequate hygiene. -Gait: Ambulatory without assistance. -Orientation: Alert to person, place and time. -Cognition/Memory: Intact, some short term memory problems. -Eye Contact: Good -Psychomotor Activity: Normal. -Abnormal Involuntary Movements: Absent. -Speech: Normal rate and rhythm, coherent. -Mood: Difficult -Affect: Mood congruent, intensity normal. -Thought Process/Content: Goal-directed, linear. Denies SI/HI. -Delusions: No. -Sensorium/Perceptual Disturbance: Clear. Did not appear to be responding to internal stimuli. No evidence of auditory and/or visual hallucinations. -Insight/Judgment: Intact -Attention: Intact. Suicide Screen: C-SSRS Screening [place]-Suicide Severity Rating Scale (C-SSRS Screener) 1. Over the past month, have you wished you were or wished you could go to sleep and not wake up? Yes 2. Over the past month, have you had any actual thoughts of killing yourself? No 3. Over the past month, have you been thinking about how you might do this? Response not required due to responses to other questions. 4. Over the past month, have you had these thoughts and had some intention of acting on them? Response not required due to responses to other questions. 5. Over the past month, have you started to work out or worked out the details of how to kill yourself? Response not required due to responses to other questions. 6. If yes, at any time in the past month did you intend to carry out this plan? Response not required due to responses to other questions. 7. In your lifetime, have you ever done anything, started to do anything, or prepared to do anything to end your life (for example, collected pills, obtained a gun, gave away valuables, went to the roof but didn't jump)? No 8. If YES, was this within the past 3 months? Response not required due to responses to other questions. /sania/ Olu Clifton MD Staff Psychiatrist Signed: 06/09/2023 12:08 OLU CLIFTON [facility]
== END 2023-08-22 20:34 | disposition home or self-care (01) ==
LOC: SLEEP 20:34
PROVIDERS: PCP Family Medicine
DX: G47.33 Obstructive sleep apnea (adult) (pediatric) (principal); G47.61 Periodic limb movement disorder
CPT/HCPCS: 95810

== ENCOUNTER 2024-01-14 10:17 | Emergency (ER) | payer OTHER, SELFPAY ==
[2024-01-14 10:45] VITALS: BP 129/75; PULSE 80; RESP 18; TEMP 36.3; O2SAT 97; BMI 30.3
--- NOTE | 2024-01-14 12:09 | ED.WOUNDLAC ---
HPI - Wound/Laceration General Chief Complaint: Laceration/Wound Stated Complaint: L thumb lac Time Seen by Provider: 01/14/24 10:44 History of Present Illness HPI narrative: This 48-year-old male comes in with a laceration to the tip of his left thumb. He was cutting onions with a sharp knife and actually did an avulsion of the tip of his left thumb. He comes in because of persistent bleeding. He states that he does take a baby aspirin daily. His tetanus status is up-to-date. Related Data Home Medications ?Medication ?Instructions ?Recorded ?Confirmed bupropion HCl 300 mg 24 hr tablet, 450 mg PO DAILY 12/03/22 10/19/23 extended release dextroamphetamine-amphetamine ER 30 mg PO DAILY 12/03/22 10/19/23 30 mg 24hr capsule,extend release (Adderall XR) escitalopram oxalate 5 mg tablet 5 mg PO DAILY 12/03/22 10/19/23 (Lexapro) loratadine 10 mg tablet 10 mg PO DAILY 12/03/22 10/19/23 aspirin 81 mg tablet,delayed 81 mg PO QDAY 10/19/23 10/19/23 release (Adult Low Dose Aspirin) omeprazole magnesium [Acid Watch Crystal Molder PO 10/19/23 10/19/23 (omeprazole)] Allergies Allergy/AdvReac Type Severity Reaction Status Date / Time No Known Drug Allergies Allergy Verified 12/03/22 16:22 Review of Systems Status of ROS: Reports: 10 or more systems reviewed and unremarkable except as noted in History and below Narrative: Constitutional: No fevers, no weight gain or loss. Eyes: No discharge. No vision changes. HENT: No congestion, no sore throat, no ear pain. Cardiovascular: No chest pain, no palpitations. Respiratory: No shortness of breath, no wheezes, no cough. Gastrointestinal: No abdominal pain, no vomiting, no diarrhea. Genitourinary: No dysuria, no hematuria. Musculoskeletal: Normal range of motion. Skin: No rashes, no pruritis. Neurological: No dizziness, weakness, sensory change, speech change. Endo/Heme/Allergies: No bruising or bleeding. No polydipsia. Pysch: no suicidality, no anxiety, no insomnia. All other systems reviewed and are negative. PFSH PFSH Social History Non-prescribed substance use: denies use Exam Narrative: Exam Narrative: Constitutional: Well-developed, well-nourished, no acute distress. HEENT: Normocephalic, atraumatic. Neck: Normal range of motion. Nontender. Supple. Heart: Intact distal pulses. Lungs: No chest discomfort. No wheezes, rhonchi, or rales. Abdomen: Nontender. Back: Normal range of motion. Extremities: Normal range of motion. The tip of the left thumb has an avulsion injury measuring about 1 cm in diameter with persistent bleeding. Skin: Intact. No rash. Warm. No erythema or pallor. Neurologic: No altered sensation. No weakness. Alert and oriented. Psychiatric: No suicidality. No anxiety or depression. No insomnia. Nursing notes and vitals signs are reviewed. Const: Vital Signs, click to edit/add: Vital Signs - 24 hr 01/14/24 10:45 Temperature 97.3 F L Pulse Rate [Pulse Oximeter] 80 Respiratory Rate 18 Blood Pressure [Ri ght Upper Arm] 129/75 Pulse Oximetry 97 Oxygen Delivery Me thod Room Air Course Vital Signs Vital signs: Initial Vital Signs Temperature 97.3 F L 01/14/24 10:45 Temperature Source Temporal Artery Scan 01/14/24 10:45 Pulse Rate 80 01/14/24 10:45 Respiratory Rate 18 01/14/24 10:45 Blood Pressure 129/75 01/14/24 10:45 Blood Pressure Mean 93 01/14/24 10:45 Pulse Oximetry 97 01/14/24 10:45 Oxygen Delivery Method Room Air 01/14/24 10:45 Vital Signs Temperature 97.3 F L 01/14/24 10:45 Pulse Rate 80 01/14/24 10:45 Respiratory Rate 18 01/14/24 10:45 Blood Pressure 129/75 01/14/24 10:45 Pulse Oximetry 97 01/14/24 10:45 Oxygen Delivery Method Room Air 01/14/24 10:45 Temperature 97.3 F L 01/14/24 10:45 Pulse Rate 80 01/14/24 10:45 Respiratory Rate 18 01/14/24 10:45 Blood Pressure 129/75 01/14/24 10:45 Pulse Oximetry 97 01/14/24 10:45 Oxygen Delivery Method Room Air 01/14/24 10:45 MDM - Wound/Laceration MDM Narrative Medical decision making narrative: This patient has an avulsion injury of his left thumb with persistent bleeding. I did use a ring exsanguinated ir for hemostasis providing a tourniquet. After this the patient received injection of lidocaine with epinephrine followed by silver nitrate and then Dermabond to seal the wound. 3 bandages were applied with some pressure and then the ring exsanguinated ir was released. There was no sign of ongoing bleeding. Instructions regarding wound care were given. Discharge Plan Discharge Clinical Impression: Laceration Patient Disposition: Home, Self-Care Condition: Improved Additional Instructions: Keep wound clean and dry. Use kina-kyn-wyjssdn medicines as needed and directed. Follow up with MD return if worsening. Prescriptions: No Action aspirin [Adult Low Dose Aspirin] 81 mg tablet,delayed release (DR/EC) 81 mg PO QDAY omeprazole magnesium [Acid Watch Crystal Molder (omeprazole)] PO loratadine 10 mg tablet 10 mg PO DAILY escitalopram oxalate [Lexapro] 5 mg tablet 5 mg PO DAILY dextroamphetamine-amphetamine [Adderall XR] 30 mg capsule,extended release 24hr 30 mg PO DAILY bupropion HCl 300 mg tablet extended release 24 hr 450 mg PO DAILY Follow Up/Referrals: Cici Hartley DO [Primary Care Provider] - Stand Alone Forms: In[employer] Info Instructions
--- OUTSIDE RECORDS SUMMARY | 2024-01-14 12:50 | XMS_ITS | Encounter Summary ---
Author Name [facility] [place] [place] Organization [facility] [place] Address [address] [place] [address] Care Team Providers Care Materials Development Engineer Name Role Phone JOHN CESAR Primary Care Provider Unavailabl e Selected Encounter This section includes the information on record at [place] for the Encounter. Date/Time Encounter Type Encounter Description Reason Provider Source Sep 19, 2023 09:15 AM OFFICE O/P EST MOD 30 MIN [facility] - IND ICD-10-CM F43.12 Post-traumatic stress disorder, chronic SOLIS CLIFTON Derik Encounter Template Text not used by [place] Assessments - Encounter Diagnoses This section includes the primary and secondary diagnoses documented for the Encounter. Date/Time Primary/Secondary Diagnosis Diagnosis Name Provider Source Sep 19, 2023 09:42 AM PRIMARY Post-traumatic stress disorder, chronic SIVAKUMAR CLIFTON [facility] Sep 19, 2023 09:42 AM SECONDARY Attn-defct hyperactivity disorder, predom inattentive type SIVAKUMAR CLIFTON [facility] Sep 19, 2023 09:42 AM SECONDARY Major depressive disorder, recurrent, unspecified SIVAKUMAR CLIFTON [facility] Plan of Treatment: Future Appointments (+ 6 months) and Future Tests (+/- 45 days) The Plan of Treatment section includes future care activities for the patient from all [place] treatmentfaunc health pardeeities. This section includes future appointments and future orders which are active, pending or scheduled. Future Appointments This section includes appointments that were scheduled to occur 6 months from the date of the Encounter, up to a maximum of 20 appointments. The data comes from all [place] treatment facilities. Appointment Date/Time Appointment Type Appointme nt Facility Name Nov 22, 2023 03:45 PM AMBULATORY - PSYCHIATRY OR [facility] Social History: Smoking Status (Most current) and Tobacco Use (All prior to encounter date) This section includes the most current, and the historical, smoking and tobacco- related health factors from the [facility] where the Encounter took place. Current Smoking Status This section includes the most current smoking, or tobacco-related health factor, from the [facility] where the Encounter took place. Date/Time Current Smoking Status Comment Mellissa aleman Dec 27, 2022 01:00 PM VA-TOBACCO FORMER USER [facility] Tobacco Use History This section includes a history of the smoking, or tobacco-related health factors, that were collected on or before the date of the Encounter. The data comes from the [facility] where the Encounter took place. Date/Time Smoking Status/Tobacco Use Comment F kala Dec 27, 2022 01:00 PM VA-TOBACCO QUIT 15 YRS OR MORE [facility] Feb 23, 2022 09:30 AM VA-TOBACCO FORMER USER [facility] Feb 23, 2022 09:30 AM VA-TOBACCO QUIT 15 YRS OR MORE [facility] Jan 14, 2021 11:00 AM VA-TOBACCO NEVER USED [facility] Jun 13, 2019 12:54 PM VA-TOBACCO FORMER USER [facility] Jun 13, 2019 12:54 PM VA-TOBACCO QUIT 5 TO < 15 YRS [facility] Jun 13, 2018 08:51 AM VA-TOBACCO FORMER USER [facility] Jun 13, 2018 08:51 AM VA-TOBACCO QUIT 5 TO < 15 YRS [facility] Encounter Notes: All associated encounter notes This section contains the clinical notes associated to the Encounter. Date/Time Encounter Note(s) Provider Source Sep 19, 2023 08:20 AM PSYCHIATRY E & M N OTE: LOCAL TITLE: PSYCHIATRIC EVALUATION & MANAGEMENT STANDARD TITLE: PSYCHIATRY E & M NOTE DATE OF NOTE: SEP 19, 2023@08:20 ENTRY DATE: SEP 19, 2023@08:20:12 AUTHOR: OLU CLIFTON COSIGNER: URGENCY: STATUS: COMPLETED TELEPSYCHIATRIC ([facility]) EVALUATION AND MANAGEMENT FOLLOWUP VISIT Patient verbally consented to video appointment. Start Time: 914 End Time: 939 Patient's current location: At the home address on file. Emergency number: See numbers on file. Physician/Health Care Personnel: Olu Clifton MD Patient seen for 30 minute outpatient visit, with 20 minutes spent in psychotherapy. IDENTIFICATION: MATTHIEU PINTO is a 47 year old seen for follow up ASSESSMENT: MATTHIEU PINTO reports small improvements in depression with ongoing concern for anhedonia and feeling easily overwhelmed. He expresses interest and ASD evaluation given his daughter with autism and recognizing some of his traits. Education regarding adult ASD was provided and he was informed an ASD diagnosis would unlikely change his current management. He completed his community sleep study and notes improved sleep hygiene and adequate sleep overall. RLS symptoms are intermittent and do not regularly impair sleep. SVT symptoms have improved after ablation and he has planned follow-up scheduled. He denies significant substance use, suicidal ideation or safety concerns. Given his concern for ongoing anhedonia and feeling easily overwhelmed as well as previous improvements with escitalopram, increasing escitalopram is appropriate. 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 Patient expressed understanding that they can call me or return for care sooner should they have side effects from medications, an increase in symptoms or other clinical concerns. Chart reviewed since last visit. The following is obtained from the patient and chart review. INTERVAL HISTORY: Since the last visit, MATTHIEU PINTO reports: - General/Mood: a little better depression ebbs and flows, notes anhedonia, feels easily overwhelmed. Interested in ASD diagnosis. - Meds: Good adherence, denies significant side effects - Sleep: Community sleep study completed, more consistent sleep schedule, 6-7 hrs TST. Mild RLS symptoms - Stress: denies significant stressors, manageable childcare stressors - Health: denies health concerns, cardiac ablation completed in 05/2023, 2 episodes of tachycardia without complication that have improved and has follow up scheduled. - Drug/alcohol use: Denies alcohol or illicit substance use - Safety: denies SI or safety concerns TREATMENT HISTORY: 06/09/2023: Sleep medicine referral, increase escitalopram to 10 mg daily 07/25/2023: No changes 09/19/2023: Increase escitalopram to 20 mg daily MEDICATIONS: Active Outpatient Medications (including Supplies): Active Outpatient Medications Status 1) BUPROPION HCL 150MG 24HR SA TAB TAKE THREE TABLETS BY ACTIVE MOUTH EVERY MORNING FOR MOOD 2) ESCITALOPRAM OXALATE 10MG TAB TAKE ONE TABLET BY ACTIVE MOUTH EVERY DAY FOR MOOD 3) SILDENAFIL CITRATE 100MG TAB TAKE ONE TABLET BY MOUTH ACTIVE NEEDED - TAKE 1 HOUR BEFORE ANTICIPATED SEXUAL ACTIVITY--MAXIMUM 6 DOSES FOR 30-DAY SUPPLY. FOR ERECTIONS Active Non-VA Medications Status 1) Non-VA AMPHETAMINE/DEXTROAMPHETAM INE 30MG TAB 30MG ACTIVE MOUTH EVERY DAY 2) Non-VA OMEPRAZOLE 20MG EC CAP 20MG MOUTH EVERY DAY ACTIVE 5 Total Medications ALLERGIES: Patient has answered NKA VITALS: Last Weight:233 lb [105.69 kg] (12/27/2022 12:51) BMI (if available): 30.8 Last blood pressure: 127/86 (12/27/2022 12:51) Last Pulse: 91 (12/27/2022 12:51) Recent Labs: CREATININE____ TSH ____ HEMOGLOBIN A1C____ GLUCOSE____ CHOLESTEROL____ SGOT____ SGPT____ GAMMA GTP____ WBC____ PLT ____ Drug levels (if relevant): LITHIUM____ VALPROIC ACID____ CARBAMAZEPINE____ PSYCHIATIC EXAMINATION: -General: Alert, awake, calm, cooperative, appropriately dressed, adequate hygiene. -Gait: Ambulatory without assistance. -Orientation: Alert to person, place and time. -Cognition/Memory: Intact, no evidence of memory problems -Eye Contact: Good -Psychomotor Activity: Normal. -Abnormal Involuntary Movements: Absent. -Speech: Normal rate and rhythm, coherent. -Mood: A little better -Affect: Mood congruent, intensity normal. -Thought Process/Content: [...] testing, connected to providers, no hx of SAs, care for children - Assessment: Acute risk: low Chronic Risk: low - Attending appointments, following recommendations, and compliant with prescribed psychiatric meds /es/ Olu Clifton MD Staff Psychiatrist Signed: 09/19/2023 09:42 OLU CLIFTON [facility]
--- OUTSIDE RECORDS SUMMARY | 2024-01-14 12:50 | XMS_ITS | Clinical Summary ---
Author Organization [facility] [facility] Address [place], [place] [address] Care Team Providers Care Rand Sewer Name Role Phone Ciic Hartley DO Primary Care Provider [phone] Allergies Active Allergy Reactions Criticality Noted Date [...] needed (seasonal allergies). 02/23/2022 Active rizatriptan (MAXALT FABRIC COATING SUPERVISOR) 10 mg disintegrating tablet Take 10 mg [...] weeks post ablation, then discontinue. 06/21/2023 Active dextroamphetamine-amph etamine (ADDERALL XR) 30 mg Extended-Release capsuleIndications:Att ention deficit hyperactivity disorder (ADHD), combined type Take 1 Capsule (30 mg) by mouth once daily. 30 Capsule 12/07/2023 Active dextroamphetamine-amph etamine (Adderall XR) 30 mg Extended-Release capsuleIndications:Att ention deficit hyperactivity disorder (ADHD), combined type Take 1 Capsule (30 mg) by mouth once daily. 30 Capsule 11/06/2023 Active dextroamphetamine-amph etamine (Adderall XR) 20 mg Extended-Release capsuleIndications:Att ention deficit hyperactivity disorder (ADHD), combined type Take 1 Capsule (20 mg) by mouth once daily. 20 Capsule 09/20/2023 Active dextroamphetamine-amph etamine (ADDERALL XR) 30 mg Extended-Release capsuleIndications:Att ention deficit hyperactivity disorder (ADHD), combined type Take 1 Capsule (30 mg) by mouth once daily. 20 Capsule 09/20/2023 Active Active Problems Problem Noted Date Diagnosed Date Paroxysmal atrial tachycardia 06/28/2023 Overview (06/28/2023): Treated with successful ablation 06/20/2023 SVT (supraventricular tachycardia) 06/02/2023 PVC's (premature ventricular contractions) 06/02 PTSD (post-traumatic stress disorder) 02/07/2020 Attention deficit hyperactivity disorder (ADHD) 02/07/2020 Overview (05/15/2021): Adderall XR 30 mg daily Agreement: 11/21/20 UTox: 11/21/20 as expected PRESCHOOL AIDE: 05/15/2021 as expected Episode of recurrent major depressive disorder 1 Mild TBI (traumatic brain injury) 01/07/2020 Overview (01/07/2020): 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 Immunizations Name Administration Dates Next Due AMB Influenza, IIV4 PF (=>6 mos Flulaval,Fluzone Fluarix)(Flu Clinic Only) 02/04/2020 Anthrax Vaccine 05/15/2013, 1,01/10/2008,02/25,08/22/2006,07/19/2006,06/07/2005 COVID-19 vaccine (Advanced Cooling Therapy NTech 30mcg/0.3mL) PF, MDV 03/26/2021,06/15/2020,05/25/2020 Hepatitis A (Adult) 11/25/1997,01/04/1997 Hepatitis B (Adult) 06/19/1999,12/23/1997,1997 Influenza Virus, Unspecified 01/14/2021, 01/25/2019,12/27/2016,01/21,01/09/2013,09/29/2010 Influenza, IIV4 02/23/2022 Influenza, Whole Virus 02/26/2004 Influenza,LAIV4 Live Intrana patrick (Flumist) 02/03/2015,01/26/2012 Indonesian Encephalitis 07/15/2003,06/10/2003,05/12 MMR 01/04/1997 MMR, Unspecified 05/15/2013 Meningococcal Vaccine (Menomune) 12/28/1996 Oral Polio Vaccine 01/04/1997 Rabies Vaccine 07/30/2003,06/10/2003,05/30/2003 Smallpox (Vaccinia) Live [id number] 02/07/2004 TD, UNSPECIFIED 09/10/2016 Td (Age >=7 [...] Sex Assigned at Male 05/20/2021 8:39 PM READING TUTOR Gender Identity Male 05/20/2021 8:39 PM READING TUTOR Sexual Orientation Straight 05/20/2021 8: 39 PM READING TUTOR Obstetrics History Last Filed Vital Signs Vital [...] 77 2022 COVID-19 vaccine series ( season) 2023 03/26/2021, 06/15/2020, 05/25/2020 Influenza for age 9-49 [...] Procedure Name Priority Date/Time Associated Diagnosis Comments ANTI HCV Routine 11/17/2021 10:34 AM CDT Encounter for hepatitis C screening test for low risk patient LIPID PANEL W REFLEX MEASURED LDL Routine 11/17/2021 10:34 AM CDT Screening for lipid disorders from Last 3 Months or Most Recently Relevant to Health Maintenance Results * (ABNORMAL) LIPID PANEL W REFLEX MEASURED LDL (11/17/2021 10:34 AM CDT) CHOLESTEROL,TOTAL 216(H) 100 - 199 mg/dL 11/17/2021 6:34 PM CDT [facility] TRIGLYCERIDES 98 <150 mg/dL 11/17/2021 6:34 PM CDT [facility] HDL CHOLESTEROL 46 >40 mg/dL 6:34 PM CDT [facility] NON-HDL CHOLESTEROL 170(H) <145 mg/dl 11/17/2021 6:34 PM CDT [facility] CHOL/HDL RATIO 4.70(H) <4.50 11/17/2021 6:34 PM CDT [facility] LDL CHOLESTEROL 150(H) <=130 mg/dL 11/17/2021 6:34 PM CDT [facility] VLDL CHOLESTEROL 20 <=30 mg/dL 11/17/2021 6:34 PM CDT [facility] PROVIDER ORDERED STATUS RANDOM 11/17/2021 6:34 PM CDT [facility] Blood BLOOD SPECIMEN / Unknown Venipuncture / Unknown 11/17/2021 10:34 AM CDT 11/17/2021 10:34 AM CDT Cici Quintanamatt JOINER CHEMISTRY [facility] [address] [place] [address], * ANTI HCV (11/17/2021 10:34 AM CDT) HEPATITIS C ANTIBODY Non-React mi Non-React mi 11/17/2021 6:31 PM CDT [facility] Comment:Antibodies to HCV no t detected; does not exclude the possibility of exposure to HCV. Blood BLOOD SPECIMEN / Unknown Venipuncture / Unknown 11/17/2021 10:34 AM CDT 11/17/2021 10:34 AM CDT Cicialtagracia Esquivel Odilia JOINER SEND OUTS [facility] [address] [place] [address], from Last 3 Months or Most Recently Relevant to Health Maintenance Advance Directives * Full Code (Latest Code Status on File) Date Activated Date Inactivated Comments 06/20/2023 5:07 PM 06/21/2023 1:32 PM Question Answer Comments Code Status Discussion: Other Care Teams Rand Sewer Relationship Specialty Start Date End Date Cici Hartley DO [address] [place] [address] PCP - General Family Practice 06/18/20
--- OUTSIDE RECORDS SUMMARY | 2024-01-14 12:50 | XMS_ITS | Encounter Summary ---
Author Name [facility] [place] [facility] [place] [place] Address [address] [place] [id number] Care Team Providers Care Marketing Data Specialist Name Role Phone JOHN CESAR Primary Care Provider Unavailabl e Selected Encounter This section includes the information on record at [place] for the Encounter. Date/Time Encounter Type Encounter Description Reason Provider Source Jun 09, 2023 10:15 AM OFFICE O/P EST MOD 30 MIN [facility] - IND ICD-10-CM F43.12 Post-traumatic stress disorder, chronic SOLIS CLIFTON Derik Encounter Template Text not used by [place] Assessments - Encounter Diagnoses This section includes the primary and secondary diagnoses documented for the Encounter. Date/Time Primary/Secondary Diagnosis Diagnosis Name Provider Source Jun 09, 2023 12:08 PM PRIMARY Post-traumatic stress disorder, chronic SIVAKUMAR CLIFTON [facility] Jun 09, 2023 12:08 PM SECONDARY Attn-defct hyperactivity disorder, predom inattentive type SIVAKUMAR CLIFTON [facility] Jun 09, 2023 12:08 PM SECONDARY Major depressive disorder, recurrent, unspecified SIVAKUMAR CLIFTON [facility] Plan of Treatment: Future Appointments (+ 6 months) and Future Tests (+/- 45 days) The Plan of Treatment section includes future care activities for the patient from all [place] [facility]. This section includes future appointments and future orders which are active, pending or scheduled. Future Appointments This section includes appointments that were scheduled to occur 6 months from the date of the Encounter, up to a maximum of 20 appointments. The data comes from all [place] treatment facilities. Appointment Date/Time Appointment Type Appointme nt Facility Name Jul 25, 2023 10:15 AM AMBULATORY - PSYCHIATRY [facility] August 22, 2023 09:00 PM AMBULATORY - NONE [facility] Sep 19, 2023 09:15 AM [place] [facility] Nov 22, 2023 03:45 PM AMBULATORY - [place]IATRY [facility] Social History: Smoking Status (Most current) and Tobacco Use (All prior to encounter date) This section includes the most current, and the historical, smoking and tobacco- related health factors from the [place] facility where the Encounter took place. Current Smoking Status This section includes the most current smoking, or tobacco-related health factor, from the [place] facility where the Encounter took place. Date/Time Current Smoking Status Comment Facil ity Dec 27, 2022 01:00 PM VA-TOBACCO FORMER USER [facility] Tobacco Use History This section includes a history of the smoking, or tobacco-related health factors, that were collected on or before the date of the Encounter. The data comes from the [facility] where the Encounter took place. Date/Time Smoking Status/Tobacco Use Comment F acility Dec 27, 2022 01:00 PM VA-TOBACCO QUIT 15 YRS OR MORE [facility] Feb 23, 2022 09:30 AM VA-TOBACCO FORMER USER [facility] Feb 23, 2022 09:30 AM VA-TOBACCO QUIT 15 YRS OR MORE [facility] Jan 14, 2021 11:00 AM VA-TOBACCO NEVER USED [facility] Jun 13, 2019 12:54 PM VA-TOBACCO FORMER USER [facility] Jun 13, 2019 12:54 PM VA-TOBACCO QUIT 5 TO < 15 YRS [facility] Jun 13, 2018 08:51 AM VA-TOBACCO FORMER USER [facility] Jun 13, 2018 08:51 AM VA-TOBACCO QUIT 5 TO < 15 YRS [facility] Encounter Notes: All associated encounter notes This [...] encouraged to reengage with supportive therapy at [facility] when amenable. No other changes indicated. 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 CBT for PTSD- small benefit --------- SOCIAL HISTORY (From interview and chart review): -Early history: Born in [place] and grew up in [place], pretty good childhood, mother with MS, some stress from siblings getting in trouble -Social supports/Recreation: close with family, 1 close friend -Partner/Children: Divorce, 16 yrs, 2 children ages 14 and 10 -Current living situation: [place] in home with and kids -Educational History: Poor student, no discipline issues, associates degree and BA in [employer]. 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 PAST MEDICAL/SURGICAL HISTORY: Depression ([facility] [id number]) Posttraumatic stress disorder ([facility] [id number]) Migraine ([facility] [id number]) Erectile dysfunction ([facility] [id number]) Seasonal allergic rhinitis ([facility] [id number] ([facility] [id number]) Family social history ([facility] [id number]) ALLERGIES: Patient has answered NKA MEDICATION RECONCILIATION: [...] Intact -Attention: Intact. Suicide Screen: C-SSRS Screening [place]-Suicide Severity Rating Scale (C-SSRS Screener) 1. Over [...] Staff Psychiatrist Signed: 06/09/2023 12:08 OLU CLIFTON [facility]
--- OUTSIDE RECORDS SUMMARY | 2024-01-14 12:50 | XMS_ITS | Encounter Summary ---
Author Name [facility] [place] Organization [facility] [place] Address [address] [place] [address] Care Team Providers Care Auto Bumper Straightener Name Role Phone JOHN CESAR Primary Care Provider Unavailabl e Selected Encounter This section includes the information on record at [place] for the Encounter. Date/Time Encounter Type Encounter Description Reason Provider Source Jul 25, 2023 10:15 AM OFFICE O/P EST MOD 30 MIN [facility] ICD-10-CM F43.12 Post-traumatic stress disorder, chronic SOLIS CLIFTON Derik Encounter Template Text not used by [place] Assessments - Encounter Diagnoses This section includes the primary and secondary diagnoses documented for the Encounter. Date/Time Primary/Secondary Diagnosis Diagnosis Name Provider Source Jul 25, 2023 10:38 AM PRIMARY Post-traumatic stress disorder, chronic SIVAKUMAR CLIFTON [facility] Jul 25, 2023 10:38 AM SECONDARY Attn-defct hyperactivity disorder, predom inattentive type SIVAKUMAR CLIFTON [facility] Jul 25, 2023 10:38 AM SECONDARY Major depressive disorder, recurrent, unspecified SIVAKUMAR CLITFON [facility] Plan of Treatment: Future Appointments (+ 6 months) and Future Tests (+/- 45 days) The Plan of Treatment section includes future care activities for the patient from all [place] treatmentfacilities. This section includes future appointments and future orders which are active, pending or scheduled. Future Appointments This section includes appointments that were scheduled to occur 6 months from the date of the Encounter, up to a maximum of 20 appointments. The data comes from all [place] treatment facilities. Appointment Date/Time Appointment Type Appointme nt Facility Name August 22, 2023 09:00 PM AMBULATORY - NONE [facility] Sep 19, 2023 09:15 AM AMBULATORY - PSYCHIATRY [facility] Nov 22, 2023 03:45 PM AMBULATORY - PSYCHIATRY [facility] Social History: Smoking Status (Most current) and Tobacco Use (All prior to encounter date) This section includes the most current, and the historical, smoking and tobacco- related health factors from the [facility] where the Encounter took place. Current Smoking Status This section includes the most current smoking, or tobacco-related health factor, from the [place] facility where the Encounter took place. Date/Time Current Smoking Status Comment Mellissa aleman Dec 27, 2022 01:00 PM VA-TOBACCO FORMER USER [facility] Tobacco Use History This section includes a history of the smoking, or tobacco-related health factors, that were collected on or before the date of the Encounter. The data comes from the [facility] where the Encounter took place. Date/Time Smoking Status/Tobacco Use Comment F kala Dec 27, 2022 01:00 PM VA-TOBACCO QUIT 15 YRS OR MORE [facility] Feb 23, 2022 09:30 AM VA-TOBACCO FORMER USER [facility] Feb 23, 2022 09:30 AM VA-TOBACCO QUIT 15 YRS OR MORE [facility] Jan 14, 2021 11:00 AM VA-TOBACCO NEVER USED [facility] Jun 13, 2019 12:54 PM VA-TOBACCO FORMER USER [facility] Jun 13, 2019 12:54 PM VA-TOBACCO QUIT 5 TO < 15 YRS [facility] Jun 13, 2018 08:51 AM VA-TOBACCO FORMER USER [facility] Jun 13, 2018 08:51 AM VA-TOBACCO QUIT 5 TO < 15 YRS [facility] Encounter Notes: All associated encounter notes This section contains the clinical notes associated to the Encounter. Date/Time Encounter Note(s) Provider Source Jul 25, 2023 10:04 AM PSYCHIATRY E & M NOTE: LOCAL TITLE: PSYCHIATRIC EVALUATION & MANAGEMENT STANDARD TITLE: PSYCHIATRY E & M NOTE DATE OF NOTE: JUL 25, 2023@10:04 ENTRY DATE: JUL 25, 2023@10:04:56 AUTHOR: OLU CLIFTON COSIGNER: URGENCY: STATUS: COMPLETED [...] excessive daytime sleepiness. He has a [facility] sleep [facility] referral pending. 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
--- OUTSIDE RECORDS SUMMARY | 2024-01-14 12:50 | XMS_ITS | Encounter Summary ---
Author Name [facility] Organization [facility] [place] Address [address] [place] [id number] Care Team Providers Care Nursery Helper Name Role Phone JOHN CESAR Primary Care Provider Unavailabl e Selected Encounter This section includes the information on record at [place] for the Encounter. Date/Time Encounter Type Encounter Description Reason Pro vider Source Nov 22, 2023 03:45 PM Outpatient Encounter [facility] Encounter Template Text not used by [place] Social History: Smoking Status (Most current) and Tobacco Use (All prior to encounter date) This section includes the most current, and the historical, smoking and tobacco- related health factors from the [place] facility where the Encounter took place. Current Smoking Status This section includes the most current smoking, or tobacco-related health factor, from the [place] facility where the Encounter took place. Date/Time Current Smoking Status Comment Mellissa aleman Dec 27, 2022 01:00 PM VA-TOBACCO FORMER USER [facility] Tobacco Use History This section includes a history of the smoking, or tobacco-related health factors, that were collected on or before the date of the Encounter. The data comes from the [place] facility where the Encounter took place. Date/Time Smoking Status/Tobacco Use Comment F kala Dec 27, 2022 01:00 PM VA-TOBACCO QUIT 15 YRS OR MORE [facility] Feb 23, 2022 09:30 AM VA-TOBACCO FORMER USER [facility] Feb 23, 2022 09:30 AM VA-TOBACCO QUIT 15 YRS OR MORE [facility] Jan 14, 2021 11:00 AM VA-TOBACCO NEVER USED [facility] Jun 13, 2019 12:54 PM VA-TOBACCO FORMER USER [facility] Jun 13, 2019 12:54 PM VA-TOBACCO QUIT 5 TO < 15 YRS [facility] Jun 13, 2018 08:51 AM VA-TOBACCO FORMER USER [facility] Jun 13, 2018 08:51 AM VA-TOBACCO QUIT 5 TO < 15 YRS [facility] Encounter Notes: All associated encounter notes This section contains the clinical notes associated to the Encounter. Date/Time Encounter Note(s) Provider Source Nov 22, 2023 04:02 PM NO SHOW NOTE: LOCAL TITLE: NO SHOW/CANCELLATION CLINIC NOTE STANDARD TITLE: NO SHOW NOTE DATE OF NOTE: NOV 22, 2023@16:02 ENTRY DATE: NOV 22, 2023@16:02:07 AUTHOR: OLU CLIFTON EXP COSIGNER: URGENCY: STATUS: COMPLETED NO SHOW/CANCELLATION CLINIC NOTE Has ADDENDA Patient did not present for today's [facility] appt or answer phone for today's appointment. I called patient at number listed on CPRS twice, no answer, left message for patient to contact clinic and reschedule appointment and that someone from the clinic would reach out to reschedule. Record was reviewed. I have not met patient, risk assessment taken from most recent MH notes in CPRS. - Risks: male, MH dx, hx etoh use disorder, significant blast exposures - Protective Factors: denies SI, support from spouse/family, has social support, spiritual yasmine, stable financial/living situation, no elevated etoh/substance use, future-oriented, intact reality testing, connected to MH providers, no hx of SAs, care for children - Assessment: Acute risk: low Chronic Risk: low - Attending MH appointments, following recommendations, and compliant with prescribed psychiatric medsg recommendations, and compliant with prescribed psychiatric meds. Plan Based on Clinician Judgment of Risk: - 3 outreach attempts per protocol: - Phone call to patient made today. - Please send letter regarding no-show today. - help desk specialist staff to contact patient for 2nd and 3rd phone outreach attempt if needed. /sania/ Olu Clifton MD Staff Psychiatrist Signed: 11/22/2023 16:02 Receipt Acknowledged By: 11/23/2023 09:59 /sania/ MARCO A URBINA 11/23/2023 ADDENDUM STATUS: COMPLETED 1st Attempt- Made by Provider. 2nd Attempt- [facility] sent a no show letter on ((11/22)). Alerting [facility] to make remaining outreach. Please addendum this note for documentation. If there is no further contact from the [facility] will be dispositioned on ((12/06)). /sania/ MARCO A URBINA Signed: 11/23/2023 10:00 11/24/2023 ADDENDUM STATUS: COMPLETED 3rd Attempt- Called [facility] to (re)schedule appointment with provider. No answer, LVM to call [phone]. /siva URBINA Signed: 11/24/2023 09:04 11/25/2023 ADDENDUM STATUS: COMPLETED 4th Attempt- Called to (re)schedule appointment with provider. No answer, LVM to call ( ). No further attempts will be made to contact [facility]. /sania/ MARYAM MORENO Tiltrotor Crew Chief Signed: 11/25/2023 12:11 OLU CLIFTON [facility]
--- OUTSIDE RECORDS SUMMARY | 2024-01-14 12:50 | XMS_ITS | Continuity of Care Document ---
Author Name [facility] Organization [facility] Care Team Providers Care Go Go Dancer Name Role Phone [facility] Unavailable Unavailable Problems Combined list of problems from Department of Defense and Veterans Affairs facilities. It does not include entries that were removed or entered in error. Problem Status Onset Date Problem Type Date of Resolution Comments Source Exposure to potentially hazardous substance ([facility] [id number]) Active 06/16/19 24 Condition Jun 16, 2023 Entered By: HOLLAND LOPEZ Comment: [facility] [employer] LOAN Documentation Initiative [facility] Pain in left ankle and joints of left foot Active 08/31/19 17 Condition [facility] Allergic rhinitis Active Condition 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 2 kids.Dec 27, 2022 Entered By: JOHN CESAR Comment: M Aunt w SLE, Mother w MS. +moms side w autoimmune disease. MGF CVA. Dad + depression. 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 [place]ed [place]2020 Entered By: JOHN CESAR Comment: Quit smoking 2009. Over 100 cig/lifetime. No etoh. [facility] Migraine Active Condition [facility] Osteoarthritis Active Condition [facility] Osteoarthritis Active Condition Jun 102018 Entered By: PASCUAL TROTTER Comment: hands [facility] Pes planus Active Condition Feb 01 Entered By: CLAUDIA MUNROE Comment: bilateral, appears to cause left ankle pains [facility] Posttraumatic stress disorder Active Condition [facility] Primary erectile dysfunction Active Condition [facility] Seasonal allergic rhinitis Active Condition [facility] Spasm of bladder Active Condition [facility] Strain of tendon of foot and ankle Active Condition [facility] skin disorders appendage hair follicle folliculitis Inactive [...] abx are complete. No shaving waiver needed. [facility] migraine headache Active Condition [place] [facility]: - Diagnosis based on chief [...] preceptor - Patient verbalized agreement and understanding [facility] no psychiatric diagnosis or condition on axis I Inactive Condition [facility] Need For Prophylactic Measure Inactive Condition [facility] visit for: issue medical certificate Inactive Condition [facility] assessment of patient condition work status Active Condition [facility] deviated nasal septum Active Condition [facility] lateral epicondylitis (tennis elbow) left Active Condition [facility] visit for: issue medical certificate fitness Inactive Condition [facility] visit for: issue repeat prescription for medication Inactive Condition [facility] pharyngitis Inactive Condition [facility] upper respiratory infection Inactive Condition [facility] axis V global assess of functioning (GAF) scale ___ (100-0) Active Condition [facility] psychiatric diagnosis or condition deferred on axis II Active Condition [facility] Administrative Evaluation Services Inactive Condition [facility] male erectile disorder Active Condition [facility] prostatitis Active Condition [facility] bladder disorders Active Condition [facility] assess patient condition work-related occupational disease Active Condition [facility] conditions influencing health status Active Condition [facility] visit for: screening exam traumatic brain injury Active Condition [facility] visit for: examination of subpopulation Active Condition [facility] urethritis Inactive Condition [facility] pain during urination (dysuria) Active Condition [facility] urinary tract infection Inactive Condition [facility] visit for: services physical pre-deployment Active Condition [facility] tendonitis Active Condition [facility] joint pain, localized in the wrist Active Condition [facility] tenosynovitis de Quervain's Inactive Condition Do[facility] rhythm disorder Active Condition [facility] primary snoring Active Condition [facility] post-traumatic stress disorder Active Condition [facility] visit for: occupational health / fitness exam [...] vs. other. Patient concerned for TBIReferring to [facility] for ongoing eval and mgmtNeed assessment for WWQ statusAt risk for PTSD? At risk for TBI[31yo AD male with chronic major depression on Wellbutrin and Celexa, ambien and prn xanax -- requesting psychiatry eval for ongoing eval and tx -- assess and comment on WWQ status.] [facility] closed fracture distal phalanx 2nd finger Inactive Condition [facility] primary insomnia Inactive Condition [facility] allergic rhinitis Active Condition [facility] sciatica Inactive Condition [facility] Patient Counseling: Active Condition Do[facility] insomnia Active Condition history of insomnia has done well on this med in the past, needs refill DoD depression Active Condition history o f depression and anxiety, not suicidal or homicidal recently pcs'd needs refill of meds, will temp refill as this is an acute sick call slot, patient will make a routine appt with his PCM [facility] visit for: screening exam depression Inactive Condition [facility] lateral epicondylitis (tennis elbow) right Inactive Condition [facility] prn. ice. handout. discussed dx and rehab today. [facility] visit for: services physical Active Condition [facility] visit for: administrative purpose Inactive Condition Patient received all post deployment couseling as required [facility] visit for: services flight physical Inactive Condition [facility] astigmatism regular Active Condition [facility] refractive error - myopia Active Condition [facility] alcohol abuse Active Condition [facility] Diagnosis: ICD-10-CM F43.12 Post-traumatic stress disorder, chronic Active Diagnosis [facility] Diagnosis: ICD-10-CM F33.9 Major depressive disorder, recurrent, unspecified Active Diagnosis [facility] Diagnosis: ICD-10-CM 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 Medication Details Route Status Patient Instructions Prescription Expires Prescription Number Last Dispense Date Ordering Provider Order Date Order Qty Source AMPHETAMINE /DEXTROAMPH ETAMINE 30MG TAB TAKE ONE TABLET BY MOUTH EVERY DAY ORAL ACTIVE SAM CESAR F 2020 [facility] BUPROPION HCL 150MG 24HR TAB,SA TAKE THREE TABLETS BY MOUTH EVERY MORNING FOR MOOD ORAL ACTIVE 06/09/2024 [id number] 4 Neda CHESTER T 2023 270 [facility] BUPROPION HCL 150MG 24HR TAB,SA TAKE THREE TABLETS BY MOUTH EVERY MORNING FOR MOOD ORAL DISCONT INUED 04/20/2024 [id number] 4 Neda CHESTER T 2023 270 [facility] BUPROPION HCL 150MG 24HR TAB,SA TAKE THREE TABLETS BY MOUTH EVERY MORNING FOR MOOD ORAL 02/18/2023 [id number] MATTHIEU SALAS 2021 270 [facility] DEXTROAMPHE TAMINE-AMPH ET ER (dextroamph etamine sulf-saccha rate/amphet amine sulf-aspart ate), 20 MG, CAP ER 24H, ORAL, [employer], 100 ea. BOTTLE Active [id number] 2023 14 Pharmac y Data Transac tion Service Facilit y DEXTROAMPHE TAMINE-AMPH ET ER (dextroamph etamine sulf-saccha rate/amphet amine sulf-aspart ate), 30 MG, CAP ER 24H, ORAL, [employer], 100 ea. BOTTLE Active [id number] 2023 20 Pharmac y Data Transac tion Service Facilit y DEXTROAMPHE TAMINE-AMPH ET ER (dextroamph etamine sulf-saccha rate/amphet amine sulf-aspart ate), 30 MG, CAP ER 24H, ORAL, [employer], 100 ea. BOTTLE Cancele d [id number] : 2023 0 Pharmac y Data Transac tion Service Facilit y DEXTROAMPHE TAMINE-AMPH ET ER (dextroamph etamine sulf-saccha rate/amphet amine sulf-aspart ate), 30 MG, CAP ER 24H, ORAL, [employer], 100 ea. BOTTLE Active [id number] 2023 30 Pharmac y Data Transac tion Service Facilit y DEXTROAMPHE TAMINE-AMPH ET ER (dextroamph etamine sulf-saccha rate/amphet amine sulf-aspart ate), 30 MG, CAP ER 24H, ORAL, [employer], 100 ea. BOTTLE Active [id number] 2023 30 Pharmac y Data Transac tion Service Facilit y DEXTROAMPHE TAMINE-AMPH ET ER (dextroamph etamine sulf-saccha rate/amphet amine sulf-aspart ate), 30 MG, CAP ER 24H, ORAL, [employer], 100 ea. BOTTLE Active [id number] 2023 10 Pharmac y Data Transac tion Service Facilit y ESCITALOPRA M OXALATE 10MG TAB TAKE ONE TABLET BY MOUTH EVERY DAY FOR MOOD ORAL DISCONT INUED (EDIT) 07/25/2024 [id number] 4 Neda CHESTER T 2023 90 [facility] ESCITALOPRA M OXALATE 10MG TAB TAKE ONE TABLET BY MOUTH EVERY DAY FOR MOOD ORAL DISCONT INUED (EDIT) 09/07/2023 [id number] 4 Neda CHESTER T 2023 90 [facility] ESCITALOPRA M OXALATE 20MG TAB TAKE ONE TABLET BY MOUTH EVERY DAY FOR MOOD ORAL ACTIVE 09/19/2024 [id number] 4 Neda CHESTER T 2023 90 [facility] ESCITALOPRA M OXALATE 5MG TAB TAKE ONE TABLET BY MOUTH AT BEDTIME FOR DEPRESSI ON ORAL 05/26/2023 [id number] RENARDLATHAANAMATTHIEU Torres Casandra 2022 90 [facility] LORATADINE 10MG TAB TAKE ONE TABLET BY MOUTH EVERY DAY NEEDED FOR ALLERGIE S ORAL 02/24/2023 [id number] SAM CESAR Jose Cruz 2021 90 [facility] METOPROLOL SUCCINATE (METOPROLOL SUCCINATE), 25 MG, TAB ER 24H, ORAL, [facility], 500 ea. BOTTLE Cancele d [id number] : 2023 0 Pharmac y Data Transac tion Service Facilit y METOPROLOL SUCCINATE (METOPROLOL SUCCINATE), 25 MG, TAB ER 24H, ORAL, [facility], 500 ea. BOTTLE Active [id number] 2023 120 Pharmac y Data Transac tion Service Facilit y OMEPRAZOLE 20MG CAP,EC TAKE 1 CAPSULE BY MOUTH EVERY DAY ORAL ACTIVE SAM CESAR 2022 [facility] SILDENAFIL CITRATE 100MG TAB TAKE ONE TABLET BY MOUTH NEEDED - TAKE 1 HOUR BEFORE ANTICIPA TISHA SEXUAL ACTIVITY --MAXIMU M 6 DOSES FOR 30-DAY SUPPLY. FOR ERECTION S ORAL 12/28/2023 [id number] SAM CESAR Jose Cruz 2022 18 [facility] Allergies, Adverse Reactions, Alerts Combined list of allergies from Department of Defense and Veterans Affairs facilities. It does not include entries that were removed or entered in error. Substance Category Reaction Severity Reaction type Status Date Reported Comments Source [facility]AG[facility] Propensity to adverse reaction (finding) Itching of eye active [address] [facility]AG[facility] {Cla } Allergy to substance (disorder) Unknown active 3 [employer] Immunizations Combined list of available immunizations from the Department of Defense and Veterans Affairs facilities. Immunization Series Date Given Administered By Site Reaction Lot Number CVX Code Drug Manager Council Status Comments Source INFLUENZA, INJECTABLE, QUADRIVALENT, PRESERVATIVE FREE 2021 150 complet ed [facility] TDAP 2021 115 complet ed [facility] COVID-19 (PFIZER), MRNA, LNP-S, PF, 30 MCG/0.3 ML DOSE 3 2020 208 complet ed PFR; [id number]; 2 [facility] INFLUENZA, INJECTABLE, QUADRIVALENT, PRESERVATIVE FREE 2020 150 complet ed [facility] COVID-19 (PFIZER), MRNA, LNP-S, PF, 30 MCG/0.3 ML DOSE 2 2020 208 complet ed PFR; [id number]; 1 [facility] COVID-19 ([facility]), MRNA, LNP-S, PF, 30 MCG/0.3 ML DOSE 1 2020 208 complet ed PFR; [id number]; 1 [facility] INFLUENZA, INJECTABLE, QUADRIVALENT, PRESERVATIVE FREE 2019 150 complet ed [facility] INFLUENZA, SEASONAL, INJECTABLE, PRESERVATIVE FREE 2018 140 complet ed [facility] Influenza, injectable, Madin Sunshine Canine Kidney, quadrivalent with preservative 1 2016 [id number] Seqirus (SEQ) comple t ed Influenza , injectabl e, Madin Lana Canine Kidney, quadrival ent with preservat mi DoD TD(ADULT) UNSPECIFIED FORMULATION 2016 139 complet ed [facility] tetanus and diphtheria toxoids, adsorbed, preservative free, for adult use (2 Lf of tetanus toxoid and 2 Lf of diphtheria toxoid) 3 2016 [id number] 09 Sanofi Pasteur ([facility]) complet ed tetanus and diphtheri a toxoids, adsorbed, preservat mi free, for adult use (2 Lf of tetanus toxoid and 2 Lf of diphtheri a toxoid) DoD Influenza, seasonal, injectable 0 2015 [id number] 141 Se[employer] (SEQ) complet ed Influenza , seasonal, injectabl e DoD influenza, live, intranasal, quadrivalent 1 2014 [id number] 149 MedImmune, Inc. (MED) complet ed influenza , live, intranasa l, quadrival ent DoD influenza, live, intranasal, quadrivalent 18 2013 [id number] 149 MedImmune, Inc. (MED) complet ed influenza , live, intranasa l, quadrival ent DoD measles, mumps and rubella virus vaccine 2 2013 [id number] 03 Merck (MSD) complet ed measles, mumps and rubella virus vaccine DoD anthrax vaccine 6 2013 [id number] 24 [facility] complet ed anthrax vaccine DoD typhoid Vi capsular polysaccharid e vaccine 8 2013 [id number] 101 Sanofi Pasteur ([facility]) complet ed typhoid Vi capsular polysacch aride vaccine DoD Influenza, seasonal, injectable, preservative free 17 2012 [id number] 140 [employer]Pad. (NOV) complet ed Influenza , seasonal, injectabl e, preservat mi free DoD influenza virus vaccine, live, attenuated, for intranasal use 17 2011 [id number] 111 [employer]. (MED) complet ed influenza virus vaccine, live, attenuate d, for intranasa l use DoD tuberculin skin test; purified protein derivative solution, intradermal 6 2011 Unknown, Provider [id number] 96 Sanofi Pasteur ([facility]) complet ed tuberculi n skin test; purified protein derivativ e solution, intraderm al DoD Influenza, seasonal, injectable, preservative free 1 2010 140 Transcribed (TRS) complet ed Influenza , seasonal, injectabl e, preservat mi free DoD influenza virus vaccine, split virus (incl. purified surface antigen)-reti red CODE 1 2010 [id number] 15 [facility] [employer] (CS) complet ed influenza virus vaccine, split virus (incl. purified surface antigen)- retired CODE DoD anthrax vaccine 5 2010 [id number] [address] [facility] ([facility]) complet ed anthrax vaccine DoD typhoid Vi capsular polysaccharid e vaccine 1 2010 [id number] 101 Sanofi Pasteur ([facility]) complet ed typhoid Vi capsular polysacch aride vaccine DoD anthrax vaccine 5 2007 [id number] 24 [facility] ([facility]) complet ed anthrax vaccine DoD typhoid Vi capsular polysaccharid e vaccine 1 2007 [id number] 101 Sanofi Pasteur ([facility]) complet ed typhoid Vi capsular polysacch aride vaccine DoD influenza virus vaccine, live, attenuated, for intranasal use 1 2007 [id number] 111 [employer] (MED) complet ed influenza virus vaccine, live, attenuate d, for intranasa l use DoD anthrax vaccine 4 2006 [id number] 24 [facility] ([facility]) complet ed anthrax vaccine DoD influenza virus vaccine, live, attenuated, for intranasal use 0 2006 [id number] 111 [facility] (B) complet ed influenza virus vaccine, live, attenuate d, for intranasa l use DoD anthrax vaccine 3 2006 [id number] 24 [facility] ([facility]) complet ed anthrax vaccine DoD tetanus toxoid, reduced diphtheria toxoid, and acellular pertu is vaccine, adsorbed 1 2006 [id number] 115 Sanofi Pasteur ([facility]) complet ed tetanus toxoid, reduced diphtheri a toxoid, and acellular pertussis vaccine, adsorbed DoD anthrax vaccine 1 2006 [id number] 24 [facility] ([facility]) complet ed anthrax vaccine DoD varicella virus vaccine 0 2005 21 () Not Given varicella virus vaccine DoD tuberculin skin test; purified protein derivative solution, intradermal 1 2005 Unknown, Provider [id number] 96 Sanofi Pasteur ([facility]) complet tuberculi n skin test; purified protein derivativ e solution, intraderm al [facility] influenza virus vaccine, live, attenuated, for intranasal use 1 2005 [id number] 111 [employer] (MED) complet ed influenza virus vaccine, live, attenuate d, for intranasa l use DoD anthrax vaccine 1 2005 [id number] 24 [facility] ([facility]) complet ed anthrax vaccine DoD typhoid Vi capsular polysaccharid e vaccine 1 2005 [id number] 101 Sanofi Pasteur ([facility]) complet ed typhoid Vi capsular polysacch aride vaccine DoD influenza virus vaccine, live, attenuated, for intranasal use 1 2004 [id number] 111 [employer] (MED) complet ed influenza virus vaccine, live, attenuate d, for intranasa l use [facility] influenza virus vaccine, split virus (incl. purified surface antigen)-reti red CODE 1 2003 [id number] 15 Sanofi Pasteur ([facility]) complet ed influenza virus vaccine, split virus (incl. purified surface antigen)- retired CODE [facility] influenza virus vaccine, whole virus 0 2003 [id number] 16 Sanofi Pasteur ([facility]) complet ed influenza virus vaccine, whole virus DoD vaccinia (smallpox) vaccine 0 2003 [id number] 75 [employer] (WAL) complet ed vaccinia (smallpox ) vaccine DoD typhoid vaccine, parenteral, other than acetone-kille d, dried 0 2003 [id number] 41 Sanofi Pasteur ([facility]) complet ed typhoid vaccine, parentera l, other than acetone-k illed, dried DoD tuberculin skin test; purified protein derivative solution, intradermal 1 2003 Unknown, Provider [id number] 96 Teresa () complet ed tuberculi n skin test; purified protein derivativ e solution, intraderm al [facility] rabies vaccine, for intramuscular injection RETIRED CODE 3 2003 [id number] 18 [employer] (CON) complet ed rabies vaccine, for intramusc ular injection RETIRED CODE DoD Somali Encephalitis Vaccine SC 3 2003 [id number] 39 Sanofi Pasteur ([facility]) complet ed Somali Encephali tis Vaccine [facility] rabies vaccine, for intramuscular injection RETIRED CODE 2 2003 [id number] 18 [place] (CON) complet ed rabies vaccine, for intramusc ular injection RETIRED CODE [facility] Somali Encephalitis Vaccine SC 2 2003 [id number] 39 Sanofi Pasteur ([facility]) complet ed Somali Encephali tis Vaccine SC [facility] rabies vaccine, for intramuscular injection RETIRED CODE 1 2003 [id number] 18 [place] (CON) complet ed rabies vaccine, for intramusc ular injection RETIRED CODE DoD Somali Encephalitis Vaccine SC 1 2003 [id number] 39 Sanofi Pasteur ([facility]) complet ed Somali Encephali tis Vaccine SC [facility] influenza virus vaccine, whole virus 0 2002 [id number] 16 [employer] (PW) complet ed influenza virus vaccine, whole virus [facility] tuberculin skin test; purified protein derivative solution, intradermal 1 2002 Unknown, Provider 96 () complet ed tuberculi n skin test; purified protein derivativ e solution, intraderm al DoD influenza virus vaccine, whole virus 0 2001 [id number] 16 Sanofi Pasteur ([facility]) complet ed influenza virus vaccine, whole virus DoD tuberculin skin test; purified protein derivative solution, intradermal 1 2001 Unknown, Provider 96 () complet ed tuberculi n skin test; purified protein derivativ e solution, intraderm al DoD typhoid Vi capsular polysaccharid e vaccine 0 2001 [id number] 101 Sanofi Pasteur ([facility]) complet ed typhoid Vi capsular polysacch aride vaccine DoD influenza virus vaccine, whole virus 0 2000 [id number] 16 Merck (MSD) complet ed influenza virus vaccine, whole virus DoD influenza virus vaccine, whole virus 0 2000 [id number] 16 [facility] ([facility]) complet ed influenza virus vaccine, whole virus DoD typhoid vaccine, parenteral, other than acetone-kille d, dried 0 1999 [id number] 41 Merieux (IM) complet ed typhoid vaccine, parentera l, other than acetone-k illed, dried DoD tuberculin skin test; purified protein derivative solution, intradermal 1 1999 Unknown, Provider [id number] 96 [facility] complet ed tuberculi n skin test; purified protein derivativ e solution, intraderm al DoD hepatitis B vaccine, adult dosage 3 1999 [id number] 43 [employer] ([facility]) complet ed hepatitis B vaccine, adult dosage DoD influenza virus vaccine, whole virus 0 1998 [id number] 16 [facility] ([facility] complet ed influenza virus vaccine, whole virus DoD influenza virus vaccine, whole virus 0 [id number] 16 [facility] ([facility]) complet ed influenza virus vaccine, whole virus DoD typhoid vaccine, parenteral, other than acetone-kille d, dried 0 1997 [id number] 41 Merieux (IM) complet ed typhoid vaccine, parentera l, other than acetone-k illed, dried DoD hepatitis B vaccine, adult dosage 2 1997 [id number] 43 [employer] ([facility]) complet ed hepatitis B vaccine, adult dosage DoD yellow fever vaccine 0 [id number] 37 [place] (CON) complet ed yellow fever vaccine DoD hepatitis B vaccine, adult dosage 1 1997 [id number] 43 [employer] (B) complet ed hepatitis B vaccine, adult dosage DoD hepatitis A vaccine, adult dosage 2 1997 [id number] 52 Merck (MSD) complet ed hepatitis A vaccine, adult dosage DoD hepatitis A vaccine, adult dosage 1 1996 [id number] 52 [facility] complet ed hepatitis A vaccine, adult dosage DoD trivalent poliovirus vaccine, live, oral 0 1996 02 () complet ed trivalent polioviru s vaccine, live, oral DoD measles, mumps and rubella virus vaccine 0 1996 03 () complet ed measles, mumps and rubella virus vaccine DoD tetanus and diphtheria toxoids, adsorbed, preservative [...] ed influenza virus vaccine, whole virus DoD meningococcal polysaccharid e vaccine (MPSV4) 0 1996 32 () complet ed meningoco ccal polysacch aride vaccine (MPSV4) DoD Encounters Combined list of: 1) Encounters from Department of Veterans Affairs facilities going back up to thelast 18 months. 2) Encounters from the Department of Defense facilities going back up to 280 months. Location Location Details Encounter Type Encounter Number Reason For Visit Attending Provider ADM Date DC Date Status Disposition Source [facility] Mental Health ([place]) ) OUTPATIENT [id number] DANIEL CHANG 10/16 Released w/o Limitations [facility] Mental [facility] ([place])) [facility] [place]([place] [facility] Mental Health ([place]) ) OUTPATIENT [id number] DANIEL CHANG 10/16 Released w/o Limitations [facility] ([place])) [place] [employer] [facility] ([facility]) ) OUTPATIENT [id number] edema nose bride CLAUDIA MENDEZ 10/16 Released w/o Limitations Jose [facility] [place]([employer] [facility] [employer] ([place])) Jose [facility] Sp[place]([employer] [facility] ([facility]) ) OUTPATIENT [id number] cyst right side of nose. CLAUDIA MENDEZ 10/19 Released w/o Limitations Jose [facility] [place]([employer] Primary [facility] ([place])) Jose [facility] Sp[place]([employer] Opt[facility] ([facility]) ) OUTPATIENT [id number] OMAR Burciaga 02/11 Released w/o Limitations Jose [facility] [place]([employer] Optomet ry Clinic ([place])) Jose [facility] [place] Spicer([employer] [facility] ([facility]) ) OUTPATIENT [id number] [facility] JOHAN SILVA 06/10 Released w/o Limitations Jose [facility] [place]([employer] Flight Medicin e Clinic ([place])) Jose [facility] [place]([employer] Pediatric s Clinic ([facility]) ) OUTPATIENT [id number] 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) OUTPATIENT [id number] FLASH ESTRADA 03/02 Released w/o Limitations Jose [facility] KOJO Wood(Arango t [facility] ER) Jose [facility] [place] Spicer([employer] [facility] ([facility]) ) OUTPATIENT [id number] elbow pain CLAUDIA MENDEZ 03/07 Released w/o Limitations Jose [facility] KOJO Wood([employer] Primary [facility] ([place])) Jose [facility] [place] Spicer([employer] Primary [facility] ([facility]) ) TELE CONSULT [id number] depress MODESTO Machuca Anaya 03/07 Jose [facility] [place] Wood([employer] Primary [facility] ([place])) Jose [facility] KOJO Spicer([place] n B Primary Care ([facility]) ) OUTPATIENT [id number] michaela frausto per life skills CLAUDIA MENDEZ 03/08 Released w/o Limitations Jose [facility] KOJO Slade([employer] Primary [facility] ([place])) Jose [facility] KOJO Spicer([place] n B Primary Care ([facility]) ) OUTPATIENT [id number] f/u meds CLAUDIA MENDEZ 05/25 Released w/o Limitations Jose [facility] KOJO Slade([employer] Primary [facility] ([place])) Jose [facility] KOJO Spicer([employer] [facility] ([facility]) ) TELE CONSULT [id number] ?? re: GRIS Rodriguez 06/23 Jose [facility] KO[place] Wood([employer] Flight Medicin e Clinic ([place])) Jose [facility] KOJO Spicer([place] n B Primary Care ([facility]) ) OUTPATIENT [id number] f/u sleep disturb ances CLAUDIA MENDEZ 06/28 [facility]ased w/o Limitations [facility]([employer] Primary [facility] ([place])) [facility] [place](Hear ing Conservat ion [place]) OUTPATIENT [id number] FRANCY Mitchell 07/19 Released w/o Limitations [facility] [place](He aring Conserv ation [employer]) [place]([employer] [facility] ([place]) ) OUTPATIENT [id number] shoulde r pain/ swollen gland CLAUDIA Goff 08/31 Released w/o Limitations Jose [facility] [place] Wood([employer] Primary [facility] ([place])) [facility] OUTPATIENT [id number] 10/29 Released w/o Limitations [facility] OUTPATIENT [id number] 11/30 Released w/o Limitations [facility] OUTPATIENT [id number] 01/02 Released w/o Limitations [facility] [place]([employer] [facility] ([place]) ) OUTPATIENT [id number] change meds SUSIE FRANK 03/24 Released w/o Limitations [facility]([employer] Primary [facility] ([place])) [place] [place]([employer] [facility] ([place]) ) OUTPATIENT [id number] f/u and renewal of meds SUSIE FRANK 06/02 Released w/o Limitations Jose [facility] [place] Wood([employer] Primary Care ([place])) [facility]_AD) OUTPATIENT [id number] MEDICAT ION BREANNA BROWN 08/24 Released w/o Limitations [facility]( [place] Oper Med Team D_AD) [facility](Mo rrior Oper Med Team D_AD) OUTPATIENT [id number] POSSIBL E THEODORE GUZMÁN 10/16 Released with Work/Duty Limitations [facility]( [place] Oper Med Team D_AD) [facility](Mo rrior Oper Med Team D_AD) TELE CONSULT [id number] Lab results PEDRO NIEVES DL 10/19 [facility]( [place] Oper Med Team D_AD) [facility](ZZ Neurology Cl WR) OUTPATIENT [id number] memory lapses or loss ROCKY TERANN 11/12 Released w/o Limitations [facility]( ZZNeuro logy Cl WR) [facility](Mo rrior Oper Med Team D_AD) TELE CONSULT [id number] med refill PEDRO NIEVES DL 01/09 [facility]( [place] Oper Med Team D_AD) [facility](Mo rrior Oper Med Team D_AD) OUTPATIENT [id number] severe cough POLY ROJO 01/10 Released w/o Limitations [facility]( [place] Oper Med Team D_AD) [facility] OUTPATIENT [id number] 04/19 Released w/o Limitations [facility] OUTPATIENT [id number] 06/21 Released w/o Limitations Theater Facilit y [facility](Op erational Medicine MG) OUTPATIENT [id number] postdep loyment POLY ROJO 07/26 Released w/o Limitations [facility]( Operati onal Medicin e MG) [facility](Mo rrior Oper Med Team D_AD) OUTPATIENT [id number] f/u Occupat ional Therapy RUBIO MCCORMACK 08/13 Released w/o Limitations [facility]( [place] Oper Med Team D_AD) [facility]) DENTAL [id number] t-2 exam, insert HNG BATTLESIAT JOVONSAYDA O 11/27 Released w/o Limitations [facility]) DENTAL [id number] pro only MIGEL MILLER 11/28 Released w/o Limitations [facility]) [facility]([place] MG) TELE CONSULT [id number] CC - AD w/ lower back pain. CB# . ISAIAH WU 12/19 [facility]( [place] MG) [facility](Pr imary Care NO) OUTPATIENT [id number] refill meds JUAN CASTILLO 02/20 Released w/o Limitations [facility]( Primary Care NO) [facility](Pr imary Care NO) OUTPATIENT [id number] PER PT SORE THROAT MARY LOU TROTTER 03/03 Released w/o Limitations [facility]( Primary Care NO) [facility](Pr imary Care NO) OUTPATIENT [id number] Seasona l Flumist Lot# [id number] RADHA GALAVIZ 03/03 Released w/o Limitations [facility]( Primary Care NO) [facility](Pr imary Care NO) TELE CONSULT [id number] mental health appoint ment JUAN CASTILLO 12/08 [facility]( Primary Care NO) [facility](Pr imary Care NO) OUTPATIENT [id number] med f/u JUAN CASTILLO 02/16 Released w/o Limitations [facility]( Primary Care NO) [facility](Pr imary Care NO) OUTPATIENT [id number] pain in left wrist JUAN CASTILLO 04/28 Released w/o Limitations [facility]( Primary Care NO) [facility](Pr imary Care NO) OUTPATIENT [id number] f/u for tendoni BREANNA Sims 06/29 Released w/o Limitations [facility]( Primary Care NO) [facility](Pr imary Care NO) OUTPATIENT [id number] deployi ng, needs med renewal BREANNA CORDON 09/17 Released w/o Limitations [facility]( Primary Care NO) [facility](Op erational Medicine MG) OUTPATIENT [id number] pha/dep loying TOLU GRACE 09/29 Released w/o Limitations [facility]( Operati onal Medicin e MG) [facility](Op erational Medicine MG) OUTPATIENT [id number] TOLU Ullao 09/29 Released w/o Limitations [facility]( Operati onal Medicin e MG) [facility](Fl ight Med MG) OUTPATIENT [id number] Hearing Test KRANTHI ALANIZ 10/19 Released w/o Limitations [facility]( Flight Med MG) [facility](Op erational Medicine MG) OUTPATIENT [id number] Pre-Dep loyment LEONEL Carmichael 11/10 Released w/o Limitations [facility]( Operati onal Medicin e MG) [facility] OUTPATIENT [id number] 11/20 Released w/o Limitations [facility] OUTPATIENT [id number] 12/22 [facility] OUTPATIENT [id number] 12/31 [facility] OUTPATIENT [id number] 01/02 Released w/o Limitations Theater Facilit y [facility](ZZZLS L TBI Screening Neurology ) OUTPATIENT [id number] OND/OEF Concuss ion Screen RAGHU CORDOBA 01/04 Released w/o Limitations [facility](ZZZ LSL TBI Screeni ng Neurolo gy) [facility](LSL Urology) OUTPATIENT [id number] difficu lty uraideti DONALD Martinez 01/04 Released w/o Limitations [facility](LSL Urology ) [facility]) OUTPATIENT [id number] ENROLLMENT SPECIALIST MORRIS NAVARRO 01/04 Released w/o Limitations [facility]) [facility](LSL Urology) OUTPATIENT [id number] f/u DONALD GARCÍA 01/05 Released w/o Limitations [facility](LSL Urology ) [facility]) OUTPATIENT [id number] F/U-TCC MORIRS NAVARRO 01/05 Released w/o Limitations [facility](LSL [facility]) [facility](Op erational Medicine MG) OUTPATIENT [id number] post deploym ent TOLU GRACE 01/12 Released w/o Limitations [facility]( Operati onal Medicin e MG) [facility](Ca se Managemen t Cl MG) TELE CONSULT [id number] New pt / air-SKYLA Loomis ND 01/14 [facility]( Case Managem ent Cl MG) [facility](Op erational Medicine MG) OUTPATIENT [id number] Post-De plLEONEL Rebollar 01/14 Released w/o Limitations [facility]( Operati onal Medicin e MG) [facility](Ca se Managemen t Cl MG) TELE CONSULT [id number] Update assessm ent BUFFYELADIOHUANGSKYLA MIGUEL ND 02/16 [facility]( Case Managem ent Cl MG) [facility](Fa chintan Med Cl Team M_Non-AD) OUTPATIENT [id number] MENTAL CONFUSI ON MELISSA VASQUEZ S 02/16 Released w/o Limitations [facility]( Family Med Cl Team M_Non-A D) [facility](Op tometry Clinic MG) OUTPATIENT [id number] eye exam DONALD YOUSIF 02/24 Released w/o Limitations [facility]( Optomet ry Clinic MG) [facility](Ur ology Cl Be) OUTPATIENT [id number] visit for: [facility] macrelina mayer pre-dep PASCUAL Randall 02/24 Released w/o Limitations [facility]( Urology Cl Be) [facility](Ur ology Cl Be) TELE CONSULT [id number] LYNETTE Egan pt request eval for PRINCE SIERRA 03/11 [facility]( Urology Cl Be) [facility](Ur ology Cl Be) TELE CONSULT [id number] PRINCE Billingsley 03/16 [facility]( Urology Cl Be) [facility](Ur ology Cl Be) TELE CONSULT [id number] testost erPRINCE Jamil 03/18 [facility]( Urology Cl Be) [facility](Ur ology Cl Be) OUTPATIENT [id number] f/up lab ASHWIN CARBAJAL 04/15 Released w/o Limitations [facility]) [facility](Wa rrior Oper Med Team D_AD) TELE CONSULT [id number] Fit for duty letter needs signatu re. CB#[phone] [phone] . DONALD TROTTER 05/04 [facility]( [place] Oper Med Team D_AD) [facility](Fa chintan Med Cl Team M_Non-AD) OUTPATIENT [id number] fit for duty letter NAMASAKA, KHAYANGA S 05/12 Released w/o Limitations [facility]( Family Med Cl Team M_Non-A D) [facility](Per Rel Prog Clinic) OUTPATIENT [id number] Notes Entered by: CANDIDO POLANCO 09 Sep 2011 0803 ------- ------- ------- ------- -- [facility] BIMAL POLANCO 09/08 Released w/o Limitations [facility](P er Rel Prog Clinic) [facility](Per [facility]g [facility]) OUTPATIENT [id number] NEW PATIENT /WELBUT RIN REFMAZIN KATHLEEN 10/25 Released w/o Limitations [facility](P er Rel Prog Clinic) [facility]) OUTPATIENT [id number] EMERALD WEISS 10/27 Released w/o Limitations [facility]) [facility](Per [facility]) TELE CONSULT [id number] Notes Entered by: Reji HASSAN 01 Nov 2011 1312 ------- ------- ------- ------- -- 72HR/LILIBETH LOCKE 10/31 [facility](P er Rel Prog [facility]) [facility](Per [facility]) OUTPATIENT [id number] continu ed symptom s from 25 October MAZIN MULLEN 11/01 Released w/o Limitations [facility](P er Rel Prog Clinic) [facility]) OUTPATIENT [id number] Notes Entered by: KSENIA LOPEZ 22 Nov 2011 1211 ------- ------- ------- ------- -- KSENIA GIBSON 11/21 Released w/o Limitations [facility]) [facility]) OUTPATIENT [id number] Notes Entered by: KSENIA LOPEZ 22 Nov 2011 1219 ------- ------- ------- ------- -- KSENIA GIBSON 11/21 Released w/o Limitations [facility]) [facility](Per Rel Prog Clinic) TELE CONSULT [id number] Notes Entered by: RIMA LUNDBERG 02 Dec 2011 1108 ------- ------- ------- ------- -- 72HR REFILL LILIBETH GOLDEN E 12/01 [facility](P er Rel [facility]g [facility]) [facility](Per [facility]) OUTPATIENT [id number] SEXUAL ISSUES LILIBETH GOLDEN 12/29 Released w/o Limitations [facility](P er Rel Prog [facility]) [facility](Per [facility]) TELE CONSULT [id number] Notes Entered by: SHASHA SANTOYO 06 Jan 2012 0949 ------- ------- ------- ------- -- Medicat ion LILIBETH Herrera E 01/05 [facility](P er Rel Prog [facility]) [facility](Per [facility]) TELE CONSULT [id number] Notes Entered by: SALCEDO 27 Jan 2012 1507 ------- ------- ------- ------- -- 24HR ACUTE OLIVIA CHINCHILLA 01/26 [facility](P er Rel Prog Clinic) [facility](Min ot [facility]) OUTPATIENT [id number] WRIST TENDONI SUMA NEUMANN 04/21 Released w/o Limitations [facility](M inot [facility] ) [facility](Min ot [facility]) TELE CONSULT [id number] Notes Entered by: JULI CARTER AE 24 Apr 2012 1441 ------- ------- ------- ------- -- Results of SUMA Mandujano 04/24 [employer] [employer](M inot [facility] ) [employer](Min ot [facility]) TELE CONSULT [id number] Notes Entered by: DEENA BRIDGES 04 May 2012 1254 ------- ------- ------- ------- -- 72 HR SUSY HUNTLISBETReji Mayer 05/04 [employer](M inot [facility] ) [employer](Min ot [facility]) TELE CONSULT [id number] Notes Entered by: MICHA COLVIN 11 Aug 2012 0809 ------- ------- ------- ------- -- NETWORK RESULTS OSBALDO Bernard NOTE 05/24 SUMA MCCARTNEY 08/11 [employer] [employer](M inot [facility] ) [employer](Min ot [facility]) TELE CONSULT [id number] Notes Entered by: MICHA COLVIN 11 Aug 2012 0812 ------- ------- ------- ------- -- NETWORK RESULTS OSBALDO Bernard NOTE 05/24 MCKAYLA NGUYEN 08/11 [facility](M [facility]ot [facility] ) [employer](Min ot [facility]) OUTPATIENT [id number] DISCUSS POSS RHINOPL MCKAYLA KIMBALL 08/25 Released w/o Limitations [facility](M [facility] ) [facility] [employer](Per Rel Prog Clinic) OUTPATIENT [id number] Notes Entered by: FUENTES WOOD 30 Oct 2012 1419 ------- ------- ------- ------- -- MIRIAM Gonzalez 10/30 Released w/o Limitations [facility] [employer](P er Rel Prog Clinic) [facility](Per Rel Prog Clinic) OUTPATIENT [id number] Notes Entered by: ALDO REIS 23 Nov 2012 1045 ------- ------- ------- ------- -- dta MORRIS BERMUDEZ Anaya 11/23 Released w/o Limitations [facility](P er Rel Prog [facility]) [facility]) OUTPATIENT [id number] RONNIE LUAN EPSTEIN Breanna 12/12 Released w/o Limitations [facility]) [facility](Per [facility]g [facility]) OUTPATIENT [id number] Notes Entered by: ALDO REIS 12 Dec 2012 0953 ------- ------- ------- ------- -- clarisa MARIA G STANLEY Sharyn 12/12 Released w/o Limitations [facility](P er Rel Prog [facility]) [facility]) OUTPATIENT [id number] Notes Entered by: KSENIA LOPEZ 27 Dec 2012 0810 ------- ------- ------- ------- -- KSENIA GIBSON 12/27 Released w/o Limitations [facility]) [facility](Per Rel Prog Clinic) TELE CONSULT [id number] Notes Entered by: BLESSING PAYAN 24 Apr 2013 1334 ------- ------- ------- ------- -- 24HR ERIN REDDING 04/24 [facility](P er Rel [facility]g [facility]) [facility]) OUTPATIENT [id number] Notes Entered by: KSENIA LOPEZ 14 May 2013 1336 ------- ------- ------- ------- -- KSENIA GIBSON 05/14 Released w/o Limitations [facility]) [facility](Opt ometry) OUTPATIENT [id number] GEE BURNS 05/30 Released w/o Limitations [facility](O ptometr y) [facility] OUTPATIENT [id number] 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 10/10 Released w/o Limitations [facility] OUTPATIENT [id number] 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 11/22 Released w/o Limitations Theater Facilit y [employer]([facility] Medicine) OUTPATIENT [id number] Notes Entered by: MITA MCAIEL 04 Dec 2013 0828 ------- ------- ------- ------- -- Occupat ional Health Exam/Au RUBIO Del Angel 12/04 Released w/o Limitations [facility](F light Medicin e) [facility]) OUTPATIENT [id number] Notes Entered by: KSENIA LOPEZ 05 Dec 2013 0911 ------- ------- ------- ------- -- DHA KSENIA LOPEZ 12/05 Released w/o Limitations [facility]) [facility](Per Rel Prog Clinic) OUTPATIENT [id number] Notes Entered by: LELE DE LA GARZA 09 Jan 2014 1245 ------- ------- ------- ------- -- Return from [facility] [place] 01/09 Released w/o Limitations [facility](P er Rel Prog Clinic) [facility]) OUTPATIENT [id number] PRP LEONEL MURPHY 01/24 Released w/o Limitations [facility]) [facility](Per Rel Prog Clinic) OUTPATIENT [id number] FATIGUE KEITH MCINTYRE 02/06 Released w/o Limitations [employer](P er Rel Prog Clinic) [facility](Per Rel Prog Clinic) OUTPATIENT [id number] f/u KEITH MCINTYRE 02/18 Released w/o Limitations [facility](P er Rel Prog Clinic) [facility]) OUTPATIENT [id number] Notes Entered by: KSENIA LOPEZ 18 Mar 2014 1225 ------- ------- ------- ------- -- KSENIA GIBSON 03/18 Released w/o Limitations [facility]) [facility](Per Rel Prog Clinic) TELE CONSULT [id number] Notes Entered by: CARMELITA TORO 18 Apr 2014 0821 ------- ------- ------- ------- -- 24 HR ACUTE KEITH MCINTYRE 04/18 [facility](P er Rel [facility]g [facility]) [employer](Per Rel Prog Clinic) OUTPATIENT [id number] Notes Entered by: DAVIDE GAONA 24 Apr 2014 1133 ------- ------- ------- ------- -- PER CPT KEITH JARRELL 04/24 Released w/o Limitations [facility](P er Rel Prog [facility]) [facility](Per [facility]) OUTPATIENT [id number] Notes Entered by: FUENTES WOOD 14 Jun 2014 0934 ------- ------- ------- ------- -- KEITH BECKMAN 06/14 Released w/o Limitations [facility](P er Rel Prog [facility]) [facility](Opt ometry) OUTPATIENT [id number] EYE EXAM RICH ELENA 08/08 Released w/o Limitations [facility](O ptometr y) [facility](Per Rel Prog Clinic) TELE CONSULT [id number] Notes Entered by: ERIN CARPENTER 13 Sep 2014 0916 ------- ------- ------- ------- -- Missed ERIN CARPENTER 09/13 [facility](P er Rel [facility]g [facility]) [facility](Per Rel Prog Clinic) OUTPATIENT [id number] Notes Entered by: DAVIDE GAONA 08 Oct 2014 1401 ------- ------- ------- ------- -- PER. . KEITH JARRELL 10/08 Released w/o Limitations [employer](P er Rel Prog Clinic) [place] [place] [address] [place] [address] OUTPATIENT [id number] Pre-Op, JUANI Chang 10/15 Released w/o Limitations [facility] [address] Sathish JOH[place] [address] OUTPATIENT [id number] CRS Briefin g/wjw HUANG WARREN 10/16 Released w/o Limitations [facility] [address] Sathish J[place] [address] OUTPATIENT [id number] CRS Surgery /wHUANG Hastings 10/17 Released w/o Limitations Sathish J[place] [address] Sathish J[place] [address] OUTPATIENT [id number] 4 day f/u, JUANI Chang 10/21 Released w/o Limitations Sathish JOH[place] [address] [employer](Opt ometry) OUTPATIENT [id number] CRS 1 week GEE HARRIS 10/25 Released w/o Limitations [employer](O ptometr y) [employer](Opt ometry) OUTPATIENT [id number] 1 mo crs f/u GEE HARRIS 11/15 Released w/o Limitations [employer](O ptometr y) [employer](Per Rel Prog Clinic) OUTPATIENT [id number] Notes Entered by: AMARA GONZALEZ 20 Nov 2014 1103 ------- ------- ------- ------- -- leg pain KEITH MCINTYRE 11/20 Released w/o Limitations [employer](P er Rel Prog Clinic) [employer](Opt ometry) OUTPATIENT [id number] 2 mo crs f/u GEE HARRIS 01/02 Released w/o Limitations [employer](O ptometr y) [employer](Opt ometry) OUTPATIENT [id number] 3 mo crs f/u STEVENGEE 01/21 Released w/o Limitations [facility](O ptometr y) [facility](Per Rel Prog Clinic) OUTPATIENT [id number] nasal congest ion KEITH MCINTYRE 02/26 Released w/o Limitations [facility](P er Rel Prog [facility]) [facility]) OUTPATIENT [id number] Notes Entered by: JUAN FRANCISCO NAZARIO 05 Mar 2015 1215 ------- ------- ------- ------- -- WALK IN [facility] PHA EMERALD NAZARIO 03/05 Released w/o Limitations [facility]) [facility]) OUTPATIENT [id number] Notes Entered by: KSENIA LOPEZ 05 Mar 2015 1302 ------- ------- ------- ------- -- KSENIA GIBSON 03/05 Released w/o Limitations [facility] [facility] OUTPATIENT [id number] req fit and clear KEITH MCINTYRE 03/12 Released w/o Limitations [facility]) [facility] OUTPATIENT [id number] Notes Entered by: JAUN QUINTANA 17 Apr 2015 1257 ------- ------- ------- ------- -- Cold SX's KEITH MCINTYRE 04/17 Released w/o Limitations [facility]) [facility](Phy sical Therapy) OUTPATIENT [id number] leg pain OLIVIA STAPLES 04/18 Released w/o Limitations [facility](P hysical Therapy ) [facility](Opt ometry) OUTPATIENT [id number] 6 month CRS f/u RICH ELENA 04/21 Released w/o Limitations [facility] [employer](O ptometr y) [facility](Phy sical Therapy) OUTPATIENT [id number] OLIVIA STAPLES 05/19 Released w/o Limitations [employer] [employer](P hysical Therapy ) [facility] OUTPATIENT [id number] per KEITH Jarrell 05/21 Released w/o Limitations [facility]) [facility] OUTPATIENT [id number] Notes Entered by: AMARA GONZALEZ 27 Jun 2015 1248 ------- ------- ------- ------- -- rash KEITH MCINTYRE 06/26 Released w/o Limitations [facility]) OUTPATIENT [id number] Notes Entered by: YAMINI BOWENS 11 Jul 2015 1402 ------- ------- ------- ------- -- OCCUPAT IONAL HEALTH/ AUDIOGR AM KALEY GARCIA 07/10 Released w/o Limitations [facility]) [facility] OUTPATIENT [id number] RTDA LILIBETH TOMPKINS NMI 09/28 Released w/o Limitations [facility](Opt ometry) OUTPATIENT [id number] 12 mo crs f/u RICH ELENA 10/26 Released w/o Limitations [facility](O ptometr y) [facility] OUTPATIENT [id number] Notes Entered by: JOHAN MACKEY 22 Dec 2015 1051 ------- ------- ------- ------- -- BACK PAIN LILIBETH TOMPKINS NMI 12/21 Released w/o Limitations [facility] TELE CONSULT [id number] Notes Entered by: BARRY COMBSSANA TOMMY Hicks 06 Jan 2016 1444 ------- ------- ------- ------- -- Network Results -PODIAT RY-8Jul y16-See artifac ts & images LILIBETH TOMPKINS 01/05 [facility] TELE CONSULT [id number] Notes Entered by: XOCHILT WILLIAMSON 04 Feb 2016 1425 ------- ------- ------- ------- -- Self inspect LATANYA Reynolds 02/03 [facility]) TELE CONSULT [id number] Notes Entered by: Kristen TOMPKINS HER 05 Feb 2016 0934 ------- ------- ------- ------- -- TB concern s LILIBETH TOMPKINS 02/04 [facility] TELE CONSULT [id number] Notes Entered by: Kristen TOMPKINS HER 24 Feb 2016 1236 ------- ------- ------- ------- -- Discuss ion with member LILIBETH TOMPKINS 02/23 [facility]) OUTPATIENT [id number] Notes Entered by: YANIRA HULL 18 Mar 2016 1052 ------- ------- ------- ------- -- WALK IN ANKLE / JOINT PAIN LILIBETH TOMPKINS 03/18 Released with Work/Duty Limitations [facility]) OUTPATIENT [id number] Notes Entered by: STEVEN DE LA CRUZ 04 May 2016 1129 ------- ------- ------- ------- -- TRISERV ICE RONNIE ARRINGTON CHRISFLORESITA URBINA 05/04 Released w/o Limitations [facility] OUTPATIENT [id number] Priorit y ELMO OK per [place] ARRINGTON, CHRISFLORESITA URBINA 05/05 Released w/o Limitations [facility]) TELE CONSULT [id number] Notes Entered by: MONICA ALAMO 03 Jun 2016 1412 ------- ------- ------- ------- -- Network results - sleep study -look in artifac ts and images LILIBETH TOMPKINS NMI 06/03 [facility] OUTPATIENT [id number] Notes Entered by: YANIRA HULL 09 Jun 2016 0707 ------- ------- ------- ------- -- walk in per LILIBETH Olivas 06/09 Released w/o Limitations [facility]) [facility]) TELE CONSULT [id number] Notes Entered by: Kristen TOMPKINS BANNER 25 Jun 2016 1047 ------- ------- ------- ------- -- LILIBETH Emery 06/25 [facility](Bas e Operation al Medicine Clin) TELE CONSULT [id number] Notes Entered by: EULALIA DUNHAM 17 Aug 2016 0944 ------- ------- ------- ------- -- [facility] Blank saravia Review EULALIA DUNHAM 08/17 Released w/o Limitations [facility](B ase Operati onal Medicin e Clin) [facility] OUTPATIENT [id number] PRP-sle ep concern s/pain DONALD PATEL 08/27 Released w/o Limitations [facility]) TELE CONSULT [id number] Notes Entered by: MARIBEL PATEL 30 Aug 2016 0736 ------- ------- ------- ------- -- Xray results DONALD PATEL 08/30 [facility] OUTPATIENT [id number] Urinary Pain/Er ectile Disfunc tion DONALD PATEL 09/10 Released w/o Limitations [facility] TELE CONSULT [id number] Notes Entered by: MARIBEL PATEL 17 Sep 2016 1052 ------- ------- ------- ------- -- Lab results DONALD PATEL 09/17 [facility]) TELE CONSULT [id number] Notes Entered by: MARIBEL PATEL 21 Sep 2016 1207 ------- ------- ------- ------- -- Medicat ion renewal DONALD PATEL 09/21 [facility] OUTPATIENT [id number] Notes Entered by: MAXIMO HUGHES 22 Oct 2016 0951 ------- ------- ------- ------- -- Walk In for insect bite DONALD PATEL 10/22 Released with Work/Duty Limitations [facility]) TELE CONSULT [id number] Notes Entered by: SANA ANGELES 10 Nov 2016 1049 ------- ------- ------- ------- -- Network Results --MRI LT ANKLE-- 11/05/16 --See artifac ts & images. DONALD PATEL 11/10 [facility] TELE CONSULT [id number] Notes Entered by: MAO HILLMAN 16 Nov 2016 1527 ------- ------- ------- ------- -- NETWORK RESULTS --PODIA TRY -- -- SEE ARTIFAC TS & IMAGES DONALD PATEL 11/16 [facility] OUTPATIENT [id number] CONSULT ATDONALD PECK 11/19 Released with Work/Duty Limitations [facility]) [facility](Inc orrect [facility](Inac tive)) OUTPATIENT [id number] Notes Entered by: GARRET FREEMAN 19 Nov 2016 0943 ------- ------- ------- ------- -- AUDIOGR AM ANEUDY FREEMAN 11/19 Released w/o Limitations [facility](I ncorrec t [facility](In active) ) [facility] TELE CONSULT [id number] Notes Entered by: ADRIENNE MENJIVAR 26 Nov 2016 0939 ------- ------- ------- ------- -- Network Results -XR Left Hand 4aug17 See Artifac ts and Images DONADL PATEL 11/26 [facility](Inc orrect [facility](Inac tive)) OUTPATIENT [id number] Notes Entered by: CRISTAL CAMARGO 06 Dec 2016 1030 ------- ------- ------- ------- -- AUDIOGR AM FOLLOW- UP LEATHA SALDAÑA 12/06 Released w/o Limitations [facility](Emily DIXON(In active) ) [facility] TELE CONSULT [id number] Notes Entered by: MARIBEL PATEL 15 Dec 2016 0952 ------- ------- ------- ------- -- DONALD NOVAK 12/15 [facility] OUTPATIENT [id number] WALK IN PER CAPT DONALD GARVIN 12/28 Released w/o Limitations [facility]) [facility] OUTPATIENT [id number] PRP:F/U DONALD PATEL 02/04 Released w/o Limitations [facility] OUTPATIENT [id number] Wart Removal -Left Foot DONALD PATEL 02/25 Released w/o Limitations [facility]) [facility](Phy sical Therapy) OUTPATIENT [id number] L Ankle ROM SANAM LOUIS 03/17 Released w/o Limitations [facility](P hysical Therapy ) [facility]) OUTPATIENT [id number] Need more migrain e medicin e/wart removal DONALD PATEL 05/02 Released with Work/Duty Limitations [facility]) [facility] OUTPATIENT [id number] Medicat ion Follow Up DONALD PATEL 05/26 Released with Work/Duty Limitations [facility]) [facility] OUTPATIENT [id number] Medicat ion Follow Up DONALD PATEL 08/31 Released w/o Limitations [facility] OUTPATIENT [id number] MEDICAT ION REFRADHA LATIF 01/06 Released w/o Limitations [facility] [employer](F MC Team B-Non AD) [employer] [employer](Fli t Medicine) OUTPATIENT [id number] 4 ESTEFANY Dunlap 03/16 Released w/o Limitations [employer](F light Medicin e) [place] [facility] OFFICE O/P NEW LOW 30-44 MIN [id number] [id number] Diagnos is: ICD-10- CM G50.1 Atypica l facial pain
LYNETTE WALTERS 08/16 [facility] [place] [facility] Outpatient Encounter [id number] 08/16 [facility] [place] [facility] Outpatient Encounter [id number] 10/22 [facility] Outpatient Encounter [id number] 12/27 [facility] OFFICE O/P EST HI 40-54 MIN [id number] Diagnos is: ICD-10- CM F33.9 Major depress mi disorde r, recurre nt, unspeci fied
JENY CESAR 12/27 [facility] [place] [facility] Outpatient Encounter [id number] RAQUEL MORRISON 04/20 [facility] [place] [facility] OFFICE O/P EST MOD 30 MIN [id number] Diagnos is: ICD-10- CM F43.12 Post-tr aumatic stress disorde r, chronic
FREDY CHESTER [facility] [place] [facility] Outpatient Encounter [id number] 07/18 [facility] [place] [facility] OFFICE O/P EST MOD 30 MIN [id number] Diagnos is: ICD-10- CM F43.12 Post-tr aumatic stress disorde r, chronic
FREDY CHESTER CQUES T 07/24 [facility] [place] [facility] Outpatient Encounter [id number] 08/21 [facility] [place] [facility] OFFICE O/P EST MOD 30 MIN [id number] Diagnos is: ICD-10- CM F43.12 Post-tr aumatic stress disorde r, chronic
FREDY CHESTER CQUES T 09/18 [facility] [place] [facility] Outpatient Encounter [id number] 11/21 [facility] Procedures Combined list of: 1) Procedures from Department of Veterans Affairs facilities going back up to thelast 18 months, not all [place] non-surgical procedures are included; 2) All procedures from the Department of Defense facilities. Procedure Procedure Type Code Date Perfomer Comments Sourc e Case Management, each 15 minutes 011 SKYLA BRUCE [facility] Diagnostic Cystoscopy Diagnostic Cystoscopy 35061 011 DONALD GARCÍA [facility] Measuremt Post-Voiding Resid Urine, Bladder Capacity Ultrasd Measuremt Post-Voiding Resid Urine, Bladder Capacity Ultrasd 93301 011 DONALD GARCÍA [facility] Psychometric Neuropsych Testing Battery Admin By Computer Psychometric Neuropsych Testing Battery Admin By Computer 59725 011 JENNY RAMOS [facility] Psychometric Neuropsych Testing Battery Admin By Computer Psychometric Neuropsych Testing Battery Admin By Computer 05275 010 KARI MCDERMOTT [facility] Psychiatric Diagnostic Evaluation Comprehensive Examination Psychiatric Diagnostic Evaluation Comprehensive Examination 09654 010 JENNY RAMOS [facility] Audiometry Group Testing Audiometry Group Testing 11456 007 FRANCY HEART [facility] Clinical Social Work Individual Outpatient Counseling 45 Minutes Clinical Social Work Individual Outpatient Counseling 45 Minutes 11513 006 BRENT KIRBY [facility] Clinical Social Work Individual Outpatient Counseling 45 Minutes Clinical Social Work Individual Outpatient Counseling 45 Minutes 67339 006 BRENT KIRBY [facility] Clinical Social Work Individual Outpatient Counseling 30 Minutes Clinical Social Work Individual Outpatient Counseling 30 Minutes 41697 006 MARY CARMEN [facility] Threshold Audiogram (Pure Tone) Threshold Audiogram (Pure Tone) 94281 006 JOHAN SILVA [facility] Determination Of Refractive State Determination Of Refractive State 82595 005 OMAR LEROY [facility] Ophthalmological New Patient Start Comprehensive Care Ophthalmological New Patient Start Comprehensive Care 76667 005 OMAR LEROY R Tyson Excision Of Lesion Face Benign .6 to 1cm 005 CLAUDIA PHILLIPS [facility] Psychiatric Diagnostic Evaluation Comprehensive Examination Psychiatric Diagnostic Evaluation Comprehensive Examination 54448 005 DANIEL CHANG [facility] Psychiatric Diagnostic Evaluation Review of Records and Reports Psychiatric Diagnostic Evaluation Review of Records and Reports 48957 005 DANIEL CHANG [facility] Psychometric Emotional / Behavioral A e ment Psychometric Emotional / Behavioral Assessment 85528 018 ZALPLGEE, JUWAN E DoD Psychotherapy Individual Approximately 60 Minutes Psychotherapy Individual Approximately 60 Minutes 65867 018 ЕКАТЕРИНАLKY, JUWAN E DoD Psychometric Emotional / Behavioral A e ment Psychometric Emotional / Behavioral Assessment 54309 018 ЕКАТЕРИНАLKY, JUWAN E [facility] Psychiatric Diagnostic Evaluation Comprehensive Examination Psychiatric Diagnostic Evaluation Comprehensive Examination 18275 018 ЕКАТЕРИНАLKY, JUWAN E DoD Psychometric Emotional / Behavioral A e ment Psychometric Emotional / Behavioral Assessment 78094 018 ЕКАТЕРИНАLKY, JUWAN E DoD Psychometric Neuropsych Testing Battery Admin By Computer Psychometric Neuropsych Testing Battery Admin By Computer 02347 018 ЕКАТЕРИНАLKY JUWAN E Tyson Psychotherapy Individual Approximately 60 Minutes Psychotherapy Individual Approximately 60 Minutes 05332 018 ЕКАТЕРИНАLKY, JUWAN E [facility] Physical Therapy Service Evaluation Low Complexity Physical Therapy Service Evaluation Low Complexity 81203 017 SANAM LOUIS [facility] Paring / Curettage Of Benign Hyperkeratotic Lesion, Single Paring / Curettage Of Benign Hyperkeratotic Lesion, Single 02752 017 DONALD PATEL [facility] Destruction Of Flat Warts By Cryosurgery Up To 14 Lesions Destruction Of Flat Warts By Cryosurgery Up To 14 Lesions 32652 017 DONALD PATEL [facility] Psychiatric Therapy Preparation of Psychiatric Status Report Psychiatric Therapy Preparation of Psychiatric Status Report 43003 017 JERRY RAMAN Psychometric Emotional / Behavioral A e ment Psychometric Emotional / Behavioral Assessment 69656 016 SUSIE WALKER Tyson Psychotherapy Indiv Approx 45 Min W/ Medical Evaluation & Management 016 SUSIE WALKER Tyson Psychotherapy Indiv Approx 45 Min W/ Medical Evaluation & Management 016 JESUS HAHN Psychometric Emotional / Behavioral A e ment Psychometric Emotional / Behavioral Assessment 67120 016 JESUS HAHN Determination Of Refractive State Determination Of Refractive State 97497 016 RICH ELENA Ophthalmological Prior Patient Start Comprehensive Care Ophthalmological Prior Patient Start Comprehensive Care 50846 016 RICH ELENA Psychometric Emotional / Behavioral A e ment Psychometric Emotional / Behavioral Assessment 56671 016 JERRY RAMAN Psychotherapy Individual Approximately 60 Minutes 016 JERRY RAMAN T Tyson Psychometric Emotional / Behavioral A e ment Psychometric Emotional / Behavioral Assessment 88113 016 JERRY RAMAN Psychotherapy Individual Approximately 60 Minutes 016 JERRY RAMAN Psychotherapy Indiv Approx 45 Min W/ Medical Evaluation & Management 016 JESUS HAHN Psychometric Emotional / Behavioral A e ment Psychometric Emotional / Behavioral Assessment 90240 016 JESUS HHAN Psychometric Emotional / Behavioral A e ment Psychometric Emotional / Behavioral Assessment 83867 016 JERRY RAMAN T [place] Psychotherapy Individual Approximately 60 Minutes 016 JERRY RAMAN T Tyson Psychotherapy Individual Approx 30 Min W/ Medical Evaluation & Management 016 JESUS HAHN Physical Therapy: ___ Se ion Segments, 15 Minutes Each Physical Therapy: ___ Session Segments, 15 Minutes Each 46961 016 OLIVIA STAPLES [facility] Physical Therapy Service Re-Evaluation Physical Therapy Service Re-Evaluation 27369 016 OLIVIA STAPLES [facility] Psychotherapy Individual Approximately 60 Minutes 016 JERRY RAMAN Psychotherapy Individual Approximately 45 Minutes 016 JERRY RAMAN Postoperative Visit, Without Charge Postoperative Visit, Without Charge 99581 016 RICH ELENA Foot, arch support, removable, premolded, longitudinal, each OLIVIA STAPLES L420 M sz 13 [facility] Physical Therapy Education Orthotics Training OLIVIA STAPLES [facility] Physical Therapy: ___ Se ion Segments, 15 Minutes Each Physical Therapy: ___ Session Segments, 15 Minutes Each 31874 OLIVIA STAPLES Physical Therapy Service Evaluation Physical Therapy Service Evaluation 95794 OLIVIA STAPLES [facility] Psychotherapy Individual Approx 30 Min W/ Medical Evaluation & Management JESUS HAHN Non-Physician Phone Call To Pt/Provider Intermed (11-20 min) Non-Physician Phone Call To Pt/Provider Intermed (11-20 min) 64757 JERRY RAMAN Psychotherapy Individual Approximately 60 Minutes 015 JERRY RAMAN Psychotherapy Individual Approximately 60 Minutes 015 JERRY RAMAN Psychotherapy Individual Approximately 60 Minutes 015 JERRY RAMAN Postoperative Visit, Without Charge Postoperative Visit, Without Charge 30063 015 GEE HARRIS Psychotherapy Individual Approximately 60 Minutes 015 JERRY RAMAN Psychotherapy Individual Approximately 60 Minutes 015 JERRY RAMAN Psychotherapy Individual Approximately 60 Minutes 015 JERRY RAMAN Postoperative Visit, Without Charge Postoperative Visit, Without Charge 77088 015 GEE HARRIS Psychotherapy Individual Approximately 60 Minutes 015 JERRY RAMAN Psychotherapy With Medication Management Psychotherapy With Medication Management 42970 015 JESUS HAHN Psychotherapy Individual Approximately 60 Minutes 015 JERRY RAMAN Psychotherapy Individual Approximately 60 Minutes 015 JERRY RAMAN Psychotherapy Individual Approximately 60 Minutes 015 JERRY RAMAN Postoperative Visit, Without Charge Postoperative Visit, Without Charge 83892 015 GEE HARRIS Postoperative Visit, Without Charge Postoperative Visit, Without Charge 35817 015 GEE HARRIS Postoperative Visit, Without Charge Postoperative Visit, Without Charge 70603 015 JUANI GAMBOA Photorefractive keratectomy (PRK) 015 SOLIS ORTIZ Physician [employer] Educational Services Physician Supervised Group Educational Services 48280 015 SOLIS ORTIZ Scanning Computerized Ophthalmic Diagnostic Imaging Optic Nerve Scanning Computerized Ophthalmic Diagnostic Imaging Optic Nerve 03687 015 JUANI GAMBOA Corneal Pachymetry Corneal Pachymetry 70924 10/10 015 JUANI GAMBOA Scanning Computerized Ophthalmic Diagnostic Imaging Anterior Segment, Unilateral Scanning Computerized Ophthalmic Diagnostic Imaging Anterior Segment, Unilateral 39147 015 JUANI GAMBOA External Ocular Photography External Ocular Photography 02979 015 JUANI GAMBOA Computerized Corneal Topography Computerized Corneal Topography 93426 015 JUANI GAMBOA Determination Of Refractive State Determination Of Refractive State 05503 015 JUANI GAMBOA Ophthalmological New Patient Start Comprehensive Care Ophthalmological New Patient Start Comprehensive Care 99894 015 JUANI GAMBOA Psychotherapy Individual Approximately 60 Minutes 015 JERRY RAMAN Psychiatric Diagnostic Evaluation Psychiatric Diagnostic Evaluation 80814 015 JERRY RAMAN Non-Physician Phone Call To Pt/Provider Intermed (11-20 min) Non-Physician Phone Call To Pt/Provider Intermed (11-20 min) 25259 015 ROGELIO COOK Ophthalmological Prior Patient Start Comprehensive Care Ophthalmological Prior Patient Start Comprehensive Care 57983 015 RICH ELENA Corneal Pachymetry Corneal Pachymetry 46841 015 RICH ELENA Computerized Corneal Topography Computerized Corneal Topography 66649 015 RICH ELENA Determination Of Refractive State Determination Of Refractive State 37029 015 RICH ELENA Psychotherapy Individual Approximately 60 Minutes 014 MAYRA ALFARO Psychotherapy Individual Approximately 30 Minutes 014 JESUS HAHN Psychotherapy With Medication Management Psychotherapy With Medication Management 51908 014 JESUS HAHN Psychiatric Diagnostic Evaluation Initial Psychiatric Diagnostic Evaluation Initial 87181 014 MAYRA ALFARO [employer] Services Fitting Monofocal Except For Aphakia Spectacles Services Fitting Monofocal Except For Aphakia 67630 014 GEE HARRIS Determination Of Refractive State Determination Of Refractive State 95586 014 GEE HARRIS Ophthalmological New Patient Start Comprehensive Care Ophthalmological New Patient Start Comprehensive Care 92044 014 GEE HARRIS Psychotherapy With Medication Management Psychotherapy With Medication Management 85783 014 JESUS HAHN Psychologic Testing And Report Administered By Computer Psychologic Testing And Report Administered By Computer 58111 014 TEENA STANLEY [facility] Psychotherapy With Medication Management Psychotherapy With Medication Management [id number] JESUS HAHN Psychiatric Diagnostic Evaluation Review of Records and Reports Psychiatric Diagnostic Evaluation Review of Records and Reports [id number] RAIZAHOSTAMMY, DIMAS L [facility] [employer] [employer] Psychotherapy Individual Approximately 60 Minutes 013 DUCHOSLAMONTV, DIMAS L DoD Psychotherapy Individual Approximately 60 Minutes 013 RAIZAHOSTAMMY, DIMAS L Tyson Psychotherapy Individual Approximately 60 Minutes 013 CIERRASSHEEBA MUNOZHEL L Tyson Psychotherapy With Medication Management Psychotherapy With Medication Management [id number] JESUS HAHN Psychiatric Diagnostic Evaluation Comprehensive Examination Psychiatric Diagnostic Evaluation Comprehensive Examination [id number] CIERRASTAMMY DIMAS Aris Mehta Psychotherapy Individual Approx 30 Min W/ Medical Evaluation & Management Psychotherapy Individual Approx 30 Min W/ Medical Evaluation & Management [id number] JESUS HAHN Psychotherapy With Medication Management Psychotherapy With Medication Management [id number] JESUS HAHN Psychologic Testing And Report Administered By Computer Psychologic Testing And Report Administered By Computer [id number] TEENA STANLEY Psychiatric Diagnostic Evaluation Comprehensive Examination Psychiatric Diagnostic Evaluation Comprehensive Examination [id number] JESUS HAHN Psychiatric Diagnostic Evaluation Comprehensive Examination Psychiatric Diagnostic Evaluation Comprehensive Examination [id number] JENNA HECTOR [facility] Spectacles Services Fitting Monofocal Except For Aphakia Spectacles Services Fitting Monofocal Except For Aphakia [id number] DONALD YOUSIF 1 FOC, 1 GMI, 1 S91A. PD 59 DoD Determination Of Refractive State Determination Of Refractive State 53680 DONALD YOUSIF Ophthalmological New Patient Start Comprehensive Care Ophthalmological New Patient Start Comprehensive Care [id number] BENJADONALD Veronica [facility] Coordinated care fee, maintenance rate 011 SKYLA BRUCE [facility] Case Management, each 15 minutes SKYLA BRUCE Coordinated care fee, maintenance rate SKYLA BRUCE [facility] SCREENING TEST OF VISUAL ACUITY, QUANTITATIVE, BILATERAL 007 [facility] AUDIOMETRIC TESTING OF GROUPS 007 [facility] ANTHRAX VACCINE, FOR SUBCUTANEOUS OR INTRAMUSCULAR USE 007 [facility] MEASUREMENT OF POST-VOIDING RESIDUAL URINE AND/OR BLADDER CAPACITY BY ULTRASOUND, NON-IMAGING 011 [facility] PSYCHIATRIC DIAGNOSTIC INTERVIEW EXAMINATION 012 DoD FITTING OF SPECTACLES, EXCEPT FOR APHAKIA; MONOFOCAL 011 [facility] COORDINATED CARE FEE, MAINTENANCE RATE 011 [facility] CASE MANAGEMENT, EACH 15 MINUTES 011 [facility] NEUROPSYCHOLOGICAL TESTING (EG, [place] CARD SORTING TEST), ADMINISTERED BY A COMPUTER, WITH QUALIFIED HEALTH WOOL FLEECE SORTER INTERPRETATION AND REPORT 011 [facility] INTRODUCTION OF NEEDLE OR INTRACATHETER, VEIN 011 [facility] NEUROPSYCHOLOGICAL TESTING (EG, [place] CARD SORTING TEST), ADMINISTERED BY A COMPUTER, WITH QUALIFIED HEALTH WOOL FLEECE SORTER INTERPRETATION AND REPORT [facility] PSYCHIATRIC DIAGNOSTIC INTERVIEW EXAMINATION [facility] MANUAL THERAPY TECHNIQUES (EG, MOBILIZATION/ MANIPULATION, MANUAL LYMPHATIC DRAINAGE, MANUAL TRACTION), 1 OR MORE REGIONS, EACH 15 MINUTES 004 [facility] DETERMINATION OF REFRACTIVE STATE 004 [facility] POSTOPERATIVE FOLLOW-UP VISIT, NORMALLY INCLUDED IN THE SURGICAL PACKAGE, INDICATE THAT EVALUATION & MANAGEMENT SERVICE WAS PERFORMED DURING A POSTOPERATIVE PERIOD REASON RELATED ORIGINAL PROCEDURE 015 [facility] PHOTOREFRACTIVE KERATECTOMY (PRK) [facility] PHYS/OTH QUALIFIED HEALTH WOOL FLEECE SORTER QUALIFIED,EDUCATION,TR AIN,LICENSURE/REGULATI ON (WHEN APPLICABLE) EDUC SER RENDERED TO PATS IN A GRP SETTING (EG,,OBESITY,O R DIABETIC INSTRUCT) [facility] SCANNING COMPUTERIZED OPHTHALMIC DIAGNOSTIC IMAGING, POSTERIOR SEGMENT, WITH INTERPRETATION AND REPORT, UNILATERAL OR BILATERAL; OPTIC NERVE [facility] INDIVIDUAL PSYCHOTHERAPY, INSIGHT ORIENTED, BEHAVIOR MODIFYING AND/OR SUPPORTIVE, IN AN OFFICE OR OUTPATIENT FACILITY, APPROXIMATELY 45 TO 50 MINUTES [id number] WITH THE PATIENT [facility] INDIVIDUAL PSYCHOTHERAPY, INSIGHT ORIENTED, BEHAVIOR MODIFYING AND/OR SUPPORTIVE, IN AN OFFICE OR OUTPATIENT FACILITY, APPROXIMATELY 45 TO 50 MINUTES [id number] WITH THE PATIENT [facility] INDIVIDUAL PSYCHOTHERAPY, INSIGHT ORIENTED, BEHAVIOR MODIFYING AND/OR SUPPORTIVE, IN AN OFFICE OR OUTPATIENT FACILITY, APPROXIMATELY 20 TO 30 MINUTES [id number] WITH THE PATIENT [facility] PATIENT EDUCATION, NOT OTHERWISE CLASSIFIED, NON-PHYSICIAN PROVIDER, INDIVIDUAL, PER SESSION [facility] PURE TONE AUDIOMETRY (THRESHOLD); AIR ONLY [facility] DETERMINATION OF REFRACTIVE STATE [facility] EXCISION, OTHER BENIGN LESION INCLUDING MARGINS, EXCEPT SKIN TAG (UNLESS LISTED ELSEWHERE), FACE, EARS, EYELIDS, NOSE, LIPS, MUCOUS MEMBRANE; EXCISED DIAMETER 0.6 TO 1.0 CM [facility] PSYCHIATRIC DIAGNOSTIC INTERVIEW EXAMINATION [facility] PSYCHIATRIC EVALUATION OF HOSPITAL RECORDS, OTHER PSYCHIATRIC REPORTS, PSYCHOMETRIC AND/OR PROJECTIVE TESTS, AND OTHER ACCUMULATED DATA FOR MEDICALDIAGNOSTIC PURPOSES [facility] BRIEF EMOTIONAL/BEHAVIORAL ASSESSMENT (EG, DEPRESSION INVENTORY, ATTENTION-DEFICIT/HYPE RACTIVITY DISORDER [ADHD] SCALE), WITH SCORING AND DOCUMENTATION, PER STANDARDIZED INSTRUMENT [facility] BRIEF EMOTIONAL/BEHAVIORAL ASSESSMENT (EG, DEPRESSION INVENTORY, ATTENTION-DEFICIT/HYPE RACTIVITY DISORDER [ADHD] SCALE), WITH SCORING AND DOCUMENTATION, PER STANDARDIZED INSTRUMENT [facility] NEUROPSYCHOLOGICAL TESTING (EG, [place] CARD SORTING TEST), ADMINISTERED BY A COMPUTER, WITH QUALIFIED HEALTH WOOL FLEECE SORTER INTERPRETATION AND REPORT [facility] BRIEF EMOTIONAL/BEHAVIORAL ASSESSMENT (EG, DEPRESSION INVENTORY, ATTENTION-DEFICIT/HYPE RACTIVITY DISORDER [ADHD] SCALE), WITH SCORING AND DOCUMENTATION, PER STANDARDIZED INSTRUMENT [facility] PHYSICAL THERAPY EVALUATION:LOW COMPLEXITY,REQ:HIST W NO PERS FACT &/COMORB THAT IMPACT PLAN OF CARE;CLIN DECIS MAKING OF LOW COMPLEXITY,TYPICALLY,2 0 MIN ARE SPENT [id number] W THE PATIENT &/FAMILY [facility] PARING OR CUTTING OF BENIGN HYPERKERATOTIC LESION (EG, CORN OR CALLUS); SINGLE LESION [facility] PREPARATION OF REPORT OF PATIENT'S PSYCHIATRIC STATUS, HISTORY, TREATMENT, OR PROGRESS (OTHER THAN FOR LEGAL OR CONSULTATIVE PURPOSES) FOR OTHER INDIVIDUALS, AGENCIES, OR INSURANCE CARRIERS [facility] BRIEF EMOTIONAL/BEHAVIORAL ASSESSMENT (EG, DEPRESSION INVENTORY, ATTENTION-DEFICIT/HYPE RACTIVITY DISORDER [ADHD] SCALE), WITH SCORING AND DOCUMENTATION, PER STANDARDIZED INSTRUMENT [facility] PSYCHOTHERAPY, 45 MINUTES WITH PATIENT WHEN PERFORMED WITH AN EVALUATION AND MANAGEMENT SERVICE (LIST SEPARATELY IN ADDITION TO THE CODE FOR PRIMARY PROCEDURE) [facility] DETERMINATION OF REFRACTIVE STATE [facility] BRIEF EMOTIONAL/BEHAVIORAL ASSESSMENT (EG, DEPRESSION INVENTORY, ATTENTION-DEFICIT/HYPE RACTIVITY DISORDER [ADHD] SCALE), WITH SCORING AND DOCUMENTATION, PER STANDARDIZED INSTRUMENT [facility] BRIEF EMOTIONAL/BEHAVIORAL ASSESSMENT (EG, DEPRESSION INVENTORY, ATTENTION-DEFICIT/HYPE RACTIVITY DISORDER [ADHD] SCALE), WITH SCORING AND DOCUMENTATION, PER STANDARDIZED INSTRUMENT [facility] PSYCHOTHERAPY, 45 MINUTES WITH PATIENT WHEN PERFORMED WITH AN EVALUATION AND MANAGEMENT SERVICE (LIST SEPARATELY IN ADDITION TO THE CODE FOR PRIMARY PROCEDURE) [facility] BRIEF EMOTIONAL/BEHAVIORAL ASSESSMENT (EG, DEPRESSION INVENTORY, ATTENTION-DEFICIT/HYPE RACTIVITY DISORDER [ADHD] SCALE), WITH SCORING AND DOCUMENTATION, PER STANDARDIZED INSTRUMENT [facility] PSYCHOTHERAPY, 30 MINUTES WITH PATIENT WHEN PERFORMED WITH AN EVALUATION AND MANAGEMENT SERVICE (LIST SEPARATELY IN ADDITION TO THE CODE FOR PRIMARY PROCEDURE) [facility] THERAPEUTIC PROCEDURE, 1 OR MORE AREAS, EACH 15 MINUTES; THERAPEUTIC EXERCISES TO DEVELOP STRENGTH AND ENDURANCE, RANGE OF MOTION AND FLEXIBILITY [facility] PSYCHOTHERAPY, 60 MINUTES WITH PATIENT [facility] PSYCHOTHERAPY, 45 MINUTES WITH PATIENT [facility] POSTOPERATIVE FOLLOW-UP VISIT, NORMALLY INCLUDED IN THE SURGICAL PACKAGE, INDICATE THAT EVALUATION & MANAGEMENT SERVICE WAS PERFORMED DURING A POSTOPERATIVE PERIOD REASON RELATED ORIGINAL PROCEDURE [facility] FOOT, ARCH SUPPORT, REMOVABLE, PREMOLDED, LONGITUDINAL, EACH [...] A POSTOPERATIVE PERIOD REASON RELATED ORIGINAL PROCEDURE [facility] PSYCHOTHERAPY, 60 MINUTES WITH PATIENT DoD PSYCHIATRIC DIAGNOSTIC EVALUATION DoD TELE ASSESS & MGT SRV PROV QUAL NONPHYS HLTH CARE PRO TO EST PAT,PARENT,GUARD NOT ORIG REL ASSESS & MGT SRV PROV W/IN PREV 7 DAYS NOR LEAD ASSESS & MGT SRV/PX W/IN NXT 24H/SOON APT; 11-20 MIN MED DIS [facility] OPHTHALMOLOGICAL SERVICES: MEDICAL EXAMINATION AND EVALUATION, WITH INITIATION OR CONTINUATION OF DIAGNOSTIC AND TREATMENT PROGRAM; COMPREHENSIVE, ESTABLISHED PATIENT, 1 OR MORE VISITS DoD PSYCHOTHERAPY, 60 MINUTES WITH PATIENT DoD PSYCHOTHERAPY, 30 MINUTES WITH PATIENT [facility] PSYCHIATRIC DIAGNOSTIC EVALUATION [facility] FITTING OF SPECTACLES, EXCEPT FOR APHAKIA; MONOFOCAL [facility] PHARMACOLOGIC MANAGEMENT, INCLUDING PRESCRIPTION AND REVIEW OF MEDICATION, WHEN PERFORMED WITH PSYCHOTHERAPY SERVICES (LIST SEPARATELY IN ADDITION TO THE CODE FOR PRIMARY PROCEDURE) [facility] PSYCHOLOGICAL TSTING (INCL PSYCHODIAG ASSESSMNT, EMOTITY, INTELLECTUAL ABILITIES, PERSONALITY &PSYCHOPATHOLOGY, EG, MMPI), ADMINISTERED COMPUTER, W QUALIFIED HEALTH WOOL FLEECE SORTER INTERPRET &RPT [facility] PSYCHIATRIC EVALUATION OF HOSPITAL RECORDS, OTHER PSYCHIATRIC REPORTS, PSYCHOMETRIC AND/OR PROJECTIVE TESTS, AND OTHER ACCUMULATED DATA FOR MEDICALDIAGNOSTIC PURPOSES DoD PSYCHOTHERAPY, 60 MINUTES WITH PATIENT 013 DoD PSYCHOTHERAPY, 60 MINUTES WITH PATIENT 013 DoD PSYCHOTHERAPY, 60 MINUTES WITH PATIENT DoD PHARMACOLOGIC MANAGEMENT, INCLUDING PRESCRIPTION AND REVIEW OF MEDICATION, WHEN PERFORMED WITH PSYCHOTHERAPY SERVICES (LIST SEPARATELY IN ADDITION TO THE CODE FOR PRIMARY PROCEDURE) [facility] PSYCHIATRIC DIAGNOSTIC INTERVIEW EXAMINATION [facility] INDIVIDUAL PSYCHOTHERAPY, INSIGHT ORIENTED, BEHAVIOR MODIFYING AND/OR SUPPORTIVE, IN AN OFFICE OR OUTPATIENT FACILITY, APPROXIMATELY 20 TO 30 MINUTES [id number] W THE PATIENT; W MED EVAL & MGT SER [facility] PHARMACOLOGIC MANAGEMENT, INCLUDING PRESCRIPTION, USE, AND REVIEW OF MEDICATION WITH NO MORE THAN MINIMAL MEDICAL PSYCHOTHERAPY [facility] PSYCHOLOGICAL TSTING (INCL PSYCHODIAG ASSESSMNT, EMOTITY, INTELLECTUAL ABILITIES, PERSONALITY &PSYCHOPATHOLOGY, EG, MMPI), ADMINISTERED COMPUTER, W QUALIFIED HEALTH WOOL FLEECE SORTER INTERPRET &RPT [facility] PSYCHIATRIC DIAGNOSTIC INTERVIEW EXAMINATION [facility] Social History Combined list of available smoking, tobacco, and other social history from [facility] of Defense and [facility] facilities. Social History Type Response Date Comment Sour e Tobacco smoking status [facility] FORMER USER 12/27/2022 [facility] History of tobacco use [place] QU[place] 1 5 YRS OR MORE 12/27/2022 [facility] History of tobacco use [place] FORMER USER 02/23/2022 [facility] History of tobacco use [place] NEVER USED 01/14/2021 [facility] History of tobacco use [place]ACCO QUIT 5 TO < 15 YRS 06/13/2019 [facility] History of tobacco use [place]-TO[place]AC[place] QUIT 5 TO < 15 YRS 06/13/2018 [facility] This section is an empty social history section. DoD
== END 2024-01-14 12:52 | disposition home or self-care (01) ==
LOC: ED 12:47
PROVIDERS: Emergency Provider Emergency Medicine Emergency Medical Services; PCP Family Medicine
DX: S61.012A Laceration without foreign body of left thumb without damage to nail, initial encounter (principal); W26.0XXA Contact with knife, initial encounter
CPT/HCPCS: 12001; 99283; 99284

== ENCOUNTER 2024-01-18 19:24 | Emergency (ER) | payer OTHER, SELFPAY ==
[2024-01-18 19:45] VITALS: BP 133/84; PULSE 84; RESP 16; TEMP 36.4; O2SAT 96; BMI 30.3
--- NOTE | 2024-01-18 21:19 | ED.SKABFB ---
HPI - Skin/Abscess/Foreign Bdy General Time Seen by Provider: 21:19 Date Seen: 01/18/24 Chief complaint: Skin/Abscess/Foreign Body Stated complaint: L thumb lac-sat. in ER. Feverish and painful Time Seen by Provider: 01/18/24 21:18 Source: patient, RN notes reviewed and old records reviewed Mode of arrival: ambulatory Limitations: no limitations History of Present Illness HPI narrative: This 48-year-old male is coming in with complaint of throbbing left thumb pain. He was cutting an onion where he cut the end of his finger off, ER note from January 13 reviewed. It would not stop bleeding, the actually had apply a tourniquet, inject lidocaine with epinephrine into the base, used cautery with silver nitrate as well as Dermabond over this. He notes he had a fever up to 101 yesterday. He notes no other reason for fevers such as any sore throat, no respiratory symptoms, no GI symptoms. He has been alternating Tylenol and ibuprofen every 2 hours, is not managing the pain. They have been using nonstick Vaseline gauze as, then gauze, then vet wrap tape. complaint: laceration Related Data Home Medications ?Medication ?Instructions ?Recorded ?Confirmed bupropion HCl 300 mg 24 hr tablet, 450 mg PO DAILY 12/03/22 10/19/23 extended release dextroamphetamine-amphetamine ER 30 mg PO DAILY 12/03/22 10/19/23 30 mg 24hr capsule,extend release (Adderall XR) escitalopram oxalate 5 mg tablet 5 mg PO DAILY 12/03/22 10/19/23 (Lexapro) loratadine 10 mg tablet 10 mg PO DAILY 12/03/22 10/19/23 aspirin 81 mg tablet,delayed 81 mg PO QDAY 10/19/23 10/19/23 release (Adult Low Dose Aspirin) omeprazole magnesium [Acid Geothermal Operations Engineer PO 10/19/23 10/19/23 (omeprazole)] Allergies Allergy/AdvReac Type Severity Reaction Status Date / Time No Known Drug Allergies Allergy Verified 12/03/22 16:22 Review of Systems Narrative: As per HPI. PFSH PFSH Social History Smoking Status: Former smoker How often do you have a drink containing alcohol: monthly or less AUDIT-C Alcohol total score: 1 Non-prescribed substance use: denies use Exam Const: Vital Signs, click to edit/add: Vital Signs - 24 hr 01/18/24 19:45 Temperature 97.5 F L Pulse Rate [Pulse Oximeter] 84 Respiratory Rate 16 Blood Pressure [Ri ght Upper Arm] 133/84 Pulse Oximetry 96 Oxygen Delivery Me thod Room Air This 48-year-old male is alert, interactive, no apparent distress. Face atraumatic, able to speak in complete sentences. CV regular rate and rhythm, no murmur, normal S1-S2, no S3-S4. Lungs are clear anteriorly. Inspection of his left thumb does show some mild swelling of the bulb of the thumb in comparison to his right thumb. He cut down through the nail on the medial portion and through into the subcutaneous tissue, the nail bed itself. There is an eschar over this wound, no drainage. There is no extensive erythema noted. The wound itself is dry. The rest of the nail bed looks to be normal, no subungual hematoma. His hand elsewhere is not erythematous, has good retained range of motion throughout all digits and his hand. The thumb feels warm but not necessarily more so than the surrounding digits. Documenting provider has reviewed patient's vital signs: yes Course Course ED Course: Discussed with patient that given the fever yesterday, certainly does make me concern for some possible developing infection. He really has no other identifiable source that he is aware of. Discussed that we would cover with Keflex and give him some pain management with oxycodone. This will be prescribed from [employer]. Will have him take Keflex 500 mg, 1 pill 3 times a day, 20 prescribed. Will give him 8 tablets of oxycodone 5 mg to be used 1 pill every 4-6 hours as needed overnight. We did discuss risks and benefits of this medicine. He is aware it is a narcotic, cannot operate or drive machinery. He denies any history of any narcotic dependence or abuse. Vital Signs Vital signs: Initial Vital Signs Temperature 97.5 F L 01/18/24 19:45 Temperature Source Temporal Artery Scan 01/18/24 19:45 Pulse Rate 84 01/18/24 19:45 Respiratory Rate 16 01/18/24 19:45 Blood Pressure 133/84 01/18/24 19:45 Blood Pressure Mean 100 01/18/24 19:45 Blood Pressure Position Sitting 01/18/24 19:45 Pulse Oximetry 96 01/18/24 19:45 Oxygen Delivery Method Room Air 01/18/24 19:45 Vital Signs Temperature 97.5 F L 01/18/24 19:45 Pulse Rate 84 01/18/24 19:45 Respiratory Rate 16 01/18/24 19:45 Blood Pressure 133/84 01/18/24 19:45 Pulse Oximetry 96 01/18/24 19:45 Oxygen Delivery Method Room Air 01/18/24 19:45 Temperature 97.5 F L 01/18/24 19:45 Pulse Rate 84 01/18/24 19:45 Respiratory Rate 16 01/18/24 19:45 Blood Pressure 133/84 01/18/24 19:45 Pulse Oximetry 96 01/18/24 19:45 Oxygen Delivery Method Room Air 01/18/24 19:45 Discharge Plan Discharge Clinical Impression: Fever, Avulsion of skin of finger Patient Disposition: Home, Self-Care Condition: Stable Instructions: Wound Infection (ED), Skin Avulsion (ED) Additional Instructions: Continue with the wound management that you have been doing. Start Keflex 500 mg 3 times a day and complete this. Have provided oxycodone 5 mg, follow-up prescription instructions with this. This is a narcotic, do not drive or operate machinery while using. Recommend you try this at bedtime to help you sleep. During the daytime take Tylenol and ibuprofen. Nausea and constipation or common side effects. May need to use MiraLax and or senna while on the oxycodone. It is fine to continue with Tylenol and ibuprofen per bottle directions with the oxycodone. If you feel your thumb is worsening, ongoing concerns for worsening infection, please seek re-evaluation P Activity Level: Activity as Tolerated Prescriptions: No Action aspirin [Adult Low Dose Aspirin] 81 mg tablet,delayed release (DR/EC) 81 mg PO QDAY omeprazole magnesium [Acid Geothermal Operations Engineer (omeprazole)] PO loratadine 10 mg tablet 10 mg PO DAILY escitalopram oxalate [Lexapro] 5 mg tablet 5 mg PO DAILY dextroamphetamine-amphetamine [Adderall XR] 30 mg capsule,extended release 24hr 30 mg PO DAILY bupropion HCl 300 mg tablet extended release 24 hr 450 mg PO DAILY Follow Up/Referrals: Cici Hartley DO [Primary Care Provider] - Stand Alone Forms: Effective Measure Info Instructions
--- OUTSIDE RECORDS SUMMARY | 2024-01-18 21:34 | XMS_ITS | Continuity of Care Document ---
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 It does not include entries that were removed or entered in error. Problem Status Onset Date Problem Type Date of Resolution Comments Source Exposure to potentially hazardous substance ([facility] [id number]) Active 06/16/19 24 Condition Jun 16, 2023 Entered By: HOLLAND LOPEZ Comment: [facility] Documentation Initiative [facility] Pain in left ankle and joints of left foot Active 08/31/19 17 Condition [facility] Allergic rhinitis Active Condition Attention deficit hyperactivity disorder, predominantly inattentive type Active Condition [facility] Depression Active Condition [facility] Erectile dysfunction Active Condition [facility] Family social history Active Condition Jan 14, 2021 Entered By: JOHN CESAR Comment: 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 2 kids.Dec 27, 2022 Entered By: JOHN CESAR Comment: M Aunt w SLE, Mother w MS. +moms side w autoimmune disease. MGF CVA. Dad + depression. 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 [place]ed [place] Entered By: JOHN CESAR Comment: Quit smoking 2009. Over 100 cig/lifetime. No etoh. [facility] Migraine Active Condition [facility] Osteoarthritis Active Condition [facility] Osteoarthritis Active Condition Jun 102018 Entered By: PASCUAL TROTTER Comment: hands [facility] Pes planus Active Condition Feb 01 Entered By: CLAUDIA MUNROE Comment: bilateral, appears to cause left ankle pains [facility] Posttraumatic stress disorder Active Condition [facility] Primary erectile dysfunction Active Condition [facility] Seasonal allergic rhinitis Active Condition [facility] Spasm of bladder Active Condition [facility] Strain of tendon of foot and ankle Active Condition [facility] skin disorders appendage hair follicle folliculitis Inactive [...] abx are complete. No shaving waiver needed. [facility] migraine headache Active Condition [place] [facility]: - Diagnosis based on chief [...] preceptor - Patient verbalized agreement and understanding [facility] no psychiatric diagnosis or condition on axis I Inactive Condition [facility] Need For Prophylactic Measure Inactive Condition [facility] visit for: issue medical certificate Inactive Condition [facility] assessment of patient condition work status Active Condition [facility] deviated nasal septum Active Condition [facility] lateral epicondylitis (tennis elbow) left Active Condition [facility] visit for: issue medical certificate fitness Inactive Condition [facility] visit for: issue repeat prescription for medication Inactive Condition [facility] pharyngitis Inactive Condition [facility] upper respiratory infection Inactive Condition [facility] axis V global assess of functioning (GAF) scale ___ (100-0) Active Condition [facility] psychiatric diagnosis or condition deferred on axis II Active Condition [facility] Administrative Evaluation Services Inactive Condition [facility] male erectile disorder Active Condition [facility] prostatitis Active Condition [facility] bladder disorders Active Condition [facility] assess patient condition work-related occupational disease Active Condition [facility] conditions influencing health status Active Condition [facility] visit for: screening exam traumatic brain injury Active Condition [facility] visit for: examination of subpopulation Active Condition [facility] urethritis Inactive Condition DoD pain during urination (dysuria) Active Condition [facility] urinary tract infection Inactive Condition [facility] visit for: services physical pre-deployment Active Condition [facility] tendonitis Active Condition DoD joint pain, localized in the wrist Active Condition DoD tenosynovitis de Quervain's Inactive Condition DoD rhythm disorder Active Condition DoD primary snoring Active Condition DoD post-traumatic stress disorder Active Condition [facility] visit for: occupational health / fitness exam [...] vs. other. Patient concerned for [facility] for ongoing eval and mgmtNeed assessment for WWQ statusAt risk for PTSD? At risk for TBI[31yo AD male with chronic major depression on Wellbutrin and Celexa, ambien and prn xanax -- requesting psychiatry eval for ongoing eval and tx -- assess and comment on WWQ status.] [facility] closed fracture distal phalanx 2nd finger Inactive Condition [facility] primary insomnia Inactive Condition [facility] allergic rhinitis Active Condition [facility] sciatica Inactive Condition [facility] Patient Counseling: Active Condition DoD insomnia Active Condition history of insomnia has done well on this med in the past, needs refill DoD depression Active Condition history o f depression and anxiety, not suicidal or homicidal recently pcs'd needs refill of meds, will temp refill as this is an acute sick call slot, patient will make a routine appt with his PCM [facility] visit for: screening exam depression Inactive Condition DoD lateral epicondylitis (tennis elbow) right Inactive Condition [facility]SA prn. ice. handout. discussed dx and rehab today. [facility] visit for: services physical Active Condition [facility] visit for: administrative purpose Inactive Condition Patient received all post deployment couseling as required [facility] visit for: services flight physical Inactive Condition [facility] astigmatism regular Active Condition [facility] refractive error - myopia Active Condition [facility] alcohol abuse Active Condition [facility] Diagnosis: ICD-10-CM F43.12 Post-traumatic stress disorder, chronic Active Diagnosis [facility] Diagnosis: ICD-10-CM F33.9 Major depressive disorder, recurrent, unspecified Active Diagnosis [facility] Diagnosis: ICD-10-CM 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 Diagnosis [facility] Medications Combined list of outpatient medications from [...] DAY ORAL ACTIVE SAM CESAR F 2020 [facility] BUPROPION HCL 150MG 24HR TAB,SA TAKE THREE TABLETS BY MOUTH EVERY MORNING FOR MOOD ORAL ACTIVE 06/09/2024 [id number] Neda CHESTER T 2023 270 [facility] BUPROPION HCL 150MG 24HR TAB,SA TAKE THREE TABLETS BY MOUTH EVERY MORNING FOR MOOD ORAL DISCONT INUED 04/20/2024 [id number] Neda CHESTER T 2023 270 [facility] BUPROPION HCL 150MG 24HR TAB,SA TAKE THREE TABLETS BY MOUTH EVERY MORNING FOR MOOD ORAL 02/18/2023 [id number] MATTHIEU SALAS 2021 270 [facility] DEXTROAMPHE TAMINE-AMPH ET ER (dextroamph etamine sulf-saccha rate/amphet amine sulf-aspart ate), 20 MG, CAP ER 24H, ORAL, [employer], 100 ea. BOTTLE Active [id number] 2023 14 Pharmac y Data Transac tion Service Facilit y DEXTROAMPHE TAMINE-AMPH ET ER (dextroamph etamine sulf-saccha rate/amphet amine sulf-aspart ate), 30 MG, CAP ER 24H, ORAL, [employer], 100 ea. BOTTLE Active [id number] 2023 20 Pharmac y Data Transac tion Service Facilit y DEXTROAMPHE TAMINE-AMPH ET ER (dextroamph etamine sulf-saccha rate/amphet amine sulf-aspart ate), 30 MG, CAP ER 24H, ORAL, [employer], 100 ea. BOTTLE Cancele d [id number] : 2023 0 Pharmac y Data Transac tion Service Facilit y DEXTROAMPHE TAMINE-AMPH ET ER (dextroamph etamine sulf-saccha rate/amphet amine sulf-aspart ate), 30 MG, CAP ER 24H, ORAL, [employer], 100 ea. BOTTLE Active [id number] 2023 30 Pharmac y Data Transac tion Service Facilit y DEXTROAMPHE TAMINE-AMPH ET ER (dextroamph etamine sulf-saccha rate/amphet amine sulf-aspart ate), 30 MG, CAP ER 24H, ORAL, [employer], 100 ea. BOTTLE Active [id number] 2023 30 Pharmac y Data Transac tion Service Facilit y DEXTROAMPHE TAMINE-AMPH ET ER (dextroamph etamine sulf-saccha rate/amphet amine sulf-aspart ate), 30 MG, CAP ER 24H, ORAL, [employer], 100 ea. BOTTLE Active [id number] 2023 10 Pharmac y Data Transac tion Service Facilit y ESCITALOPRA M OXALATE 10MG TAB TAKE ONE TABLET BY MOUTH EVERY DAY FOR MOOD ORAL DISCONT INUED (EDIT) 07/25/2024 [id number] Neda CHESTER T 2023 90 [facility] ESCITALOPRA M OXALATE 10MG TAB TAKE ONE TABLET BY MOUTH EVERY DAY FOR MOOD ORAL DISCONT INUED (EDIT) 09/07/2023 [id number] Neda CHESTER T 2023 90 [facility] ESCITALOPRA M OXALATE 20MG TAB TAKE ONE TABLET BY MOUTH EVERY DAY FOR MOOD ORAL ACTIVE 09/19/2024 [id number] Neda CHESTER T 2023 90 [facility] ESCITALOPRA M OXALATE 5MG TAB TAKE ONE TABLET BY MOUTH AT BEDTIME FOR DEPRESSI ON ORAL 05/26/2023 [id number] RENARDLATHAANAMATTHIEU Torres Casandra 2022 90 [facility] LORATADINE 10MG TAB TAKE ONE TABLET BY MOUTH EVERY DAY NEEDED FOR ALLERGIE S ORAL 02/24/2023 [id number] SAM CESAR Jose Cruz 2021 90 [facility] METOPROLOL SUCCINATE (METOPROLOL SUCCINATE), 25 MG, TAB ER 24H, ORAL, [facility], 500 ea. BOTTLE Cancele d [id number] : 2023 0 Pharmac y Data Transac tion Service Facilit y METOPROLOL SUCCINATE (METOPROLOL SUCCINATE), 25 MG, TAB ER 24H, ORAL, [facility], 500 ea. BOTTLE Active [id number] 2023 120 Pharmac y Data Transac tion Service Facilit y OMEPRAZOLE 20MG CAP,EC TAKE 1 CAPSULE BY MOUTH EVERY DAY ORAL ACTIVE SAM CESAR 2022 [facility] SILDENAFIL CITRATE 100MG TAB TAKE ONE TABLET BY MOUTH NEEDED - TAKE 1 HOUR BEFORE ANTICIPA TISHA SEXUAL ACTIVITY --MAXIMU M 6 DOSES FOR 30-DAY SUPPLY. FOR ERECTION S ORAL 12/28/2023 [id number] SAM CESAR Jose Cruz 2022 18 [facility] Allergies, Adverse Reactions, Alerts Combined list of allergies from Department of Defense and Veterans Affairs facilities. It does not include entries that were removed or entered in error. Substance Category Reaction Severity Reaction type Status Date Reported Comments Source [facility] Propensity to adverse reaction (finding) Itching of eye active 7 [facility] {Cla } Allergy to substance (disorder) Unknown active 3 [facility] Immunizations Combined list of available immunizations from the Department of Defense and Veterans Affairs facilities. Immunization Series Date Given Administered By Site Reaction Lot Number CVX Code Drug Strap Setter Status Comments Source INFLUENZA, INJECTABLE, QUADRIVALENT, PRESERVATIVE FREE 2021 150 complet ed [facility] TDAP 2021 115 complet ed [facility] COVID-19 (PFIZER), MRNA, LNP-S, PF, 30 MCG/0.3 ML DOSE 3 2020 208 complet ed PFR; [id number]; 2 [facility] INFLUENZA, INJECTABLE, QUADRIVALENT, PRESERVATIVE FREE 2020 150 complet ed [facility] COVID-19 (PFIZER), MRNA, LNP-S, PF, 30 MCG/0.3 ML DOSE 2 2020 208 complet ed PFR; [id number]; 1 [facility] COVID-19 ([facility]), MRNA, LNP-S, PF, 30 MCG/0.3 ML DOSE 1 2020 208 complet ed PFR; [id number]; 1 [facility] INFLUENZA, INJECTABLE, QUADRIVALENT, PRESERVATIVE FREE 2019 150 complet ed [facility] INFLUENZA, SEASONAL, INJECTABLE, PRESERVATIVE FREE 2018 140 complet ed [facility] Influenza, injectable, Madin [place] Canine Kidney, quadrivalent with preservative 1 2016 [id number] Seqirus (SEQ) comple t ed Influenza , injectabl e, Madin [place] Canine Kidney, quadrival ent with preservat mi DoD TD(ADULT) UNSPECIFIED FORMULATION 2016 139 complet ed [facility] tetanus and diphtheria toxoids, adsorbed, preservative free, for adult use (2 Lf of tetanus toxoid and 2 Lf of diphtheria toxoid) 3 2016 [id number] Sanofi Pasteur ([facility]) complet ed tetanus and diphtheri a toxoids, adsorbed, preservat mi free, for adult use (2 Lf of tetanus toxoid and 2 Lf of diphtheri a toxoid) DoD Influenza, seasonal, injectable 0 2015 [id number] 141 [employer] (SEQ) complet ed Influenza , seasonal, injectabl e DoD influenza, live, intranasal, quadrivalent 1 2014 [id number] 149 MedImmune, Inc. (MED) complet ed influenza , live, intranasa l, quadrival ent DoD influenza, live, intranasal, quadrivalent 18 2013 [id number] 149 MedImmun[employer], Inc. (MED) complet ed influenza , live, intranasa l, quadrival ent DoD measles, mumps and rubella virus vaccine 2 2013 [id number] 03 Merck (MSD) complet ed measles, mumps and rubella virus vaccine DoD anthrax vaccine 6 2013 [id number] 24 [facility] ([facility]) complet ed anthrax vaccine DoD typhoid Vi capsular polysaccharid e vaccine 8 2013 [id number] 101 Sanofi Pasteur ([facility]) complet ed typhoid Vi capsular polysacch aride vaccine DoD Influenza, seasonal, injectable, preservative free 17 2012 [id number] 140 [employer]. (NOV) complet ed Influenza , seasonal, injectabl e, preservat mi free DoD influenza virus vaccine, live, attenuated, for intranasal use 17 2011 [id number] 111 [employer]. (MED) complet ed influenza virus vaccine, live, attenuate d, for intranasa l use DoD tuberculin skin test; purified protein derivative solution, intradermal 6 2011 Unknown, Provider [id number] 96 Sanofi Pasteur ([facility]) complet ed tuberculi n skin test; purified protein derivativ e solution, intraderm al DoD Influenza, seasonal, injectable, preservative free 1 2010 140 Transcribed (TRS) complet ed Influenza , seasonal, injectabl e, preservat mi free DoD influenza virus vaccine, split virus (incl. purified surface antigen)-reti red CODE 1 2010 [id number] 15 [facility] [employer] (CS) complet ed influenza virus vaccine, split virus (incl. purified surface antigen)- retired CODE DoD anthrax vaccine 5 2010 [id number] 24 Emergent BioDef[employer] [facility] ([facility]) complet ed anthrax vaccine DoD typhoid Vi capsular polysaccharid e vaccine 1 2010 [id number] 101 Sanofi Pasteur ([facility]) complet ed typhoid Vi capsular polysacch aride vaccine DoD anthrax vaccine 5 2007 [id number] 24 [facility] ([facility]) complet ed anthrax vaccine DoD typhoid Vi capsular polysaccharid e vaccine 1 2007 [id number] 101 Sanofi Pasteur ([facility]) complet ed typhoid Vi capsular polysacch aride vaccine DoD influenza virus vaccine, live, attenuated, for intranasal use 1 2007 [id number] 111 [employer] (MED) complet ed influenza virus vaccine, live, attenuate d, for intranasa l use DoD anthrax vaccine 4 2006 [id number] 24 [facility] ([facility]) complet ed anthrax vaccine DoD influenza virus vaccine, live, attenuated, for intranasal use 0 2006 [id number] 111 [facility] (B) complet ed influenza virus vaccine, live, attenuate d, for intranasa l use DoD anthrax vaccine 3 2006 [id number] 24 [facility] ([facility]) complet ed anthrax vaccine DoD tetanus toxoid, reduced diphtheria toxoid, and acellular pertu is vaccine, adsorbed 1 2006 [id number] 115 Sanofi Pasteur ([facility]) complet ed tetanus toxoid, reduced diphtheri a toxoid, and acellular pertussis vaccine, adsorbed DoD anthrax vaccine 1 2006 UNK 24 [facility] ([facility]) complet ed anthrax vaccine DoD varicella virus vaccine 0 2005 21 () Not Given varicella virus vaccine DoD tuberculin skin test; purified protein derivative solution, intradermal 1 2005 Unknown, Provider [id number] 96 Sanofi Pasteur ([facility]) complet tuberculi n skin test; purified protein derivativ e solution, intraderm al [facility] influenza virus vaccine, live, attenuated, for intranasal use 1 2005 [id number] 111 [employer] (MED) complet ed influenza virus vaccine, live, attenuate d, for intranasa l use DoD anthrax vaccine 1 2005 [id number] 24 [facility] ([facility]) complet ed anthrax vaccine DoD typhoid Vi capsular polysaccharid e vaccine 1 2005 [id number] 101 Sanofi Pasteur (PMC) complet ed typhoid Vi capsular polysacch aride vaccine DoD influenza virus vaccine, live, attenuated, for intranasal use 1 2004 [id number] 111 [employer] (MED) complet ed influenza virus vaccine, live, attenuate d, for intranasa l use [facility] influenza virus vaccine, split virus (incl. purified surface antigen)-reti red CODE 1 2003 [id number] 15 Sanofi Pasteur ([facility]) complet ed influenza virus vaccine, split virus (incl. purified surface antigen)- retired CODE [facility] influenza virus vaccine, whole virus 0 2003 [id number] 16 Sanofi Pasteur ([facility]) complet ed influenza virus vaccine, whole virus DoD vaccinia (smallpox) vaccine 0 2003 [id number] 75 [employer] (WAL) complet ed vaccinia (smallpox ) vaccine DoD typhoid vaccine, parenteral, other than acetone-kille d, dried 0 2003 [id number] 41 Sanofi Pasteur ([facility]) complet ed typhoid vaccine, parentera l, other than acetone-k illed, dried DoD tuberculin skin test; purified protein derivative solution, intradermal 1 2003 Unknown, Provider [id number] 96 Teresa () complet ed tuberculi n skin test; purified protein derivativ e solution, intraderm al [facility] rabies vaccine, for intramuscular injection RETIRED CODE 3 2003 [id number] 18 [employer] (CON) complet ed rabies vaccine, for intramusc ular injection RETIRED CODE DoD [place] Encephalitis Vaccine SC 3 2003 [id number] 39 Sanofi Pasteur ([facility]) complet ed [place] Encephali tis Vaccine [facility] rabies vaccine, for intramuscular injection RETIRED CODE 2 2003 [id number] 18 [place] (CON) complet ed rabies vaccine, for intramusc ular injection RETIRED CODE [facility] [place] Encephalitis Vaccine SC 2 2003 [id number] 39 Sanofi Pasteur ([facility]MC) complet ed [place] Encephali tis Vaccine SC [facility] rabies vaccine, for intramuscular injection RETIRED CODE 1 2003 [id number] 18 [place] (CON) complet ed rabies vaccine, for intramusc ular injection RETIRED CODE DoD [place] Encephalitis Vaccine SC 1 2003 [id number] 39 Sanofi Pasteur ([facility]MC) complet ed [place] Encephali tis Vaccine [place] [facility] influenza virus vaccine, whole virus 0 2002 [id number] 16 [employer] (PW) complet ed influenza virus vaccine, whole virus [facility] tuberculin skin test; purified protein derivative solution, intradermal 1 2002 Unknown, Provider 96 () complet ed tuberculi n skin test; purified protein derivativ e solution, intraderm al DoD influenza virus vaccine, whole virus 0 2001 [id number] 16 Sanofi Pasteur ([facility]) complet ed influenza virus vaccine, whole virus DoD tuberculin skin test; purified protein derivative solution, intradermal 1 2001 Unknown, Provider 96 () complet ed tuberculi n skin test; purified protein derivativ e solution, intraderm al DoD typhoid Vi capsular polysaccharid e vaccine 0 2001 [id number] Sanofi Pasteur ([facility]) complet ed typhoid Vi capsular polysacch aride vaccine DoD influenza virus vaccine, whole virus 0 2000 [id number] 16 Merck (MSD) complet ed influenza virus vaccine, whole virus DoD influenza virus vaccine, whole virus 0 2000 [id number] 16 [facility] ([facility]) complet ed influenza virus vaccine, whole virus DoD typhoid vaccine, parenteral, other than acetone-kille d, dried 0 1999 [id number] 41 Merieux (IM) complet ed typhoid vaccine, parentera l, other than acetone-k illed, dried DoD tuberculin skin test; purified protein derivative solution, intradermal 1 1999 Unknown, Provider [id number] 96 [facility] complet ed tuberculi n skin test; purified protein derivativ e solution, intraderm al DoD hepatitis B vaccine, adult dosage 3 1999 [id number] 43 [employer] ([facility]) complet ed hepatitis B vaccine, adult dosage DoD influenza virus vaccine, whole virus 0 1998 [id number] 16 [facility]) complet ed influenza virus vaccine, whole virus DoD influenza virus vaccine, whole virus 0 [id number] 16 [facility] ([facility]) complet ed influenza virus vaccine, whole virus DoD typhoid vaccine, parenteral, other than acetone-kille d, dried 0 1997 [id number] 41 Merieux (IM) complet ed typhoid vaccine, parentera l, other than acetone-k illed, dried DoD hepatitis B vaccine, adult dosage 2 1997 [id number] 43 [employer] ([facility]) complet ed hepatitis B vaccine, adult dosage DoD yellow fever vaccine 0 [id number] 37 [employer] (CON) complet ed yellow fever vaccine DoD hepatitis B vaccine, adult dosage 1 1997 [id number] 43 [employer] (B) complet ed hepatitis B vaccine, adult dosage DoD hepatitis A vaccine, adult dosage 2 1997 [id number] 52 Merck (MSD) complet ed hepatitis A vaccine, adult dosage DoD hepatitis A vaccine, adult dosage 1 1996 [id number] 52 [facility] complet ed hepatitis A vaccine, adult [...] Date Status Disposition Source KOJO Glover([facility] ([place]) ) OUTPATIENT [id number] DANIEL CHANG 10/16 Released w/o Limitations KOJO Hightower([facility] ([place])) KOJO Glover([employer] [facility] ([place]) ) OUTPATIENT [id number] DANIEL CHANG 10/16 Released w/o Limitations KOJO Hightower([facility] ([place])) [place] [place] [employer] [facility] ([facility]) ) OUTPATIENT [id number] edema nose bride CLAUDIA MENDEZ 10/16 Released w/o Limitations Jose [facility] KOJO Slade([employer] [facility] ([place] [facility])) Jose [facility] KOJO Spicer([employer] [facility] ([facility]) ) OUTPATIENT [id number] cyst right side of nose. CLAUDIA MENDEZ 10/19 Released w/o Limitations Jose [facility] KOJO Slade([employer] [facility] ([facility] [facility])) Jose [facility] KOJO Spicer([employer] [facility] ([facility]) ) OUTPATIENT [id number] OMAR Burciaga 02/11 Released w/o Limitations Jose [facility] KOJO Slade([employer] [facility] ([facility] [facility])) Jose [facility] KOJO Spicer([employer] [facility] ([facility]) ) OUTPATIENT [id number] [facility] JOHAN SILVA 06/10 Released w/o Limitations Jose [facility] KOJO Slade([employer] [facility] ([place] [facility])) Jose [facility] KOJO Spicer([employer] [facility] ([facility]) ) OUTPATIENT [id number] 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 MATTHIEU SALDANA 11/24 Released w/o Limitations [facility] KOJO Slade([employer] [facility] ([facility] KOJO Spicer([employer] Primary Care ([facility]) ) TELE CONSULT [id number] possibl e food poisoni DELON Ridley 03/02 Jose [facility] KOJO Wood([employer] Primary [facility] ([place])) Jose [facility] KOJO Spicer(Angelina [facility]) OUTPATIENT [id number] FLASH ESTRADA 03/02 Released w/o Limitations [facility] KOJO Wood([place] t [facility] ER) Jose [facility] KOJO Spicer([employer] Primary [facility] ([facility]) ) OUTPATIENT [id number] elbow pain CLAUDIA MENDEZ 03/07 Released w/o Limitations [facility] KOJO Wood([employer] [facility] [employer] ([place])) [facility] KOJO Spicer([employer] Primary Care ([facility]) ) TELE CONSULT [id number] depress MODESTO Machuca Anaya 03/07 Jose [facility] KOJO Wood([employer] [facility] ([place] [facility])) Jose [facility] KOJO Spicer([employer] B Primary Care ([facility]) ) OUTPATIENT [id number] michaela frausto per life skills CLAUDIA MENDEZ 03/08 Released w/o Limitations [facility] KOJO Slade([employer] Primary [facility] ([place])) Jose [facility] KOJO Spicer([employer] B Primary Care ([facility]) ) OUTPATIENT [id number] f/u meds CLAUDIA MENDEZ 05/25 Released w/o Limitations [facility] KOJO Slade([employer] [facility] ([place])) Jose [facility] KOJO Spicer([employer] Flight Medicine [facility] ([facility]) ) TELE CONSULT [id number] ?? re: GRIS Rodriguez 06/23 Jose [facility] KOJO Wood([employer] Flight Medicin e [facility] ([facility] [facility])) Jose [facility] KOJO Spicer([employer] B Primary Care ([facility]) ) OUTPATIENT [id number] f/u sleep disturb ances CLUADIA MENDEZ 06/28 Released w/o Limitations [facility] KO[facility] Slade([employer] Primary [facility] ([place])) [facility] [employer](Hear ing Conservat ion [employer]) OUTPATIENT [id number] FRANCY Mitchell 07/19 [facility] w/o Limitations [facility] [employer](He aring Conserv ation [employer]) KOJO Glover([employer] Primary [facility] ([place]) ) OUTPATIENT [id number] shoulde r pain/ swollen gland CLAUDIA Goff 08/31 Released w/o Limitations [facility] KOJO Wood([employer] [facility] ([place] [facility])) [facility] OUTPATIENT [id number] 10/29 Released w/o Limitations [facility] OUTPATIENT [id number] 11/30 Released w/o Limitations [facility] OUTPATIENT [id number] 01/02 Released w/o Limitations [facility] Glover([employer] [facility] ([place]) ) OUTPATIENT [id number] change meds SUSIE FRANK 03/24 Released w/o Limitations KOJO Hightower([employer] Primary [employer] ([place])) KOJO Glover([employer] Primary [employer] ([place]) ) OUTPATIENT [id number] f/u and renewal of meds SUSIE FRANK 06/02 Released w/o Limitations [facility] KOJO Wood([employer] Primary [facility] ([place])) [facility] Med [facility]_AD) OUTPATIENT [id number] MEDICAT ION BREANNA BROWN 08/24 Released w/o Limitations [facility]( Walker Oper Med Team D_AD) [facility](Wi rrior Oper Med Team D_AD) OUTPATIENT [id number] POSSIBL E THEODORE GUZMÁN 10/16 Released with Work/Duty Limitations [facility]( Walker Oper Med Team D_AD) [facility](Wi rrior Oper Med Team D_AD) TELE CONSULT [id number] Lab results PEDRO NIEVES DL 10/19 [facility]( Walker Oper Med Team D_AD) [facility](ZZ Neurology Cl WR) OUTPATIENT [id number] memory lapses or loss ROCKY TERANN 11/12 Released w/o Limitations [facility]( ZZNeuro logy Cl WR) [facility](Wi rrior Oper Med Team D_AD) TELE CONSULT [id number] med refill PEDRO NIEVES DL 01/09 [facility]( Walker Oper Med Team D_AD) [facility](Wi rrior Oper Med Team D_AD) OUTPATIENT [id number] severe cough POLY ROJO 01/10 Released w/o Limitations [facility]( Walker Oper Med Team D_AD) [facility] OUTPATIENT [id number] 04/19 Released w/o Limitations [facility] OUTPATIENT [id number] 06/21 Released w/o Limitations [facility](Op erational Medicine MG) OUTPATIENT [id number] postdep loyment POLY ROJO 07/26 Released w/o Limitations [facility]( Operati onal Medicin e MG) [facility](Wi rrior Oper Med Team D_AD) OUTPATIENT [id number] f/u Occupat ional Therapy RUBIO MCCORMACK 08/13 Released w/o Limitations [facility]( Walker Oper Med Team D_AD) [facility]) DENTAL [id number] t-2 exam, insert HNG BATTLESIAT JOVONSAYDA O 11/27 Released w/o Limitations [facility]) DENTAL [id number] pro only MIGEL MILLER 11/28 Released w/o Limitations [facility]) [facility](Jensen villa MG) TELE CONSULT [id number] CC - AD w/ lower back pain. CB# . ISAIAH WU 12/19 [facility]( Dwight s MG) [facility](Pr imary Care NO) OUTPATIENT [id number] refill meds JUAN CASTILLO 02/20 Released w/o Limitations [facility]( Primary Care NO) [facility](Pr imary Care NO) OUTPATIENT [id number] PER PT SORE THROAT MARY LOU TROTTER 03/03 Released w/o Limitations [facility]( Primary Care NO) [facility](Pr imary Care NO) OUTPATIENT [id number] Seasona l Flumist Lot# [id number] RADHA GALAVIZ 03/03 Released w/o Limitations [facility]( Primary Care NO) [facility](Pr imary Care NO) TELE CONSULT [id number] mental health appoint ment JUAN CASTILLO 12/08 [facility]( Primary Care NO) [facility](Pr imary Care NO) OUTPATIENT [id number] med f/u JUAN CASTILLO 02/16 Released w/o Limitations [facility]( Primary Care NO) [facility](Pr imary Care NO) OUTPATIENT [id number] pain in left wrist JUAN CASTILLO 04/28 Released w/o Limitations [facility]( Primary Care NO) [facility](Pr imary Care NO) OUTPATIENT [id number] f/u for tendoni BREANNA Sims 06/29 Released w/o Limitations [facility]( Primary Care NO) [facility](Pr imary Care NO) OUTPATIENT [id number] deployi ng, needs med renewal BREANNA CORDON 09/17 Released w/o Limitations [facility]( Primary Care NO) [facility](Op erational Medicine MG) OUTPATIENT [id number] pha/dep loying TOLU GRACE 09/29 Released w/o Limitations [facility]( Operati onal Medicin e MG) [facility](Op erational Medicine MG) OUTPATIENT [id number] TOLU Ulloa 09/29 Released w/o Limitations [facility]( Operati onal Medicin e MG) [facility](Fl ight Med MG) OUTPATIENT [id number] Hearing Test KRANTHI ALANIZ 10/19 Released w/o Limitations [facility]( Flight Med MG) [facility](Op erational Medicine MG) OUTPATIENT [id number] Pre-Dep loyment LEONEL Carmichael 11/10 Released w/o Limitations [facility]( Operati onal Medicin e MG) [facility] OUTPATIENT [id number] 11/20 Released w/o Limitations [facility] OUTPATIENT [id number] 12/22 [facility] OUTPATIENT [id number] 12/31 [facility] OUTPATIENT [id number] 01/02 Released w/o Limitations Theater Facilit y [facility](ZZZLS L TBI Screening Neurology ) OUTPATIENT [id number] OND/OEF Concuss ion Screen RAGHU CORDOBA 01/04 Released w/o Limitations [facility](ZZZ LSL TBI Screeni ng Neurolo gy) [facility](LSL Urology) OUTPATIENT [id number] difficu lty uraideti DONALD Martinez 01/04 Released w/o Limitations [facility](LSL Urology ) [facility](LSL Enduring [facility]) OUTPATIENT [id number] DIRECTOR SEARCH MORRIS NAVARRO 01/04 Released w/o Limitations [facility](LSL Endurin g [facility]) [facility](LSL Urology) OUTPATIENT [id number] f/u DONALD GARCÍA 01/05 Released w/o Limitations [facility](LSL Urology ) [facility](LSL [facility]) OUTPATIENT [id number] F/U-TCC MORRIS NAVARRO 01/05 Released w/o Limitations [facility](LSL Endurin g [facility]) [facility](Op erational Medicine MG) OUTPATIENT [id number] post deploym ent TOLU GRACE 01/12 Released w/o Limitations [facility]( Operati onal Medicin e MG) [facility](Ca se Managemen t Cl MG) TELE CONSULT [id number] New pt / air-SKYLA Loomis ND 01/14 [facility]( Case Managem ent Cl MG) [facility](Op erational Medicine MG) OUTPATIENT [id number] Post-De plLEONEL Rebollar 01/14 Released w/o Limitations [facility]( Operati onal Medicin e MG) [facility](Ca se Managemen t Cl MG) TELE CONSULT [id number] Update assessm ent BUFFYELADIOHUANGSKYLA MIGUEL ND 02/16 [facility]( Case Managem ent Cl MG) [facility](Fa chintan Med Cl Team M_Non-AD) OUTPATIENT [id number] MENTAL CONFUSI ON MELISSA VASQUEZ S 02/16 Released w/o Limitations [facility]( Family Med Cl Team M_Non-A D) [facility](Op tometry Clinic MG) OUTPATIENT [id number] eye exam DONALD YOUSIF 02/24 Released w/o Limitations [facility]( Optomet ry Clinic MG) [facility](Ur ology Cl Be) OUTPATIENT [id number] [facility]: [facility] marcelina mayer pre-dep PASCUAL Randall 02/24 Released w/o Limitations [facility]( Urology Cl Be) [facility](Ur ology Cl Be) TELE CONSULT [id number] LYNETTE Egan pt request eval for PRINCE SIERRA 03/11 [facility]( Urology Cl Be) [facility](Ur ology Cl Be) TELE CONSULT [id number] PRINCE Billingsley 03/16 [facility]( Urology Cl Be) [facility](Ur ology Cl Be) TELE CONSULT [id number] testost erPRINCE Jamil 03/18 [facility]( Urology Cl Be) [facility](Ur ology Cl Be) OUTPATIENT [id number] f/up lab ASHWIN CARBAJAL 04/15 Released w/o Limitations [facility]) [facility](Wa rrior Oper Med Team D_AD) TELE CONSULT [id number] Fit for duty letter needs signatu re. CB#[phone] . DONALD TROTTER 05/04 [facility]( Walker Oper Med Team D_AD) [facility](Fa chintan Med Cl Team M_Non-AD) OUTPATIENT [id number] fit for duty letter NAMASAKA, KHAYANGA S 05/12 Released w/o Limitations [facility]( Family Med Cl Team M_Non-A D) [facility](Per Rel Prog Clinic) OUTPATIENT [id number] Notes Entered by: CANDIDO POLANCO 09 Sep 2011 0803 ------- ------- ------- ------- -- [facility]IMAL POLANCO 09/08 Released w/o Limitations [facility](P er Rel Prog Clinic) [facility](Per [facility]) OUTPATIENT [id number] NEW PATIENT /WELBUT RIN REFMAZIN KATHLEEN 10/25 Released w/o Limitations [facility](P er Rel Prog Clinic) [facility]) OUTPATIENT [id number] EMERALD WEISS 10/27 Released w/o Limitations [facility]) [facility](Per [facility]) TELE CONSULT [id number] Notes Entered by: Reji HASSAN 01 Nov 2011 1312 ------- ------- ------- ------- -- 72HR/LILIBETH LOCKE 10/31 [facility](P er [facility]) [facility](Per [facility]) OUTPATIENT [id number] continu ed symptom s from 25 October MAZIN MULLEN 11/01 Released w/o Limitations [facility](P er [facility]) [facility]) OUTPATIENT [id number] Notes Entered by: KSENIA LOPEZ 22 Nov 2011 1211 ------- ------- ------- ------- -- KSENIA GIBSON 11/21 Released w/o Limitations [facility]) [facility]) OUTPATIENT [id number] Notes Entered by: KSENIA LOPEZ 22 Nov 2011 1219 ------- ------- ------- ------- -- KSENIA GIBSON 11/21 Released w/o Limitations [facility]) [facility](Per [facility]g [facility]) TELE CONSULT [id number] Notes Entered by: RIMA LUNDBERG 02 Dec 2011 1108 ------- ------- ------- ------- -- 72HR REFILL LILIBETH GOLDEN E 12/01 [facility](P [facility]) [facility]) OUTPATIENT [id number] SEXUAL ISSUES LILIBETH GOLDEN 12/29 Released w/o Limitations [facility](P er [facility]g [facility]) [facility]) TELE CONSULT [id number] Notes Entered by: SHASHA SANTOYO 06 Jan 2012 0949 ------- ------- ------- ------- -- Medicat ion LILIBETH Herrera E 01/05 [facility](P [facility]) [facility]) TELE CONSULT [id number] Notes Entered by: SALCEDO 27 Jan 2012 1507 ------- ------- ------- ------- -- 24HR ACUTE OLIVIA CHINCHILLA 01/26 [facility](P [facility]) [facility](Min ot [facility]) OUTPATIENT [id number] WRIST TENDONI SUMA NEUMANN 04/21 Released w/o Limitations [facility](M inot [facility] ) [facility](Min ot [facility]) TELE CONSULT [id number] Notes Entered by: JULI CARTER AE 24 Apr 2012 1441 ------- ------- ------- ------- -- Results of SUMA Mandujano 04/24 [facility](M inot [facility] ) [facility](Min ot [facility]) TELE CONSULT [id number] Notes Entered by: DEENA BRIDGES 04 May 2012 1254 ------- ------- ------- ------- -- 72 HR SUSY HUNTLISBETReji Mayer 05/04 [facility](M inot [facility] ) [facility](Min ot [facility]) TELE CONSULT [id number] Notes Entered by: MICHA COLVIN 11 Aug 2012 0809 ------- ------- ------- ------- -- NETWORK RESULTS OSBALDO Bernard NOTE 05/24 SUMA MCCARTNEY 08/11 [facility](M [facility]ot [facility] ) [facility](Min ot [facility]) TELE CONSULT [id number] Notes Entered by: MICHA COLVIN 11 Aug 2012 0812 ------- ------- ------- ------- -- NETWORK RESULTS OSBALDO Bernard NOTE 05/24 MCKAYLA NGUYEN 08/11 [facility](M [facility]ot [facility] ) [employer](Min ot [facility]) OUTPATIENT [id number] DISCUSS POSS RHINOPL MCKAYLA KIMBALL 08/25 Released w/o Limitations [facility](M [facility]ot [facility] ) [facility](Per [facility] Prog Clinic) OUTPATIENT [id number] Notes Entered by: FUENTES WOOD 30 Oct 2012 1419 ------- ------- ------- ------- -- MIRIAM Gonzalez 10/30 Released w/o Limitations [facility](P er Rel Prog Clinic) [facility](Per [facility]) OUTPATIENT [id number] Notes Entered by: ALDO REIS 23 Nov 2012 1045 ------- ------- ------- ------- -- dta MORRIS BERMUDEZ Anaya 11/23 Released w/o Limitations [facility](P [facility]) [facility]) OUTPATIENT [id number] RONNIE LUAN EPSTEIN Breanna 12/12 Released w/o Limitations [facility]) [facility](Per [facility]) OUTPATIENT [id number] Notes Entered by: ALDO REIS 12 Dec 2012 0953 ------- ------- ------- ------- -- clarisa MARIA G STANLEY Sharyn 12/12 Released w/o Limitations [facility](P er [facility]) [facility]) OUTPATIENT [id number] Notes Entered by: KSENIA LOPEZ 27 Dec 2012 0810 ------- ------- ------- ------- -- KSENIA GIBSON 12/27 Released w/o Limitations [facility]) [facility](Per [facility]) TELE CONSULT [id number] Notes Entered by: BLESSING PAYAN 24 Apr 2013 1334 ------- ------- ------- ------- -- 24HR ERIN REDDING 04/24 [facility](P [facility]) [facility]) OUTPATIENT [id number] Notes Entered by: KSENIA LOPEZ 14 May 2013 1336 ------- ------- ------- ------- -- KSENIA GIBSON 05/14 Released w/o Limitations [facility]) [facility](Opt ometry) OUTPATIENT [id number] GEE BURNS 05/30 Released w/o Limitations [facility](O ptometr y) [facility] OUTPATIENT [id number] 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 10/10 Released w/o Limitations [facility] OUTPATIENT [id number] 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 11/22 Released w/o Limitations Theater Facilit y [employer]([facility] Medicine) OUTPATIENT [id number] Notes Entered by: MITA MACIEL 04 Dec 2013 0828 ------- ------- ------- ------- -- Occupat ional Health Exam/Au RUBIO Del Angel 12/04 Released w/o Limitations [facility](F light Medicin e) [facility]) OUTPATIENT [id number] Notes Entered by: KSENIA LOPEZ 05 Dec 2013 0911 ------- ------- ------- ------- -- DHA KSENIA LOPEZ 12/05 Released w/o Limitations [facility]) [facility](Per [facility]) OUTPATIENT [id number] Notes Entered by: LELE DE LA GARZA 09 Jan 2014 1245 ------- ------- ------- ------- -- Return from [facility] [place] 01/09 Released w/o Limitations [facility](P er [facility] Prog Clinic) [facility]) OUTPATIENT [id number] PRP LEONEL MURPHY 01/24 Released w/o Limitations [facility]) [facility](Per [facility]) OUTPATIENT [id number] FATIGUE KEITH MCINTYRE 02/06 Released w/o Limitations [facility](P er Rel Prog Clinic) [facility](Per [facility]) OUTPATIENT [id number] f/u KEITH MCINTYRE 02/18 Released w/o Limitations [facility](P [facility]) [facility]) OUTPATIENT [id number] Notes Entered by: KSENIA LOPEZ 18 Mar 2014 1225 ------- ------- ------- ------- -- KSENIA GIBSON 03/18 Released w/o Limitations [facility]) [facility](Per [facility]) TELE CONSULT [id number] Notes Entered by: CARMELITA TORO 18 Apr 2014 0821 ------- ------- ------- ------- -- 24 HR ACUTE KEITH MCINTYRE 04/18 [facility](P [facility]) [employer] [employer](Per Rel Prog Clinic) OUTPATIENT [id number] Notes Entered by: DAVIDE GAONA 24 Apr 2014 1133 ------- ------- ------- ------- -- PER CPT KEITH JARRELL 04/24 Released w/o Limitations [facility](P [facility]) [facility]) OUTPATIENT [id number] Notes Entered by: FUENTES WOOD 14 Jun 2014 0934 ------- ------- ------- ------- -- KEITH BECKMAN 06/14 Released w/o Limitations [facility](P [facility]) [facility](Opt ometry) OUTPATIENT [id number] EYE EXAM RICH ELENA 08/08 Released w/o Limitations [facility](O ptometr y) [facility](Per [facility] Prog Clinic) TELE CONSULT [id number] Notes Entered by: ERIN CARPENTER 13 Sep 2014 0916 ------- ------- ------- ------- -- Missed ERIN CARPENTER 09/13 [facility](P er [facility] Pro[facility]) [facility]) OUTPATIENT [id number] Notes Entered by: DAVIDE GAONA 08 Oct 2014 1401 ------- ------- ------- ------- -- PER. . KEITH JARRELL 10/08 Released w/o Limitations [facility](P er [facility] Prog Clinic) [facility] [place] OUTPATIENT [id number] Pre-Op, JUANI Chang 10/15 Released w/o Limitations [facility] [place] [place] OUTPATIENT [id number] CRS Briefin g/wjw HUANG WARREN 10/16 Released w/o Limitations [facility] [place] [place] OUTPATIENT [id number] CRS Surgery /wHUANG Hastings 10/17 Released w/o Limitations [facility] [place] [place] OUTPATIENT [id number] 4 day f/u, JUANI Chang 10/21 Released w/o Limitations [facility] [place](Opt ometry) OUTPATIENT [id number] CRS 1 week GEE HARRIS 10/25 Released w/o Limitations [employer](O ptometr y) [facility] [employer](Opt ometry) OUTPATIENT [id number] 1 mo crs f/u GEE HARRIS 11/15 Released w/o Limitations [employer] [facility] [employer](O ptometr y) [facility](Per Rel Prog Clinic) OUTPATIENT [id number] Notes Entered by: AMARA GONZALEZ 20 Nov 2014 1103 ------- ------- ------- ------- -- leg pain KEITH MCINTYRE 11/20 Released w/o Limitations [facility](P er Rel Prog Clinic) [employer] [facility] [employer](Opt ometry) OUTPATIENT [id number] 2 mo crs f/u GEE HARRIS 01/02 Released w/o Limitations [employer](O ptometr y) [facility] [employer](Opt ometry) OUTPATIENT [id number] 3 mo crs f/u STEVENGEE 01/21 Released w/o Limitations [facility](O ptometr y) [facility](Per Rel Prog Clinic) OUTPATIENT [id number] nasal congest ion KEITH MCINTYRE 02/26 Released w/o Limitations [facility](P [facility]) [facility]) OUTPATIENT [id number] Notes Entered by: JUAN FRANCISCO NAZARIO 05 Mar 2015 1215 ------- ------- ------- ------- -- WALK IN [facility] PHA EMERALD NAZARIO 03/05 Released w/o Limitations [facility]) [facility]) OUTPATIENT [id number] Notes Entered by: KSENIA LOPEZ 05 Mar 2015 1302 ------- ------- ------- ------- -- KSENIA GIBSON 03/05 Released w/o Limitations [facility]) [facility](Per [facility]) OUTPATIENT [id number] req fit and clear KEITH MCINTYRE 03/12 Released w/o Limitations [facility](P [facility]) [facility]) OUTPATIENT [id number] Notes Entered by: JAUN QUINTANA 17 Apr 2015 1257 ------- ------- ------- ------- -- Cold SX's KEITH MCINTYRE 04/17 Released w/o Limitations [facility](P [facility]) [facility](Phy sical Therapy) OUTPATIENT [id number] leg pain OLIVIA STAPLES 04/18 Released w/o Limitations [facility](P hysical Therapy ) [facility](Opt ometry) OUTPATIENT [id number] 6 month CRS f/u RICH ELENA 04/21 Released w/o Limitations [employer](O ptometr y) [employer](Phy sical Therapy) OUTPATIENT [id number] OLIVIA STAPLES 05/19 Released w/o Limitations [facility](P hysical Therapy ) [facility](Per Rel Prog Clinic) OUTPATIENT [id number] per KEITH Jarrell 05/21 Released w/o Limitations [facility](P er Rel Prog Clinic) [facility](Per [facility] Prog Clinic) OUTPATIENT [id number] Notes Entered by: AMARA GONZALEZ 27 Jun 2015 1248 ------- ------- ------- ------- -- rash KEITH MCINTYRE 06/26 Released w/o Limitations [facility](P er [facility] Prog [facility]) [facility]) OUTPATIENT [id number] Notes Entered by: YAMINI BOWENS 11 Jul 2015 1402 ------- ------- ------- ------- -- OCCUPAT IONAL HEALTH/ AUDIOGR AM KALEY GARCIA 07/10 Released w/o Limitations [facility]) [facility](Per [facility] Clinic) OUTPATIENT [id number] RTDA LILIBETH TOMPKINS NMI 09/28 Released w/o Limitations [facility](P er [facility] Prog Clinic) [facility](Opt ometry) OUTPATIENT [id number] 12 mo crs f/u RICH ELENA 10/26 Released w/o Limitations [facility](O ptometr y) [facility](Per Rel Prog Clinic) OUTPATIENT [id number] Notes Entered by: JOHAN MACKEY 22 Dec 2015 1051 ------- ------- ------- ------- -- BACK PAIN LILIBETH TOMPKINS NMI 12/21 Released w/o Limitations [facility](P er Rel Prog Clinic) [facility](Per [facility] Pro[facility] Clinic) TELE CONSULT [id number] Notes Entered by: BARRY COMBSSANA TOMMY Hicks 06 Jan 2016 1444 ------- ------- ------- ------- -- Network Results -PODIAT RY-8Jul y16-See artifac ts & images LILIBETH TOMPKINS 01/05 [facility](P [facility] Pro[facility]) [facility]) TELE CONSULT [id number] Notes Entered by: XOCHILT WILLIAMSON 04 Feb 2016 1425 ------- ------- ------- ------- -- Self inspect LATANYA Reynolds 02/03 [facility] TELE CONSULT [id number] Notes Entered by: Kristen TOMPKINS HER 05 Feb 2016 0934 ------- ------- ------- ------- -- TB concern s LILIBETH TOMPKINS 02/04 [facility] TELE CONSULT [id number] Notes Entered by: Kristen TOMPKINS HER 24 Feb 2016 1236 ------- ------- ------- ------- -- Discuss ion with member LILIBETH TOMPKINS 02/23 [facility] OUTPATIENT [id number] Notes Entered by: YANIRA HULL 18 Mar 2016 1052 ------- ------- ------- ------- -- WALK IN ANKLE / JOINT PAIN LILIBETH TOMPKINS 03/18 Released with Work/Duty Limitations [facility] OUTPATIENT [id number] Notes Entered by: STEVEN DE LA CRUZ 04 May 2016 1129 ------- ------- ------- ------- -- TRISERV ICE RONNIE ARRINGTON CHRISFLORESITA URBINA 05/04 Released w/o Limitations [facility] OUTPATIENT [id number] Priorit y ELMO [place] per [place] ARRINGTON, CHRISFLORESITA URBINA 05/05 Released w/o Limitations [facility] TELE CONSULT [id number] Notes Entered by: MONICA ALAMO 03 Jun 2016 1412 ------- ------- ------- ------- -- Network results - sleep study -look in artifac ts and images LILIBETH TOMPKINS NMI 06/03 [facility] OUTPATIENT [id number] Notes Entered by: YANIRA HULL 09 Jun 2016 0707 ------- ------- ------- ------- -- walk in per LILIBETH Olivas 06/09 Released w/o Limitations [facility] TELE CONSULT [id number] Notes Entered by: Kristen TOMPKINS [facility] 25 Jun 2016 1047 ------- ------- ------- ------- -- LILIBETH Emery 06/25 [facility](Bas [facility] Operation [facility] Medicine Clin) TELE CONSULT [id number] Notes Entered by: EULALIA DUNHAM 17 Aug 2016 0944 ------- ------- ------- ------- -- [facility]avia [place] EULALIA DUNHAM 08/17 Released w/o Limitations [facility](B ase Operati onal Medicin e Clin) [facility] OUTPATIENT [id number] PRP-sle ep concern s/pain DONALD PATEL 08/27 Released w/o Limitations [facility] TELE CONSULT [id number] Notes Entered by: MARIBEL PATEL 30 Aug 2016 0736 ------- ------- ------- ------- -- Xray results DONALD PATEL 08/30 [facility]) OUTPATIENT [id number] Urinary Pain/Er ectile Disfunc tion DONALD PATEL 09/10 Released w/o Limitations [facility] TELE CONSULT [id number] Notes Entered by: MARIBEL PATEL 17 Sep 2016 1052 ------- ------- ------- ------- -- Lab results DONALD PATEL 09/17 [facility] TELE CONSULT [id number] Notes Entered by: MARIBEL PATEL 21 Sep 2016 1207 ------- ------- ------- ------- -- Medicat ion renewal DONALD PATEL 09/21 [facility] OUTPATIENT [id number] Notes Entered by: MAXIMO HUGHES 22 Oct 2016 0951 ------- ------- ------- ------- -- Walk In for insect bite DONALD PATEL 10/22 Released with Work/Duty Limitations [facility] TELE CONSULT [id number] Notes Entered by: SANA ANGELES 10 Nov 2016 1049 ------- ------- ------- ------- -- Network Results --MRI LT ANKLE-- 11/05/16 --See artifac ts & images. DONALD PATEL 11/10 [facility] TELE CONSULT [id number] Notes Entered by: MAO HILLMAN 16 Nov 2016 1527 ------- ------- ------- ------- -- NETWORK RESULTS --PODIA TRY -- -- SEE ARTIFAC TS & IMAGES DONALD PATEL 11/16 [facility] OUTPATIENT [id number] CONSULT ATDONALD PECK 11/19 Released with Work/Duty Limitations [facility]) [facility](Inc orrect [facility](Inac tive)) OUTPATIENT [id number] Notes Entered by: GARRET FREEMAN 19 Nov 2016 0943 ------- ------- ------- ------- -- AUDIOGR AM ANEUDY FREEMAN 11/19 Released w/o Limitations [facility](I ncorrec t [facility](In active) ) [facility] TELE CONSULT [id number] Notes Entered by: ADRIENNE MENJIVAR 26 Nov 2016 0939 ------- ------- ------- ------- -- Network Results -XR Left Hand 4aug17 See Artifac ts and Images DONALD PATEL 11/26 [facility]) [facility](Inc orrect [facility](Inac tive)) OUTPATIENT [id number] Notes Entered by: CRISTAL CAMARGO 06 Dec 2016 1030 ------- ------- ------- ------- -- AUDIOGR AM FOLLOW- UP LEATHA SALDAÑA 12/06 Released w/o Limitations [facility](Emily DIXON(In active) ) [facility] TELE CONSULT [id number] Notes Entered by: MARIBEL PATEL 15 Dec 2016 0952 ------- ------- ------- ------- -- DONALD NOVAK 12/15 [facility] OUTPATIENT [id number] WALK IN PER CAPT DONALD GARVIN 12/28 Released w/o Limitations [facility]) [facility] OUTPATIENT [id number] PRP:F/U DONALD PATEL 02/04 Released w/o Limitations [facility]) [facility] OUTPATIENT [id number] Wart Removal -Left Foot DONALD PATEL 02/25 Released w/o Limitations [facility]) [facility](Phy sical Therapy) OUTPATIENT [id number] L Ankle ROM SANAM LOUIS 03/17 Released w/o Limitations [facility](P hysical Therapy ) [facility]) OUTPATIENT [id number] Need more migrain e medicin e/wart removal DONALD PATEL 05/02 Released with Work/Duty Limitations [facility]) [facility] OUTPATIENT [id number] Medicat ion Follow Up DONALD PATEL 05/26 Released with Work/Duty Limitations [facility]) [facility] OUTPATIENT [id number] Medicat ion Follow Up DONALD PATEL 08/31 Released w/o Limitations [facility] Team B-Non AD) OUTPATIENT [id number] MEDICAT ION REFRADHA LATIF 01/06 Released w/o Limitations [facility] [employer](F MC Team B-Non AD) [facility](Fli t Medicine) OUTPATIENT [id number] ESTEFANY Dunlap 03/16 Released w/o Limitations [facility](F light Medicin e) [facility] OFFICE O/P NEW LOW 30-44 MIN [id number] Diagnos is: ICD-10- CM G50.1 Atypica l facial pain
LYNETTE WALTERS 08/16 [facility] [place] [facility] Outpatient Encounter [id number] 08/16 [facility] [place] [facility] Outpatient Encounter [id number] 10/22 [facility] Outpatient Encounter [id number] 12/27 [facility] OFFICE O/P EST HI 40-54 MIN [id number] Diagnos is: ICD-10- CM F33.9 Major depress mi disorde r, recurre nt, unspeci fied
JENY CESAR 12/27 [facility] [place] [facility] Outpatient Encounter [id number] RAQUEL MORRISON 04/20 [facility] [place] [facility] OFFICE O/P EST MOD 30 MIN [id number] Diagnos is: ICD-10- CM F43.12 Post-tr aumatic stress disorde r, chronic
FREDY CHESTER [facility] [place] [facility] Outpatient Encounter [id number] 07/18 [facility] [place] [facility] OFFICE O/P EST MOD 30 MIN [id number] Diagnos is: ICD-10- CM F43.12 Post-tr aumatic stress disorde r, chronic
FREDY CHESTER CQUES T 07[facility] [place] [facility] Outpatient Encounter [id number] 08/21 [facility] [place] [facility] OFF[facility] O/P EST MOD 30 MIN [id number] Diagnos is: ICD-10- CM F43.12 Post-tr aumatic stress disorde r, chronic
FREDY CHESTER CQUES T 09[facility]18 [facility] [place] [facility] Outpatient Encounter [id number] 11/21 [facility] Procedures Combined list of: 1) Procedures from Department of Veterans Affairs facilities going back up to thelast 18 months, not all [place] non-surgical procedures are included; 2) All procedures from the Department of Defense facilities. Procedure Procedure Type Code Date Perfomer Comments [facility] e SCREENING TEST OF VISUAL ACUITY, QUANTITATIVE, BILATERAL [facility] AUDIOMETRIC TESTING OF GROUPS [facility] ANTHRAX VACCINE, FOR SUBCUTANEOUS OR INTRAMUSCULAR USE [facility] POSTOPERATIVE FOLLOW-UP VISIT, NORMALLY INCLUDED IN THE SURGICAL PACKAGE, INDICATE THAT EVALUATION & MANAGEMENT SERVICE WAS PERFORMED DURING A POSTOPERATIVE PERIOD REASON RELATED ORIGINAL PROCEDURE [facility] PHOTOREFRACTIVE KERATECTOMY (PRK) [facility] PHYS/OTH QUALIFIED HEALTH MANAGER TRANSIT QUALIFIED,EDUCATION,TR AIN,LICENSURE/REGULATI ON (WHEN APPLICABLE) EDUC SER RENDERED TO PATS IN A GRP SETTING (EG,,OBESITY,O R DIABETIC INSTRUCT) [facility] SCANNING COMPUTERIZED OPHTHALMIC DIAGNOSTIC IMAGING, POSTERIOR SEGMENT, WITH INTERPRETATION AND REPORT, UNILATERAL OR BILATERAL; OPTIC NERVE [facility] BRIEF EMOTIONAL/BEHAVIORAL ASSESSMENT (EG, DEPRESSION INVENTORY, ATTENTION-DEFICIT/HYPE RACTIVITY DISORDER [ADHD] SCALE), WITH SCORING AND DOCUMENTATION, PER STANDARDIZED INSTRUMENT [facility] BRIEF EMOTIONAL/BEHAVIORAL ASSESSMENT (EG, DEPRESSION INVENTORY, ATTENTION-DEFICIT/HYPE RACTIVITY DISORDER [ADHD] SCALE), WITH SCORING AND DOCUMENTATION, PER STANDARDIZED INSTRUMENT [facility] NEUROPSYCHOLOGICAL TESTING (EG, [place] CARD SORTING TEST), ADMINISTERED BY A COMPUTER, WITH QUALIFIED HEALTH MANAGER TRANSIT INTERPRETATION AND REPORT [facility] BRIEF EMOTIONAL/BEHAVIORAL ASSESSMENT (EG, DEPRESSION INVENTORY, ATTENTION-DEFICIT/HYPE RACTIVITY DISORDER [ADHD] SCALE), WITH SCORING AND DOCUMENTATION, PER STANDARDIZED INSTRUMENT [facility] PHYSICAL THERAPY EVALUATION:LOW COMPLEXITY,REQ:HIST W NO PERS FACT &/COMORB THAT IMPACT PLAN OF CARE;CLIN DECIS MAKING OF LOW COMPLEXITY,TYPICALLY,2 0 MIN ARE SPENT [id number] W THE PATIENT &/FAMILY [facility] PARING OR CUTTING OF BENIGN HYPERKERATOTIC LESION (EG, CORN OR CALLUS); SINGLE LESION [facility] PREPARATION OF REPORT OF PATIENT'S PSYCHIATRIC STATUS, HISTORY, TREATMENT, OR PROGRESS (OTHER THAN FOR LEGAL OR CONSULTATIVE PURPOSES) FOR OTHER INDIVIDUALS, AGENCIES, OR INSURANCE CARRIERS [facility] BRIEF EMOTIONAL/BEHAVIORAL ASSESSMENT (EG, DEPRESSION INVENTORY, ATTENTION-DEFICIT/HYPE RACTIVITY DISORDER [ADHD] SCALE), WITH SCORING AND DOCUMENTATION, PER STANDARDIZED INSTRUMENT [facility] PSYCHOTHERAPY, 45 MINUTES WITH PATIENT WHEN PERFORMED WITH AN EVALUATION AND MANAGEMENT SERVICE (LIST SEPARATELY IN ADDITION TO THE CODE FOR PRIMARY PROCEDURE) [facility] DETERMINATION OF REFRACTIVE STATE [facility] BRIEF EMOTIONAL/BEHAVIORAL ASSESSMENT (EG, DEPRESSION INVENTORY, ATTENTION-DEFICIT/HYPE RACTIVITY DISORDER [ADHD] SCALE), WITH SCORING AND DOCUMENTATION, PER STANDARDIZED INSTRUMENT [facility] BRIEF EMOTIONAL/BEHAVIORAL ASSESSMENT (EG, DEPRESSION INVENTORY, ATTENTION-DEFICIT/HYPE RACTIVITY DISORDER [ADHD] SCALE), WITH SCORING AND DOCUMENTATION, PER STANDARDIZED INSTRUMENT [facility] PSYCHOTHERAPY, 45 MINUTES WITH PATIENT WHEN PERFORMED WITH AN EVALUATION AND MANAGEMENT SERVICE (LIST SEPARATELY IN ADDITION TO THE CODE FOR PRIMARY PROCEDURE) [facility] BRIEF EMOTIONAL/BEHAVIORAL ASSESSMENT (EG, DEPRESSION INVENTORY, ATTENTION-DEFICIT/HYPE RACTIVITY DISORDER [ADHD] SCALE), WITH SCORING AND DOCUMENTATION, PER STANDARDIZED INSTRUMENT [facility] PSYCHOTHERAPY, 30 MINUTES WITH PATIENT WHEN PERFORMED WITH AN EVALUATION AND MANAGEMENT SERVICE (LIST SEPARATELY IN ADDITION TO THE CODE FOR PRIMARY PROCEDURE) [facility] THERAPEUTIC PROCEDURE, 1 OR MORE AREAS, EACH 15 MINUTES; THERAPEUTIC EXERCISES TO DEVELOP STRENGTH AND ENDURANCE, RANGE OF MOTION AND FLEXIBILITY [facility] PSYCHOTHERAPY, 60 MINUTES WITH PATIENT DoD PSYCHOTHERAPY, [...] MINUTES WITH PATIENT DoD PSYCHIATRIC DIAGNOSTIC EVALUATION [facility] TELE ASSESS & MGT SRV PROV QUAL NONPHYS HLTH CARE PRO TO EST PAT,PARENT,GUARD NOT ORIG REL ASSESS & MGT SRV PROV W/IN PREV 7 DAYS NOR LEAD ASSESS & MGT SRV/PX W/IN NXT 24H/SOON APT; 11-20 MIN MED DIS [facility] OPHTHALMOLOGICAL SERVICES: MEDICAL EXAMINATION AND EVALUATION, WITH INITIATION OR CONTINUATION OF DIAGNOSTIC AND TREATMENT PROGRAM; COMPREHENSIVE, ESTABLISHED PATIENT, 1 OR MORE VISITS [facility] PSYCHOTHERAPY, 60 MINUTES WITH PATIENT DoD PSYCHOTHERAPY, 30 MINUTES WITH PATIENT DoD PSYCHIATRIC DIAGNOSTIC EVALUATION [facility] FITTING OF SPECTACLES, EXCEPT FOR APHAKIA; MONOFOCAL [facility] PHARMACOLOGIC MANAGEMENT, INCLUDING PRESCRIPTION AND REVIEW OF MEDICATION, WHEN PERFORMED WITH PSYCHOTHERAPY SERVICES (LIST SEPARATELY IN ADDITION TO THE CODE FOR PRIMARY PROCEDURE) [facility] PSYCHOLOGICAL TSTING (INCL PSYCHODIAG ASSESSMNT, EMOTITY, INTELLECTUAL ABILITIES, PERSONALITY &PSYCHOPATHOLOGY, EG, MMPI), ADMINISTERED COMPUTER, W QUALIFIED HEALTH MANAGER TRANSIT INTERPRET &RPT [facility] PSYCHIATRIC EVALUATION OF HOSPITAL RECORDS, OTHER PSYCHIATRIC REPORTS, PSYCHOMETRIC AND/OR PROJECTIVE TESTS, AND OTHER ACCUMULATED DATA FOR MEDICALDIAGNOSTIC PURPOSES DoD PSYCHOTHERAPY, 60 MINUTES WITH PATIENT DoD PSYCHOTHERAPY, 60 MINUTES WITH PATIENT 013 DoD PSYCHOTHERAPY, 60 MINUTES WITH PATIENT DoD PHARMACOLOGIC MANAGEMENT, INCLUDING PRESCRIPTION AND REVIEW OF MEDICATION, WHEN PERFORMED WITH PSYCHOTHERAPY SERVICES (LIST SEPARATELY IN ADDITION TO THE CODE FOR PRIMARY PROCEDURE) [facility] PSYCHIATRIC DIAGNOSTIC INTERVIEW EXAMINATION [facility] INDIVIDUAL PSYCHOTHERAPY, INSIGHT ORIENTED, BEHAVIOR MODIFYING AND/OR SUPPORTIVE, IN AN OFFICE OR OUTPATIENT FACILITY, APPROXIMATELY 20 TO 30 MINUTES [id number] W THE PATIENT; W MED EVAL & MGT SER [facility] PHARMACOLOGIC MANAGEMENT, INCLUDING PRESCRIPTION, USE, AND REVIEW OF MEDICATION WITH NO MORE THAN MINIMAL MEDICAL PSYCHOTHERAPY [facility] PSYCHOLOGICAL TSTING (INCL PSYCHODIAG ASSESSMNT, EMOTITY, INTELLECTUAL ABILITIES, PERSONALITY &PSYCHOPATHOLOGY, EG, MMPI), ADMINISTERED COMPUTER, W QUALIFIED HEALTH MANAGER TRANSIT INTERPRET &RPT [facility] PSYCHIATRIC DIAGNOSTIC INTERVIEW EXAMINATION [facility] INDIVIDUAL PSYCHOTHERAPY, INSIGHT ORIENTED, BEHAVIOR MODIFYING AND/OR SUPPORTIVE, IN AN OFFICE OR OUTPATIENT FACILITY, APPROXIMATELY 45 TO 50 MINUTES [id number] WITH THE PATIENT [facility] INDIVIDUAL PSYCHOTHERAPY, INSIGHT ORIENTED, BEHAVIOR MODIFYING AND/OR SUPPORTIVE, IN AN OFFICE OR OUTPATIENT FACILITY, APPROXIMATELY 45 TO 50 MINUTES [id number] WITH THE PATIENT [facility] INDIVIDUAL PSYCHOTHERAPY, INSIGHT ORIENTED, BEHAVIOR MODIFYING AND/OR SUPPORTIVE, IN AN OFFICE OR OUTPATIENT FACILITY, APPROXIMATELY 20 TO 30 MINUTES [id number] WITH THE PATIENT [facility] PATIENT EDUCATION, NOT OTHERWISE CLASSIFIED, NON-PHYSICIAN PROVIDER, INDIVIDUAL, PER SESSION [facility] PURE TONE AUDIOMETRY (THRESHOLD); AIR ONLY [facility] DETERMINATION OF REFRACTIVE STATE [facility] EXCISION, OTHER BENIGN LESION INCLUDING MARGINS, EXCEPT SKIN TAG (UNLESS LISTED ELSEWHERE), FACE, EARS, EYELIDS, NOSE, LIPS, MUCOUS MEMBRANE; EXCISED DIAMETER 0.6 TO 1.0 CM [facility] PSYCHIATRIC DIAGNOSTIC INTERVIEW EXAMINATION [facility] PSYCHIATRIC EVALUATION OF HOSPITAL RECORDS, OTHER PSYCHIATRIC REPORTS, PSYCHOMETRIC AND/OR PROJECTIVE TESTS, AND OTHER ACCUMULATED DATA FOR MEDICALDIAGNOSTIC PURPOSES [facility] MEASUREMENT OF POST-VOIDING RESIDUAL URINE AND/OR BLADDER CAPACITY BY ULTRASOUND, NON-IMAGING [facility] MANUAL THERAPY TECHNIQUES (EG, MOBILIZATION/ MANIPULATION, MANUAL LYMPHATIC DRAINAGE, MANUAL TRACTION), 1 OR MORE REGIONS, EACH 15 MINUTES [facility] DETERMINATION OF REFRACTIVE STATE [facility] PSYCHIATRIC DIAGNOSTIC INTERVIEW EXAMINATION [facility] FITTING OF SPECTACLES, EXCEPT FOR APHAKIA; MONOFOCAL [facility] COORDINATED CARE FEE, MAINTENANCE RATE [facility] CASE MANAGEMENT, EACH 15 MINUTES DoD NEUROPSYCHOLOGICAL TESTING (EG, [place] CARD SORTING TEST), ADMINISTERED BY A COMPUTER, WITH QUALIFIED HEALTH MANAGER TRANSIT INTERPRETATION AND REPORT [facility] INTRODUCTION OF NEEDLE OR INTRACATHETER, VEIN [facility] NEUROPSYCHOLOGICAL TESTING (EG, [place] CARD SORTING TEST), ADMINISTERED BY A COMPUTER, WITH QUALIFIED HEALTH MANAGER TRANSIT INTERPRETATION AND REPORT [facility] PSYCHIATRIC DIAGNOSTIC INTERVIEW EXAMINATION [facility] Case Management, each 15 minutes SKYLA BRUCE [facility] Diagnostic Cystoscopy Diagnostic Cystoscopy [id number] [id number] DONALD GARCÍA [facility] Measuremt Post-Voiding Resid Urine, Bladder Capacity Ultrasd Measuremt Post-Voiding Resid Urine, Bladder Capacity Ultrasd 99714 011 DONALD GARCÍA [facility] Psychometric Neuropsych Testing Battery Admin By Computer Psychometric Neuropsych Testing Battery Admin By Computer [id number] JENNY RAMOS [facility] Psychometric Neuropsych Testing Battery Admin By Computer Psychometric Neuropsych Testing Battery Admin By Computer 13388 010 KARI MCDERMOTT [facility] Psychiatric Diagnostic Evaluation Comprehensive Examination Psychiatric Diagnostic Evaluation Comprehensive Examination 83805 010 JENNY RAMOS [facility] Audiometry Group Testing Audiometry Group Testing 28668 007 FRANCY HEART [facility] Clinical Social Work Individual Outpatient Counseling 45 Minutes Clinical Social Work Individual Outpatient Counseling 45 Minutes [id number] BRENT KIRBY [facility] Clinical Social Work Individual Outpatient Counseling 45 Minutes Clinical Social Work Individual Outpatient Counseling 45 Minutes [id number] BRENT KIRBY [facility] Clinical Social Work Individual Outpatient Counseling 30 Minutes Clinical Social Work Individual Outpatient Counseling 30 Minutes [id number] MARY CARMEN [facility] Threshold Audiogram (Pure Tone) Threshold Audiogram (Pure Tone) 16958 [id number] JOHAN SILVA [facility] Determination Of Refractive State Determination Of Refractive State 35345 005 OMAR LEROY [facility] Ophthalmological New Patient Start Comprehensive Care Ophthalmological New Patient Start Comprehensive Care 67878 005 OMAR LEROY [facility] Excision Of Lesion Face Benign .6 to 1cm 005 CLAUDIA PHILLIPS [facility] Psychiatric Diagnostic Evaluation Comprehensive Examination Psychiatric Diagnostic Evaluation Comprehensive Examination 21867 005 DANIEL CHANG [facility] Psychiatric Diagnostic Evaluation Review of Records and Reports Psychiatric Diagnostic Evaluation Review of Records and Reports 47320 005 DANIEL CHANG [facility] Psychometric Emotional / Behavioral A e ment Psychometric Emotional / Behavioral Assessment 07643 018 JUWAN AZAR Psychotherapy Individual Approximately 60 Minutes Psychotherapy Individual Approximately 60 Minutes 66120 018 JUWAN AZAR Psychometric Emotional / Behavioral A e ment Psychometric Emotional / Behavioral Assessment 53836 018 ЕКАТЕРИНАGEE JUWAN More [facility] Psychiatric Diagnostic Evaluation Comprehensive Examination Psychiatric Diagnostic Evaluation Comprehensive Examination 00285 018 ЕКАТЕРИНАGEE JUWAN More [facility] Psychometric Emotional / Behavioral A e ment Psychometric Emotional / Behavioral Assessment 38551 018 ЕКАТЕРИНАJUWAN FLYNN [facility] Psychometric Neuropsych Testing Battery Admin By Computer Psychometric Neuropsych Testing Battery Admin By Computer 43213 ЕКАТЕРИНАGEE JUWAN More [facility] Psychotherapy Individual Approximately 60 Minutes Psychotherapy Individual Approximately 60 Minutes 00888 ЕКАТЕРИНАJUWAN FLYNN [facility] Physical Therapy Service Evaluation Low Complexity Physical Therapy Service Evaluation Low Complexity 07692 017 SANAM LOUIS [facility] Paring / Curettage Of Benign Hyperkeratotic Lesion, Single Paring / Curettage Of Benign Hyperkeratotic Lesion, Single 69909 017 DONALD PATEL [facility] Destruction Of Flat Warts By Cryosurgery Up To 14 Lesions Destruction Of Flat Warts By Cryosurgery Up To 14 Lesions 73147 017 DONALD PATEL [facility] Psychiatric Therapy Preparation of Psychiatric Status Report Psychiatric Therapy Preparation of Psychiatric Status Report 39590 017 JERRY RAMAN [facility] Psychometric Emotional / Behavioral A e ment Psychometric Emotional / Behavioral Assessment 17243 016 SUSIE WALKER [facility] Psychotherapy Indiv Approx 45 Min W/ Medical Evaluation & Management 016 SUSIE WALKER [facility] Psychotherapy Indiv Approx 45 Min W/ Medical Evaluation & Management 016 JESUS HAHN [facility] Psychometric Emotional / Behavioral A e ment Psychometric Emotional / Behavioral Assessment 91910 016 JESUS HAHN Determination Of Refractive State Determination Of Refractive State 25577 016 RICH ELENA Ophthalmological Prior Patient Start Comprehensive Care Ophthalmological Prior Patient Start Comprehensive Care 35447 016 RICH ELENA Psychometric Emotional / Behavioral A e ment Psychometric Emotional / Behavioral Assessment 51710 016 JERRY RAMAN Psychotherapy Individual Approximately 60 Minutes 016 JERRY RAMAN Psychometric Emotional / Behavioral A e ment Psychometric Emotional / Behavioral Assessment 39253 016 JERRY RAMAN Psychotherapy Individual Approximately 60 Minutes JERRY RAMAN Psychotherapy Indiv Approx 45 Min W/ Medical Evaluation & Management JESUS HAHN [facility] Psychometric Emotional / Behavioral A e ment Psychometric Emotional / Behavioral Assessment 74406 JEANETTEJESUS MIDDLETON Psychometric Emotional / Behavioral A e ment Psychometric Emotional / Behavioral Assessment 56680 JERRY RAMAN Psychotherapy Individual Approximately 60 Minutes JERRY RAMAN Psychotherapy Individual Approx 30 Min W/ Medical Evaluation & Management JESUS HAHN [facility] Center Physical Therapy: ___ Se ion Segments, 15 Minutes Each Physical Therapy: ___ Session Segments, 15 Minutes Each [id number] OLIVIA STAPLES [facility] Physical Therapy Service Re-Evaluation Physical Therapy Service Re-Evaluation [id number] OLIVIA STAPLES Psychotherapy Individual Approximately 60 Minutes JERRY RAMAN Psychotherapy Individual Approximately 45 Minutes JERRY RAMAN [facility] Postoperative Visit, Without Charge Postoperative Visit, Without Charge [id number] RICH ELENA [facility] Foot, arch support, removable, premolded, longitudinal, each OLIVIA STAPLES L420 M sz 13 [facility] Physical Therapy Education Orthotics Training OLIVIA STAPLES Physical Therapy: ___ Se ion Segments, 15 Minutes Each Physical Therapy: ___ Session Segments, 15 Minutes Each [id number] OLIVIA STAPLES [facility] Physical Therapy Service Evaluation Physical Therapy Service Evaluation [id number] OLIVIA STAPLES [facility] Psychotherapy Individual Approx 30 Min W/ Medical Evaluation & Management JESUS HAHN [facility] Non-Physician Phone Call To Pt/Provider Intermed (11-20 min) Non-Physician Phone Call To Pt/Provider Intermed (11-20 min) [id number] JERRY RAMAN Psychotherapy Individual Approximately 60 Minutes JERRY RAMAN Psychotherapy Individual Approximately 60 Minutes JERRY RAMAN Psychotherapy Individual Approximately 60 Minutes JERRY RAMAN Postoperative Visit, Without Charge Postoperative Visit, Without Charge [phone] GEE HARRIS Psychotherapy Individual Approximately 60 Minutes 015 JERRY RAMAN Psychotherapy Individual Approximately 60 Minutes 015 DANISHA JERRY Reji Mehta Psychotherapy Individual Approximately 60 Minutes 015 JERRY RAMAN Postoperative Visit, Without Charge Postoperative Visit, Without Charge [phone] GEE HARRIS Psychotherapy Individual Approximately 60 Minutes 015 JERRY RAMAN Psychotherapy With Medication Management Psychotherapy With Medication Management [id number] [id number] JESUS HAHN Tyson Psychotherapy Individual Approximately 60 Minutes 015 DANISHA JERRY Reji Mehta Psychotherapy Individual Approximately 60 Minutes 015 JERRY RAMAN Psychotherapy Individual Approximately 60 Minutes 015 JERRY RAMAN Postoperative Visit, Without Charge Postoperative Visit, Without Charge [phone] GEE HARRIS Postoperative Visit, Without Charge Postoperative Visit, Without Charge [phone] GEE HARRIS Postoperative Visit, Without Charge Postoperative Visit, Without Charge [phone] JUANI GAMBOA Photorefractive keratectomy (PRK) 015 SOLIS ORTIZ Physician Supervised Group Educational Services Physician Supervised Group Educational Services [id number] SOLIS ORTIZ Scanning Computerized Ophthalmic Diagnostic Imaging Optic Nerve Scanning Computerized Ophthalmic Diagnostic Imaging Optic Nerve 45553 015 JUANI GAMBOA Corneal Pachymetry Corneal Pachymetry 85988 10/10 015 JUANI GAMBOA Scanning Computerized Ophthalmic Diagnostic Imaging Anterior Segment, Unilateral Scanning Computerized Ophthalmic Diagnostic Imaging Anterior Segment, Unilateral 01514 015 JUANI GAMBOA External Ocular Photography External Ocular Photography [phone] JUANI GAMBOA Computerized Corneal Topography Computerized Corneal Topography [phone] JUANI GAMBOA Determination Of Refractive State Determination Of Refractive State 90595 015 JUANI GAMBOA Ophthalmological New Patient Start Comprehensive Care Ophthalmological New Patient Start Comprehensive Care [id number] 015 JUANI GAMBOA Psychotherapy Individual Approximately 60 Minutes 015 JERRY RAMAN Psychiatric Diagnostic Evaluation Psychiatric Diagnostic Evaluation [phone] JERRY RAMAN Non-Physician Phone Call To Pt/Provider Intermed (11-20 min) Non-Physician Phone Call To Pt/Provider Intermed (11-20 min) [phone] ROGELIO COOK Ophthalmological Prior Patient Start Comprehensive Care Ophthalmological Prior Patient Start Comprehensive Care [id number] 015 RICH ELENA Corneal Pachymetry Corneal Pachymetry 09785 015 RICH ELENA Computerized Corneal Topography Computerized Corneal Topography 70605 015 RICH ELENA Determination Of Refractive State Determination Of Refractive State 81715 015 RICH ELENA Psychotherapy Individual Approximately 60 Minutes 014 MAYRA ALFARO Psychotherapy Individual Approximately 30 Minutes 014 JESUS HAHN Psychotherapy With Medication Management Psychotherapy With Medication Management [phone] JESUS HAHN Psychiatric Diagnostic Evaluation Initial Psychiatric Diagnostic Evaluation Initial [id number] 014 MAYRA ALFARO Spectacles Services Fitting Monofocal Except For Aphakia Spectacles Services Fitting Monofocal Except For Aphakia 70428 014 GEE HARRIS Determination Of Refractive State Determination Of Refractive State 89894 014 GEE HARRIS Ophthalmological New Patient Start Comprehensive Care Ophthalmological New Patient Start Comprehensive Care 07371 014 GEE HARRIS Psychotherapy With Medication Management Psychotherapy With Medication Management 96258 014 JESUS HAHN Psychologic Testing And Report Administered By Computer Psychologic Testing And Report Administered By Computer [id number] 014 TEENA STANLEY Psychotherapy With Medication Management Psychotherapy With Medication Management 07000 014 JESUS HAHN Psychiatric Diagnostic Evaluation Review of Records and Reports Psychiatric Diagnostic Evaluation Review of Records and Reports 35429 013 DIMAS SUERO Psychotherapy Individual Approximately 60 Minutes 013 DIMAS SUERO Psychotherapy Individual Approximately 60 Minutes 013 DIMAS SUERO Psychotherapy Individual Approximately 60 Minutes 013 DIMAS SUERO Psychotherapy With Medication Management Psychotherapy With Medication Management 33222 013 KAVYA HAHNE Aris [facility] Psychiatric Diagnostic Evaluation Comprehensive Examination Psychiatric Diagnostic Evaluation Comprehensive Examination 77574 013 DIMAS SUERO Psychotherapy Individual Approx 30 Min W/ Medical Evaluation & Management Psychotherapy Individual Approx 30 Min W/ Medical Evaluation & Management 48178 013 LAURAKANE JESUS Aris [facility] Psychotherapy With Medication Management Psychotherapy With Medication Management 27418 012 JESUS HAHN [facility] Psychologic Testing And Report Administered By Computer Psychologic Testing And Report Administered By Computer [id number] 012 TEENA STANLEY [facility] Psychiatric Diagnostic Evaluation Comprehensive Examination Psychiatric Diagnostic Evaluation Comprehensive Examination 07199 012 JESUS HAHN [facility] Psychiatric Diagnostic Evaluation Comprehensive Examination Psychiatric Diagnostic Evaluation Comprehensive Examination 79692 012 JENNA HECTOR [facility] Spectacles Services Fitting Monofocal Except For Aphakia Spectacles Services Fitting Monofocal Except For Aphakia [phone] DONALD YOUSIF 1 FOC, 1 GMI, 1 S91A. PD 59 DoD Determination Of Refractive State Determination Of Refractive State [phone] DONALD YOUSIF [facility] Ophthalmological New Patient Start Comprehensive Care Ophthalmological New Patient Start Comprehensive Care [phone] DONALD YOUSIF [facility] Coordinated care fee, maintenance rate SKYLA BRUCE Case Management, each [facility] Coordinated care fee, maintenance rate 011 [facility] Social History Combined list of available smoking, tobacco, and other social history from Department of Defense and Veterans Affairs facilities. Social History Type Response Date Comment Sour e Tobacco smoking status NCIS [facility] FORMER USER 12/27/2022 [facility] History of tobacco use FL-TOBACCO QUIT 1 5 YRS OR MORE 12/27/2022 [facility] History of tobacco use FL-TOBACCO FORMER USER 02/23/2022 [facility] History of tobacco use FL-TOBACCO NEVER USED 01/14/2021 [facility] History of tobacco use FL-TOBACCO QUIT 5 TO < 15 YRS 06/13/2019 [facility] History of tobacco use FL-TOBACCO QUIT 5 TO < 15 YRS 06/13/2018 [facility] This section is an empty social history section. DoD
--- OUTSIDE RECORDS SUMMARY | 2024-01-18 21:35 | XMS_ITS | Clinical Summary ---
Author Organization [employer] [facility] Address [place], [place] [address] Care Team Providers Care Attending Pathologist Name Role Phone Cici Hartley DO Primary Care Provider Allergies Active Allergy Reactions Criticality Noted Date [...] needed (seasonal allergies). 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 DEVELOPER: 05/15/2021 as expected Episode of recurrent major depressive disorder 1 Mild TBI (traumatic brain injury) 01/07/2020 Overview (01/07/2020): 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 Immunizations Name Administration Dates Next Due AMB Influenza, IIV4 PF (=>6 mos Flulaval,Fluzone Fluarix)(Flu Clinic Only) 02/04/2020 Anthrax Vaccine 05/15/2013, 1,01/10/2008,02/25,08/22/2006,07/19/2006,06/07/2005 COVID-19 vaccine ([employer] NTech 30mcg/0.3mL) PF, MDV 03/26/2021,06/15/2020,05/25/2020 Hepatitis A (Adult) 11/25/1997,01/04/1997 Hepatitis B (Adult) 06/19/1999,12/23/1997,1997 Influenza Virus, Unspecified 01/14/2021, 01/25/2019,12/27/2016,01/21,01/09/2013,09/29/2010 Influenza, IIV4 02/23/2022 Influenza, Whole Virus 02/26/2004 Influenza,LAIV4 Live Intrana patrick (Flumist) 02/03/2015,01/26/2012 Romanian Encephalitis 07/15/2003,06/10/2003,05/12 MMR 01/04/1997 MMR, Unspecified 05/15/2013 Meningococcal Vaccine (Menomune) 12/28/1996 Oral Polio Vaccine 01/04/1997 Rabies Vaccine 07/30/2003,06/10/2003,05/30/2003 Smallpox (Vaccinia) Live [id number] 02/07/2004 TD, UNSPECIFIED 09/10/2016 Td (Age >=7 [...] Sex Assigned at Male 05/20/2021 8:39 PM TRAVEL REGISTERED NURSE NICU Gender Identity Male 05/20/2021 8:39 PM TRAVEL REGISTERED NURSE NICU Sexual Orientation Straight 05/20/2021 8: 39 PM TRAVEL REGISTERED NURSE NICU Obstetrics History Last Filed Vital Signs Vital [...] - 199 mg/dL 11/17/2021 6:34 PM CDT [facility] TRIGLYCERIDES 98 <150 mg/dL 11/17/2021 6:34 PM CDT [facility] HDL CHOLESTEROL 46 >40 mg/dL 6:34 PM CDT [facility] NON-HDL CHOLESTEROL 170(H) <145 mg/dl 11/17/2021 6:34 PM CDT [facility] CHOL/HDL RATIO 4.70(H) <4.50 11/17/2021 6:34 PM CDT [facility] LDL CHOLESTEROL 150(H) <=130 mg/dL 11/17/2021 6:34 PM CDT [facility] VLDL CHOLESTEROL 20 <=30 mg/dL 11/17/2021 6:34 PM CDT [facility] PROVIDER ORDERED STATUS RANDOM 11/17/2021 6:34 PM CDT [facility] Blood BLOOD SPECIMEN / Unknown Venipuncture / Unknown 11/17/2021 10:34 AM CDT 11/17/2021 10:34 AM CDT Cici Quintanamatt JOINER CHEMISTRY [facility] [address] [place] [address], * ANTI HCV (11/17/2021 10:34 AM CDT) HEPATITIS C ANTIBODY Non-React mi Non-React mi 11/17/2021 6:31 PM CDT [facility] Comment:Antibodies to HCV no t detected; does not exclude the possibility of exposure to HCV. Blood BLOOD SPECIMEN / Unknown Venipuncture / Unknown 11/17/2021 10:34 AM CDT 11/17/2021 10:34 AM CDT Cicialtagracia Esquivel Odilia JOINER SEND OUTS [facility] [address] [place] [address], from Last 3 Months or Most Recently Relevant to Health Maintenance Advance Directives * Full Code (Latest Code Status on File) Date Activated Date Inactivated Comments 06/20/2023 5:07 PM 06/21/2023 1:32 PM Question Answer Comments Code Status Discussion: Other Care Teams Attending Pathologist Relationship Specialty Start Date End Date Cici Hartley DO [address] [place] [address] PCP - General Family Practice 06/18/20
== END 2024-01-18 21:45 | disposition home or self-care (01) ==
PROVIDERS: Emergency Provider Family Medicine; PCP Family Medicine
DX: R50.9 Fever, unspecified (principal); S61.102A Unspecified open wound of left thumb with damage to nail, initial encounter
CPT/HCPCS: 99283